=== PATIENT | female | born 1945 | race Caucasian/White ===

== ENCOUNTER 2022-02-05 08:04 | Outpatient (REF) | payer OTHER, SELFPAY | END 2022-02-05 08:05 | disposition home or self-care (01) | LOC: HO.HOSX 08:04 | PROVIDERS: Visit Provider Physician Assistant | DX: S42.201D Unspecified fracture of upper end of right humerus, subsequent encounter for fracture with routine healing (principal) | CPT/HCPCS: 99212 ==

== ENCOUNTER 2022-03-07 06:15 | Outpatient (REF) | payer OTHER, SELFPAY ==
--- NOTE | ~2022-03-07 | XR_ITS ---
EXAMINATION: XR SHOULDER, RIGHT CLINICAL INFORMATION: Pain. COMPARISON: Prior radiographs, most recently 01/29/2022. TECHNIQUE: AP neutral and scapular Y views of the right shoulder are submitted. FINDINGS: There is very mild bony demineralization. An old, healed fracture is redemonstrated of the right humeral neck, with residual deformity. A subacute, healing crescentic fracture is redemonstrated of the greater tuberosity and lateral head portion of the proximal right humerus. There is again mild displacement of the fracture fragment, with some callus formation. No dislocation is seen. The glenohumeral joint is intact. The acromioclavicular and coracoclavicular intervals are normal. XR/XR shoulder RT min 2V IMPRESSION: An old, healed right humeral neck fracture is seen, with residual deformity. There is a superimposed subacute, healing crescentic fracture fragment noted of the greater tuberosity and lateral head portion of the proximal right humerus. This shows stable mild displacement. There is good callus formation.
== END 2022-03-07 06:16 | disposition home or self-care (01) ==
LOC: HO.HOSX 06:15
PROVIDERS: Visit Provider Physician Assistant
DX: M25.511 Pain in right shoulder (principal)
CPT/HCPCS: 73030

== ENCOUNTER 2022-04-18 08:03 | Outpatient (REF) | payer OTHER, SELFPAY ==
--- NOTE | ~2022-04-18 | XR_ITS ---
EXAMINATION: XR SHOULDER, RIGHT CLINICAL INFORMATION: Fracture. COMPARISON: Previous x-ray most recent February 2022. TECHNIQUE: Three views of the right shoulder. FINDINGS: There is an old right humeral neck fracture. There is a healing right greater tuberosity fracture. Fracture fragment projects superior posterior to the humeral head. This does not appear appreciably changed. Glenohumeral alignment is normal. There is arthritis at the acromioclavicular joint. Soft tissues are unremarkable. XR/XR shoulder RT min 2V IMPRESSION: Healing displaced right greater tuberosity fracture. Old healed right humeral neck fracture.
== END 2022-04-18 08:04 | disposition home or self-care (01) ==
LOC: HO.HOSX 08:03
PROVIDERS: Visit Provider Physician Assistant
DX: M25.511 Pain in right shoulder (principal)
CPT/HCPCS: 73030

== ENCOUNTER 2022-05-22 15:00 | Outpatient (RCR) | payer OTHER, SELFPAY ==
[2022-04-01 14:06] VITALS: BP 78/45; PULSE 56
--- NOTE | 2022-04-01 14:59 | MHC.PT.EP ---
[facility] [place] [facility] [place] [facility] [place] [facility] [address] [phone] F: [phone] F: [phone] F: [phone] F: [phone] Physical Therapy Plan of Care Date of Evaluation: Date of Surgery: NA Diagnosis: Unspecified fracture of upper end of unspecified humerus, intial encounter for closed fracture of proximal end of humerus. (R humerus fracture) Assessment: Louisa is a 76 year old female who is referred to PT for Unspecified fracture of upper end of unspecified humerus, intial encounter for closed fracture of proximal end of humerus(R humerus fracture) . She is 2.5 month post fracture. On PT examination she presented with 8/10 pain in R shoulder which gets worse with movements, TTP over R shoulder joint line, decreased R shoulder ROM, decreased R shoulder strength, and altered posture. Due to these impairments she has difficulty performing ADLS which require her to reach and carry heavy weights. 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 She would benefit from skilled PT to address the aforementioned impairments and improve tolerance to functional activities. Frequency and Duration: The patient will be seen 2/week for 6 weeks. Short Term Goals: 1. Pt will have 50% decrease in pain which will enable to sleep without pain in 2 weeks. 2. Pt will be able move shoulder through all planes of motion without pain which will enable her to dress her upper body without limitations in 3 weeks. Penitentiary Goals: 1. Pt will demonstrate an increase in muscle strength by 1 grade which will enable to remove things from over head cabinets without help in 5 weeks. 2. Pt will be independent with HEP and return to PLOF in 6 weeks. Treatment Plan: Modalities to reduce pain, spasms and effusion. Manual therapy to restore motion and function. Therapeutic exercise to improve strength and flexibility. Neuromuscular re-education for posture and balance. Therapeutic activities to return to functional activities of daily living. Electronically signed by: Brea Moreno PT DPT Please sign and return to therapist. Thank you for your referral.
--- NOTE | 2022-05-23 13:59 | MHC.PT.DC ---
[facility] [place] [facility] [place] [facility] [address]i Nicole [address] [phone] F: [phone] F: [phone] F: [phone] F: [phone] Physical Therapy Discharge Report Diagnosis: Unspecified fracture of upper end of unspecified humerus, intial encounter for closed fracture of proximal end of humerus. (R humerus fracture) Date of Surgery: NA Date of Evaluation: 04/01/22 Date of Discharge: 05/22/22 Treatments to Date: 11 Cancellations to Date: 0 No Shows to Date: Discharge Status: Achieved Goals Improved Function Independent with HEP Discharge Summary: She has demonstrated significant improvement in ROM, strength and improved her functional ability with ADLs, making it easier to wash her hair, reach high cabinet and bathe. She can continue with HEP and is discharged from PT. Electronically signed by: Josefina Golden, PT, DPT Please sign and return to therapist. Thank you for your referral.
== END 2022-05-23 13:59 | disposition home or self-care (01) ==
LOC: HO.PT 15:00
PROVIDERS: PCP Family Medicine; Visit Provider Physician Assistant
DX: S42.201D Unspecified fracture of upper end of right humerus, subsequent encounter for fracture with routine healing (principal)
CPT/HCPCS: 97110; 97140; 97161

== ENCOUNTER 2022-05-30 12:30 | Outpatient (REF) | payer OTHER, SELFPAY ==
--- NOTE | ~2022-05-30 | XR_ITS ---
EXAMINATION: XR SHOULDER, RIGHT CLINICAL INFORMATION: Pain right shoulder. COMPARISON: None TECHNIQUE: 3 views of the right shoulder. FINDINGS: The bones and soft tissues are normal. No fracture. Glenohumeral and acromioclavicular alignment is anatomic with normal joint space. No abnormal soft tissue calcifications. XR/XR shoulder RT min 2V IMPRESSION: Unremarkable right shoulder.
== END 2022-05-30 12:31 | disposition home or self-care (01) ==
LOC: HO.HOSX 12:30
PROVIDERS: Visit Provider Physician Assistant
DX: S42.201A Unspecified fracture of upper end of right humerus, initial encounter for closed fracture (principal)
CPT/HCPCS: 73030; 99212

== ENCOUNTER 2022-10-21 13:29 | Inpatient (IN) | payer OTHER, SELFPAY ==
[2022-10-21] VITALS (8 sets, daily range): BP systolic 99–154; BP diastolic 57–119; PULSE 78–131; RESP 16–27; TEMP 36.3–37.1; O2SAT 92–98; BMI 24.9
--- NOTE | ~2022-10-21 | XR_ITS ---
EXAMINATION: XR CHEST CLINICAL INFORMATION: Shortness of breath. COMPARISON: 06/14/2019 chest radiograph. TECHNIQUE: Frontal view of the chest was obtained. FINDINGS: Left upper lobe infiltrates are seen. There is mild elevation of the left hemidiaphragm. Surgical clips overlie the left cardiac margin. Multilevel sternotomy wires are again noted without interval change. Mild cardiac enlargement. The mediastinal structures are unremarkable. XR/XR chest 1V IMPRESSION: Left upper lobe infiltrate/atelectasis.
--- NOTE | ~2022-10-21 | US_ITS ---
EXAMINATION: US VENOUS ULTRASOUND WITH DOPPLER LOWER EXTREMITY, BILATERAL CLINICAL INFORMATION: Swelling. Edema in the calf. COMPARISON: Venous Doppler ultrasound exam right lower extremity 08/09/2019 TECHNIQUE: Ultrasound of the deep veins is performed from the hip to the calf with compression sonography and color and pulse Doppler assessment. Spectral analysis with color-flow imaging is performed. FINDINGS: RIGHT: There is normal venous compression and respiratory variation and augmented flow. The visualized common femoral vein, superficial femoral vein, profunda femoral vein, popliteal vein, and the trifurcation region shows no evidence of deep venous thrombosis. There is no significant popliteal fossa cyst. LEFT: There is normal venous compression and respiratory variation and augmented flow. The visualized common femoral vein, superficial femoral vein, profunda femoral vein, popliteal vein, and the trifurcation region shows no evidence of deep venous thrombosis. There is no significant popliteal fossa cyst. If the patient's symptoms persist, followup ultrasound in 5 days 7 days might be of value to exclude proximal propagation from a non-visualized calf vein. US/US venous duplex LE IMPRESSION: No DVT demonstrated in the bilateral lower extremity.
--- NOTE | ~2022-10-21 | CT_ITS ---
EXAMINATION: CT CHEST WITHOUT CONTRAST CLINICAL INFORMATION: Abnormal x-ray. Shortness of breath. COMPARISON: Chest x-ray 10/21/2022 TECHNIQUE: Multidetector volumetric CT imaging of the chest was done. Axial MIP volume rendering provided. Sagittal and coronal reformatted images were obtained. This CT examination was performed using dose optimization techniques as appropriate, variously including the following: *Automated exposure control *Adjustment of mA and/or kV according to patient size (this includes techniques or standardized protocols for targeted exams where dose is matched to indication/reason for exam; i.e. extremities or head) *Use of iterative reconstruction technique DLP: 219 mGy-cm FINDINGS: LUNGS: Patchy alveolar and interstitial airspace opacity with air bronchograms in the left upper and left lower lobe. There are also a few scattered groundglass opacities in the right lung. MEDIASTINUM: Borderline lymphadenopathy at the AP window and pretracheal retrovascular space with lymph nodes measuring up to about 1.2 cm in short axis diameter. The heart size is normal. No pericardial effusion. Scattered vascular calcifications of the wall of aorta. No aneurysm of aorta. Moderate volume of coronary artery calcification. Status post median sternotomy. Thyroid is unremarkable. CORONARY ARTERY CALCIFICATION: Moderate volume of coronary calcification. PLEURA: Small to moderate volume bilateral pleural effusions AXILLA: No lymphadenopathy. UPPER ABDOMEN: Calcified gallstones in neck of the gallbladder measuring 1.5 cm. There are a few hepatic cysts. Largest hepatic cyst is in the left lobe of liver measuring 2.2 cm. Multiple healed left-sided rib fractures. No acute osseous abnormality. Chronic degenerative change and posttraumatic changes of the right humeral head and glenohumeral joint OSSEOUS STRUCTURES: Status post median sternotomy. CT/CT chest wo IV con IMPRESSION: 1. Patchy alveolar and interstitial airspace opacity in the left lung. There are also a few scattered groundglass opacities in the right lung. 2. Small to moderate volume bilateral pleural effusions. 3. Cholelithiasis. 4. Status post median sternotomy. Fleischner guidelines were followed.
--- NOTE | 2022-10-21 13:39 | ED_ITS ---
HPI - Extremity Problem General Chief complaint: General Medical <ESSENCE Becerra - Last Filed: 10/21/22 13:45> Stated complaint: edema both legs <ESSENCE Becerra - Last Filed: 10/21/22 13:45> Time Seen by Provider: 10/21/22 14:20 <ESSENCE Becerra - Last Filed: 10/21/22 13:45> Source: patient <Aurelia Mcdonough MD - Last Filed: 10/21/22 18:11> Mode of arrival: ambulatory <Aurelia Mcdonough MD - Last Filed: 10/21/22 18:11> Limitations: no limitations <Aurelia Mcdonough MD - Last Filed: 10/21/22 18:11> History of Present Illness HPI Narrative: A 77-year-old female brought in by her DIGITAL COURT REPORTER for evaluation of bilateral leg swelling. Patient with history of CAD, quadruple bypass open-heart surgery, CHF, HTN, CKD. Presented today for evaluation of bilateral lower leg extremities, patient declined exertional dyspnea or orthopnea or PND. Bilateral lower extremities started as mild now it is getting more extending to above the knee. No fever, no chills. <Aurelia Mcdonough MD - Last Filed: 10/21/22 18:11> Related Data Home medications: Home Medications Medication Instructions Recorded Confirmed albuterol sulfate 90 mcg/actuation 2 puff inhalation BID PRN Cough 10/21/22 10/21/22 aerosol inhaler calcium carbonate 200 mg calcium 400 mg PO BID 10/21/22 10/21/22 (500 mg) chewable tablet (Antacid (calcium carbonate)) carboxymethylcellulose sodium 0.5 1 drp ophthalmic (eye) QID PRN Dry 10/21/22 10/21/22 % eye drops in a dropperette Eye(S) clonidine 0.3 mg/24 hr weekly 1 patch transdermal QWEEK 10/21/22 10/21/22 transdermal patch ferrous sulfate 325 mg (65 mg 325 mg PO DAILY 10/21/22 10/21/22 iron) tablet furosemide 20 mg tablet 40 mg PO DAILY 10/21/22 10/21/22 losartan 25 mg tablet 25 mg PO DAILY 10/21/22 10/21/22 mirabegron 25 mg tablet,extended 25 mg PO DAILY 10/21/22 10/21/22 release 24 hr montelukast 10 mg tablet 10 mg PO BEDTIME 10/21/22 10/21/22 multivitamin 1 tab PO DAILY 10/21/22 10/21/22 potassium chloride 20 mEq oral 40 meq PO DAILY 10/21/22 10/21/22 packet psyllium 2 packet PO DAILY 10/21/22 10/21/22 rosuvastatin 40 mg tablet 40 mg PO DAILY 10/21/22 10/21/22 sennosides 8.6 mg-docusate sodium 1 tab-cap PO BID 10/21/22 10/21/22 50 mg tablet (Senna Plus) Previous Rx's Medication Instructions Recorded bupropion HCl 200 mg tablet,12 hr 200 mg PO DAILY #90 tabs 02/05/22 sustained-release carvedilol 25 mg tablet 25 mg PO BID #180 tabs 02/05/22 clopidogrel 75 mg tablet 75 mg PO DAILY #90 tabs 02/05/22 pantoprazole 40 mg tablet,delayed 40 mg PO DAILY #90 tabs 02/05/22 release venlafaxine 75 mg capsule,extended 75 mg PO DAILY #90 caps 02/05/22 release 24 hr <ESSENCE Becerra - Last Filed: 10/21/22 13:45> Allergies/Adverse reactions: Allergies Allergy/AdvReac Type Severity Reaction Status Date / Time iodine Allergy Unknown Unknown Verified 10/21/22 13:40 amlodipine [From [facility]] AdvReac Mild FATIGUE Verified 10/21/22 13:40 jovi inhibitors Allergy Unknown Unknown Uncoded 10/21/22 13:40 bees Allergy Unknown Unknown Uncoded 10/21/22 13:40 cardiac med not sure of the Allergy Unknown Unknown Uncoded 10/21/22 13:40 na telfa Allergy Unknown Unknown Uncoded 10/21/22 13:40 <ESSENCE Becerra - Last Filed: 10/21/22 13:45> Review of Systems Review of Systems: All other systems are reviewed and are negative Constitutional: Reports as per HPI and Reports no additional constitutional complaints Eyes: Reports as per HPI and Reports no additional eye complaints Reports system reviewed and no additional complaints, except as documented Cardiovascular: Reports as per HPI and Reports no additional cardiovascular complaints Respiratory: Reports as per HPI and Reports no additional respiratory complaints Gastrointestinal: Reports as per HPI and Reports no additional gastrointestinal complaints Genitourinary: Reports no additional female genitourinary complaints Musculoskeletal: Reports no additional musculoskeletal complaints Skin/Breast: Reports system reviewed and no additional complaints, except as docu Psychiatric: Reports no additional psychiatric complaints Endocrine: Reports no additional endocrine complaints Hematologic/Lymphatic: Reports no additional hematologic/lymphatic complaints Allergic/Immunologic: Reports no additional allergic/immunologic complaints Reports system reviewed and no additional complaints, except as documented and Reports Abnormal speech present <Aurelia Mcdonough MD - Last Filed: 10/21/22 18:11> [facility] Past Medical History Medical History: Medical History (Updated 10/21/22 @ 16:00 by Aurelia Mcdonough MD) Adjustment disorder Allergic rhinitis Anemia Asthma Atherosclerotic heart disease of [place] coronary artery with other forms of angina pectoris Chronic kidney disease Heart failure HTN (hypertension) Impaired fasting glucose Migraine Mixed hyperlipidemia Osteoporosis Traumatic brain injury Vitamin D deficiency <ESSENCE Becerra - Last Filed: 10/21/22 13:45> Surgical History: Surgical History (Updated 10/21/22 @ 16:50 by ESSENCE Guevara) H/O four vessel coronary artery bypass graft <ESSENCE Becerra - Last Filed: 10/21/22 13:45> Social History Social History: Social History Alcohol intake: current Alcohol intake frequency: a few times a month Patient Tobacco Use Status: Former Tobacco user Quit Date: 1970 Smoked in Last 30 Days: No Use of substances other than those prescribed or required for medical reasons: No Advance Directives: Yes Advance Directives on File: No Nutrition Risks: No Nutritional Risk Current occupational status: retired 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, 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 <ESSENCE Becerra - Last Filed: 10/21/22 13:45> Physical Exam Vital Signs: Vital Signs: Last Vital Signs Temp 97.8 F 10/21/22 16:49 Pulse 11 L 10/21/22 16:49 Resp 20 10/21/22 16:49 BP 154/119 H 10/21/22 16:49 Pulse Ox 92 10/21/22 16:49 O2 Del Method Room Air 10/21/22 16:49 BMI result Body Mass Index 24.9 <ESSENCE Becerra - Last Filed: 10/21/22 13:45> Vital Signs: Last Vital Signs Temp 97.8 F 10/21/22 16:49 Pulse 11 L 10/21/22 16:49 Resp 20 10/21/22 16:49 BP 154/119 H 10/21/22 16:49 Pulse Ox 92 10/21/22 16:49 O2 Del Method Room Air 10/21/22 16:49 BMI result Body Mass Index 24.9 Vital signs have been reviewed as appeared to be correct. Blood pressure elevated. Heart rate elevated. Respiration rate normal. Temperature normal. Oxygen saturation normal. <Aurelia Mcdonough MD - Last Filed: 10/21/22 18:11> Appearance: Alert. Oriented X3. No acute distress. Head: Normal external exam. Normocephalic. Atraumatic. No [place] signs noted. No raccoon eyes noted Eyes: PERRLA. EOMI. Conjunctiva and sclera normal. Eyelids normal. ENT: TM's Normal. Pharynx normal. Uvula midline. Moist mucous membranes. No trismus noted. No drooling noted. No muffled voice noted. Neck: Normal inspection. Neck supple. FROM. No adenopathy. Thyroid Normal. No meningeal signs. No neck mass noted. CVS: Normal heart rate and rhythm. Heart sound normal. No murmurs noted. Pulses normal throughout. Respiratory: No respiratory distress. Painless inspiration. Breath sounds normal. No wheezes/rales/rhonchi noted. Chest nontender. No accessory muscle usage noted or decreased air movement noted. Abdomen: Soft and nontender. Bowel sounds normal in all 4 quadrants. No distention noted. No organomegaly noted. No visible injury noted. Back: No CVA tenderness. Full range of motion noted. Skin: Skin warm and dry. Normal skin color. Normal skin turgor. No rashes/lesions/lacerations noted. Extremities:+3 lower extremity edema bilaterally. Extremities exhibit normal range of motion. Extremities nontender. Neuro: Oriented X 3. Cranial nerve exam: II-XII are grossly intact No motor deficit. No sensory deficit. Reflexes normal. <Aurelia Mcdonough MD - Last Filed: 10/21/22 18:11> Course Course Course Narrative: RME - 77 y/o female CAD s/p CABG 2006 @ [facility], CHF on lasix 40 mg daily, CKD, diverticulosis, who presents to the ER for evaluation of bilateral leg swelling and pain that started [address] REPORTER noticed it last week and it has been getting worse. She also reports shortness of breath. HR 133 in triage. BP 150s. Nontoxic, speaking in complete sentences. No chest pains or SOB at this time. She is not on anticoagulation. Plan: EKG, labs, CXR, LE dopplers <ESSENCE Becerra - Last Filed: 10/21/22 13:45> Reevaluation(s) Reevaluation #1: 77-year-old female came in for bilateral lower extremities swelling kenia luation found to be an new onset rapid atrial flutter, patient responded to 20 mg of Cardizem IV heart rate is ranging from 90s to 110s maintenance oral Cardizem was given, patient also was given 40 mg of Lasix for diuresis. Troponin elevation with no delta change. Bilateral lower extremities show no DVT. No severe sepsis or septic shock, slight lactic acidosis due to CHF, tachycardia/tachypnea is due to atrial fibrillation and not infection. <Aurelia Mcdonough MD - Last Filed: 10/21/22 18:11> Time: 15:51 <Aurelia Mcdonough MD - Last Filed: 10/21/22 18:11> Medications Administered Generic Name Dose Route Start Last Admin Trade Name Freq PRN Reason Stop Dose Admin Enoxaparin Sodium 60 mg 10/21/22 17:00 10/21/22 17:27 Enoxaparin Sodium 40 Mg/0.4 Ml Syringe SUBCUT 60 mg Q12H LAVERN Administration Discontinued Medications Generic Name Dose Route Start Last Admin Trade Name Freq PRN Reason Stop Dose Admin Diltiazem HCl 20 mg 10/21/22 14:30 10/21/22 14:42 Diltiazem Hcl 50 Mg/10 Ml Vial IVPUSH 10/21/22 14:31 20 mg STAT STA Administration Diltiazem HCl 30 mg 10/21/22 15:49 10/21/22 16:31 Diltiazem Hcl 30 Mg Tablet PO 10/21/22 15:50 30 mg ONCE ONE Administration Protocol Furosemide 40 mg 10/21/22 15:43 10/21/22 16:34 Furosemide 40 Mg/4 Ml Vial IVPUSH 10/21/22 15:44 40 mg ONCE ONE Administration Protocol Ceftriaxone Sodium 1 gm/ 50 mls @ 100 mls/hr 10/21/22 16:01 10/21/22 17:24 Sodium Chloride IV 10/21/22 16:30 Infused ONCE ONE Infusion <ESSENCE Becerra - Last Filed: 10/21/22 13:45> Medications Administered Generic Name Dose Route Start Last Admin Trade Name Freq PRN Reason Stop Dose Admin Enoxaparin Sodium 60 mg 10/21/22 17:00 10/21/22 17:27 Enoxaparin Sodium 40 Mg/0.4 Ml Syringe SUBCUT 60 mg Q12H LAVERN Administration Discontinued Medications Generic Name Dose Route Start Last Admin Trade Name Freq PRN Reason Stop Dose Admin Diltiazem HCl 20 mg 10/21/22 14:30 10/21/22 14:42 Diltiazem Hcl 50 Mg/10 Ml Vial IVPUSH 10/21/22 14:31 20 mg STAT STA Administration Diltiazem HCl 30 mg 10/21/22 15:49 10/21/22 16:31 Diltiazem Hcl 30 Mg Tablet PO 10/21/22 15:50 30 mg ONCE ONE Administration Protocol Furosemide 40 mg 10/21/22 15:43 10/21/22 16:34 Furosemide 40 Mg/4 Ml Vial IVPUSH 10/21/22 15:44 40 mg ONCE ONE Administration Protocol Ceftriaxone Sodium 1 gm/ 50 mls @ 100 mls/hr 10/21/22 16:01 10/21/22 17:24 Sodium Chloride IV 10/21/22 16:30 Infused ONCE ONE Infusion <Aurelia Mcdonough MD - Last Filed: 10/21/22 18:11> Medical Decision Making Differential Diagnosis Differential Diagnoses: The differential diagnosis associated with the presentation includes (CHF, ACS, DVT, atrial flutter/atrial fibrillation, acute on chronic renal insufficiency, electrolyte disturbance, anemia.) <Aurelia Mcdonough MD - Last Filed: 10/21/22 18:11> Admission/Observation Consideration of admission/observation: Escalation of care including admission/observation considered <Aurelia Mcdonough MD - Last Filed: 10/21/22 18:11> Consult Healthcare Provider Management of the patient was discussed with: Hospitalist <Aurelia Mcdonough MD - Last Filed: 10/21/22 18:11> Lab Data [facility] Lab Attestation statement: I reviewed the patient's lab results. <Aurelia Mcdonough MD - Last Filed: 10/21/22 18:11> Result Diagrams: 10/21/22 14:14 10/21/22 14:14 <ESSENCE Becerra - Last Filed: 10/21/22 13:45> Labs: Lab Results 10/21/22 10/21/22 10/21/22 Range/Units 14:14 14:14 14:14 WBC 4.9 (4.8-10.8) X10*3/uL RBC 3.92 L (4.20-5.50) X10*6/uL Hgb 13.3 (12.0-16.0) g/dl Hct 41.2 (37.0-47.0) % MCV 105.1 H (80.0-98.0) fL MCH 33.9 H (27.0-33.0) pg MCHC 32.3 (31.0-35.0) g/dl RDW 14.9 (11.0-16.0) % Plt Count 204 (160-400) X10*3/uL MPV 10.8 (9.4-12.3) fL Immature Gran % (Auto) 0.2 (0.0-0.4) % Neut % (Auto) 68.4 (45-73) % Lymph % (Auto) 19.2 L (20-40) % Davidson % (Auto) 9.4 (2-11) % Eos % (Auto) 1.2 (0-4) % Baso % (Auto) 1.6 (0-2) % Lymph # (Auto) 0.9 L (1.2-4.9) X10*3/uL Davidson # (Auto) 0.5 (0.1-1.2) X10*3/uL Eos # (Auto) 0.1 (0.0-0.4) X10*3/uL Baso # (Auto) 0.1 (0.0-0.2) X10*3/uL Abs Immat Gran (auto) 0.01 (0.00-0.03) X10*3/uL Absolute Neuts (auto) 3.4 (2.0-8.3) x10*3/uL Absolute Nucleated RBC 0.000 (0.0-0.012) X10*3/uL Nucleated RBC % (auto) 0.0 (0.0-0.2) /100WBC Sodium 139 (135-145) mmol/L Potassium 3.6 (3.3-5.1) mmol/L Chloride 103 (96-108) mmol/L Carbon Dioxide 23 (22-29) mmol/L Anion Gap 17 (12-20) BUN 19 H (9-16) mg/dL Creatinine 1.45 H (0.5-1.4) mg/dL Estim Creat Clear Calc 27.4 Estimated GFR 35 Random Glucose 133 H (60-115) mg/dL Calcium 9.2 (8.4-10.2) mg/dL Magnesium 2.2 (1.6-2.6) mg/dL Total Bilirubin 1.3 H (0.0-1.0) mg/dL Direct Bilirubin 0.4 (0.0-0.5) mg/dL AST 28 (5-31) U/L ALT 17 (0-31) U/L Alkaline Phosphatase 86 (39-117) U/L Troponin I High Sens (<3.5-17.0) ng/L B-Natriuretic Peptide 2735 H (<100) pg/mL Total Protein 6.2 L (6.5-8.0) g/dL Albumin 3.7 (3.5-5.0) g/dL Vitamin B12 328 (200-900) pg/mL Folate 10.3 (> or = 4.0) ng/mL TSH 1.06 (0.32-4.0) uIU/mL COVID-19 (THOMAS) (Negative) COVID-19 Clin Com 10/21/22 10/21/22 Range/Units 14:14 14:36 WBC (4.8-10.8) X10*3/uL RBC (4.20-5.50) X10*6/uL Hgb (12.0-16.0) g/dl Hct (37.0-47.0) % MCV (80.0-98.0) fL MCH (27.0-33.0) pg MCHC (31.0-35.0) g/dl RDW (11.0-16.0) % Plt Count (160-400) X10*3/uL MPV (9.4-12.3) fL Immature Gran % (Auto) (0.0-0.4) % Neut % (Auto) (45-73) % Lymph % (Auto) (20-40) % Davidson % (Auto) (2-11) % Eos % (Auto) (0-4) % Baso % (Auto) (0-2) % Lymph # (Auto) (1.2-4.9) X10*3/uL Davidson # (Auto) (0.1-1.2) X10*3/uL Eos # (Auto) (0.0-0.4) X10*3/uL Baso # (Auto) (0.0-0.2) X10*3/uL Abs Immat Gran (auto) (0.00-0.03) X10*3/uL Absolute Neuts (auto) (2.0-8.3) x10*3/uL Absolute Nucleated RBC (0.0-0.012) X10*3/uL Nucleated RBC % (auto) (0.0-0.2) /100WBC Sodium (135-145) mmol/L Potassium (3.3-5.1) mmol/L Chloride (96-108) mmol/L Carbon Dioxide (22-29) mmol/L Anion Gap (12-20) BUN (9-16) mg/dL Creatinine (0.5-1.4) mg/dL Estim Creat Clear Calc Estimated GFR Random Glucose (60-115) mg/dL Calcium (8.4-10.2) mg/dL Magnesium (1.6-2.6) mg/dL Total Bilirubin (0.0-1.0) mg/dL Direct Bilirubin (0.0-0.5) mg/dL AST (5-31) U/L ALT (0-31) U/L Alkaline Phosphatase (39-117) U/L Troponin I High Sens 52.3 H* (<3.5-17.0) ng/L B-Natriuretic Peptide (<100) pg/mL Total Protein (6.5-8.0) g/dL Albumin (3.5-5.0) g/dL Vitamin B12 (200-900) pg/mL Folate (> or = 4.0) ng/mL TSH (0.32-4.0) uIU/mL COVID-19 (THOMAS) Negative (Negative) COVID-19 Clin Com See Note <ESSENCE Becerra - Last Filed: 10/21/22 13:45> Lab Results 10/21/22 10/21/22 10/21/22 Range/Units 14:14 14:14 14:14 WBC 4.9 (4.8-10.8) X10*3/uL RBC 3.92 L (4.20-5.50) X10*6/uL Hgb 13.3 (12.0-16.0) g/dl Hct 41.2 (37.0-47.0) % MCV 105.1 H (80.0-98.0) fL MCH 33.9 H (27.0-33.0) pg MCHC 32.3 (31.0-35.0) g/dl RDW 14.9 (11.0-16.0) % Plt Count 204 (160-400) X10*3/uL MPV 10.8 (9.4-12.3) fL Immature Gran % (Auto) 0.2 (0.0-0.4) % Neut % (Auto) 68.4 (45-73) % Lymph % (Auto) 19.2 L (20-40) % Davidson % (Auto) 9.4 (2-11) % Eos % (Auto) 1.2 (0-4) % Baso % (Auto) 1.6 (0-2) % Lymph # (Auto) 0.9 L (1.2-4.9) X10*3/uL Davidson # (Auto) 0.5 (0.1-1.2) X10*3/uL Eos # (Auto) 0.1 (0.0-0.4) X10*3/uL Baso # (Auto) 0.1 (0.0-0.2) X10*3/uL Abs Immat Gran (auto) 0.01 (0.00-0.03) X10*3/uL Absolute Neuts (auto) 3.4 (2.0-8.3) x10*3/uL Absolute Nucleated RBC 0.000 (0.0-0.012) X10*3/uL Nucleated RBC % (auto) 0.0 (0.0-0.2) /100WBC Sodium 139 (135-145) mmol/L Potassium 3.6 (3.3-5.1) mmol/L Chloride 103 (96-108) mmol/L Carbon Dioxide 23 (22-29) mmol/L Anion Gap 17 (12-20) BUN 19 H (9-16) mg/dL Creatinine 1.45 H (0.5-1.4) mg/dL Estim Creat Clear Calc 27.4 Estimated GFR 35 Random Glucose 133 H (60-115) mg/dL Calcium 9.2 (8.4-10.2) mg/dL Magnesium 2.2 (1.6-2.6) mg/dL Total Bilirubin 1.3 H (0.0-1.0) mg/dL Direct Bilirubin 0.4 (0.0-0.5) mg/dL AST 28 (5-31) U/L ALT 17 (0-31) U/L Alkaline Phosphatase 86 (39-117) U/L Troponin I High Sens (<3.5-17.0) ng/L B-Natriuretic Peptide 2735 H (<100) pg/mL Total Protein 6.2 L (6.5-8.0) g/dL Albumin 3.7 (3.5-5.0) g/dL Vitamin B12 328 (200-900) pg/mL Folate 10.3 (> or = 4.0) ng/mL TSH 1.06 (0.32-4.0) uIU/mL COVID-19 (THOMAS) (Negative) COVID-19 Clin Com 10/21/22 10/21/22 Range/Units 14:14 14:36 WBC (4.8-10.8) X10*3/uL RBC (4.20-5.50) X10*6/uL Hgb (12.0-16.0) g/dl Hct (37.0-47.0) % MCV (80.0-98.0) fL MCH (27.0-33.0) pg MCHC (31.0-35.0) g/dl RDW (11.0-16.0) % Plt Count (160-400) X10*3/uL MPV (9.4-12.3) fL Immature Gran % (Auto) (0.0-0.4) % Neut % (Auto) (45-73) % Lymph % (Auto) (20-40) % [place] % (Auto) (2-11) % Eos % (Auto) (0-4) % Baso % (Auto) (0-2) % Lymph # (Auto) (1.2-4.9) X10*3/uL Davidson # (Auto) (0.1-1.2) X10*3/uL Eos # (Auto) (0.0-0.4) X10*3/uL Baso # (Auto) (0.0-0.2) X10*3/uL Abs Immat Gran (auto) (0.00-0.03) X10*3/uL Absolute Neuts (auto) (2.0-8.3) x10*3/uL Absolute Nucleated RBC (0.0-0.012) X10*3/uL Nucleated RBC % (auto) (0.0-0.2) /100WBC Sodium (135-145) mmol/L Potassium (3.3-5.1) mmol/L Chloride (96-108) mmol/L Carbon Dioxide (22-29) mmol/L Anion Gap (12-20) BUN (9-16) mg/dL Creatinine (0.5-1.4) mg/dL Estim Creat Clear Calc Estimated GFR Random Glucose (60-115) mg/dL Calcium (8.4-10.2) mg/dL Magnesium (1.6-2.6) mg/dL Total Bilirubin (0.0-1.0) mg/dL Direct Bilirubin (0.0-0.5) mg/dL AST (5-31) U/L ALT (0-31) U/L Alkaline Phosphatase (39-117) U/L Troponin I High Sens 52.3 H* (<3.5-17.0) ng/L B-Natriuretic Peptide (<100) pg/mL Total Protein (6.5-8.0) g/dL Albumin (3.5-5.0) g/dL Vitamin B12 (200-900) pg/mL Folate (> or = 4.0) ng/mL TSH (0.32-4.0) uIU/mL COVID-19 (THOMAS) Negative (Negative) COVID-19 Clin Com See Note <Aurelia Mcdonough MD - Last Filed: 10/21/22 18:11> Independent Interpretation I performed an independent interpretation of an: EKG (Atrial fibrillation at 138 beats per minutes, otherwise normal intervals, no ST-T changes, no old EKG to compare.), Plain X-Ray (Pulmonary congestion with no overt is edema) and CT Scan (Chest: No infiltrate.) <Aurelia Mcdonough MD - Last Filed: 10/21/22 18:11> Radiology Impression Discussion of test interpretation with radiology: I have reviewed the radiologist's reading. <Aurelia Mcdonough MD - Last Filed: 10/21/22 18:11> Discharge Plan Discharge Clinical Impression: CHF (congestive heart failure), Bilateral edema of lower extremity, New onset a-fib <ESSENCE Becerra - Last Filed: 10/21/22 13:45> Patient Disposition: Admitted As Inpatient <ESSENCE Becerra - Last Filed: 10/21/22 13:45>
--- NOTE | 2022-10-21 13:46 | ECG_ITS ---
Test Reason : sob Blood Pressure : / mmHG Vent. Rate : 138 BPM Atrial Rate : 000 BPM P-R Int : 000 ms QRS Dur : 076 ms QT Int : 320 ms P-R-T Axes : 000 -01 178 degrees QTc Int : 484 ms Atrial fibrillation with rapid ventricular response with premature ventricular or aberrantly conducted complexes Possible Anterior infarct , age undetermined Abnormal ECG When compared with ECG of 14-JUN-2019 18:53, Significant changes have occurred Referred By: Emelina Kemp Electronically Signed By:Adam Lowery
--- NOTE | 2022-10-21 14:16 | PC.NURSE ---
pt AOx3, machine fur cleaner intact - Afib on alize. labs drawn, IV inserted. will cont to alize
[2022-10-21 14:18] LABS: MANUAL DIFF FLAG NO
[2022-10-21 14:29] LABS: Basophils Absolute Auto 0.1 X10*3/uL (0.0-0.2); Basophils Percent Auto 1.6 % (0-2); Eosinophils Absolute Auto 0.1 X10*3/uL (0.0-0.4); Eosinophils Percent Auto 1.2 % (0-4); Hematocrit 41.2 % (37.0-47.0); Hemoglobin 13.3 g/dl (12.0-16.0); Imm Gran Abs Auto 0.01 X10*3/uL (0.00-0.03); Imm Gran Pct Auto 0.2 % (0.0-0.4); Lymphocytes Absolute Auto 0.9 X10*3/uL (1.2-4.9); Lymphocytes Percent Auto 19.2 % (20-40); Mean Corpuscular HGB Conc 32.3 g/dl (31.0-35.0); Mean Corpuscular Hemoglobin 33.9 pg (27.0-33.0); Mean Corpuscular Volume 105.1 fL (80.0-98.0); Mean Platelet Volume 10.8 fL (9.4-12.3); Monocytes Absolute Auto 0.5 X10*3/uL (0.1-1.2); Monocytes Percent Auto 9.4 % (2-11); Neutrophils Absolute Auto 3.4 x10*3/uL (2.0-8.3); Neutrophils Percent Auto 68.4 % (45-73); Platelet Count 204 X10*3/uL (160-400); Red Blood Count 3.92 X10*6/uL (4.20-5.50); Red Cell Distribution Width 14.9 % (11.0-16.0); White Blood Count 4.9 X10*3/uL (4.8-10.8)
[2022-10-21] MEDS: dilTIAZem HCL 50 MG/10 ML VIAL 20 MG IVPUSH (14:42)
[2022-10-21 14:44] LABS: Alanine Aminotransferase 17 U/L (0-31); Albumin Level 3.7 g/dL (3.5-5.0); Alkaline Phosphatase 86 U/L (39-117); Anion Gap 17 (12-20); Aspartate Amino Transferase 28 U/L (5-31); Bilirubin Direct 0.4 mg/dL (0.0-0.5); Bilirubin Total 1.3 mg/dL (0.0-1.0); Blood Urea Nitrogen 19 mg/dL (9-16); Calcium 9.2 mg/dL (8.4-10.2); Carbon Dioxide 23 mmol/L (22-29); Chloride 103 mmol/L (96-108); Creatinine Clr Calc Pharmacy 27.4; Estimated Glomerular Filt Rate 35; Glucose Random 133 mg/dL (60-115); Magnesium 2.2 mg/dL (1.6-2.6); Potassium 3.6 mmol/L (3.3-5.1); Sodium 139 mmol/L (135-145); Total Protein 6.2 g/dL (6.5-8.0)
[2022-10-21 14:46] LABS: B Type Natriuretic Peptide 2735 pg/mL (<100)
[2022-10-21 14:52] LABS: COVID-19 Test Negative (Negative); IDNOW Serial# 08D9AD1C
[2022-10-21 14:55] LABS: Troponin-I High Sensitivity 52.3 ng/L (<3.5-17.0)
[2022-10-21] MEDS: dilTIAZem HCL 30 MG TABLET PO (16:31)
[2022-10-21] MEDS: Furosemide 40 MG/4 ML VIAL IVPUSH (16:34)
--- NOTE | 2022-10-21 16:38 | PM.IMHP ---
History of Present Illness Date of Service: 10/21/22 Attending physician on admission: Robson Aguila Chief Complaint: BLE edema 77-year-old female with history of CKD stage III, hypertension, osteoporosis, CAD s/p CABG x4 2005, hyperlipidemia, depression, and mild intermittent asthma presented to the ED earlier today with her CHUCK BONER for evaluation of bilateral lower extremity pitting edema that has been worsening over the last 4-5 days. She is also reporting mild dyspnea on exertion but denies any orthopnea or PND. She does have a known history of congestive heart failure and follows with Cardiology at the [place] in [place]. Has been compliant with diuretics, though states dose was reduced to 20mg by her ndt inspector. On arrival, vital stable except for tachycardia to 130, no hypotension. EKG ordered showed atrial fibrillation with RVR and premature ventricular or aberrantly conducted complexes with rate of 138. No ST or depressions. Hematology studies unchanged from baseline. Renal function baseline, electrolyte levels normal including magnesium of 2.2. Initial troponin 52.3, repeat pending. BNP 2735. CXR shows left upper lobe infiltrate versus atelectasis. Patient does endorse chronic cough which is occasionally productive but has not changed from baseline. Venous duplex of the bilateral lower extremities negative for DVT. Denies fevers, chills, abd pain, n/v/d, melena, hematochezia, lightheadedness, shortness of breath at rest, palpitations, or chest pain. In the ED, given 20 mg IV push diltiazem followed by 30 mg p.o. diltiazem and 40 mg IV push furosemide. Pt to be admitted for new onset AFib with RVR and CHF exacerbation. Review of Systems Review of Systems: General: No fevers, malaise, unintentional weight loss HEENT: No blurred vision, diplopia. No sore throat, nasal congestion, rhinorrhea, sinus pain, ear pain Cardiovascular: +BLE edema. No chest pain, palpitations Respiratory: +vo. No orthopnea, PND, wheezing, cough GI: +constipation. No abdominal pain, nausea, vomiting, diarrhea, melena, hematochezia : No dysuria, hematuria, increased urinary frequency, decreased urinary output MSK: No myalgia, back pain Neuro: No headaches, weakness, paresthesias Skin: No rashes or lesions [facility] Medical History (Updated 10/21/22 @ 16:00 by Aurelia Mcdonough MD) Adjustment disorder Allergic rhinitis Anemia Asthma Atherosclerotic heart disease of [place] coronary artery with other forms of angina pectoris Chronic kidney disease Heart failure HTN (hypertension) Impaired fasting glucose Migraine Mixed hyperlipidemia Osteoporosis Traumatic brain injury Vitamin D deficiency Surgical History (Updated 10/21/22 @ 16:50 by ESSENCE Guevara) H/O four vessel coronary artery bypass graft Social History Alcohol intake: current Alcohol intake frequency: a few times a month Patient Tobacco Use Status: Former Tobacco user Quit Date: 1970 Smoked in Last 30 Days: No Use of substances other than those prescribed or required for medical reasons: No Advance Directives: Yes Advance Directives on File: No Nutrition Risks: No Nutritional Risk Current occupational status: retired 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, 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 Meds Allergies Allergy/AdvReac Type Severity Reaction Status Date / Time iodine Allergy Unknown Unknown Verified 10/21/22 13:40 amlodipine [From [facility]] AdvReac Mild FATIGUE Verified 10/21/22 13:40 jovi inhibitors Allergy Unknown Unknown Uncoded 10/21/22 13:40 bees Allergy Unknown Unknown Uncoded 10/21/22 13:40 cardiac med not sure of the Allergy Unknown Unknown Uncoded 10/21/22 13:40 na telfa Allergy Unknown Unknown Uncoded 10/21/22 13:40 Active Medications: Current Medications Acetaminophen (Acetaminophen 325 Mg Tablet) 650 mg PO Q6H PRN PRN Reason: Pain, Mild (Pain Scale 1-3) Docusate Sodium (Docusate Sodium 100 Mg Capsule) 100 mg PO BID LAVERN Enoxaparin Sodium (Enoxaparin Sodium 40 Mg/0.4 Ml Syringe) 60 mg SUBCUT Q12H LAVERN Ondansetron HCl (Ondansetron Hcl 4 Mg/2 Ml Vial) 4 mg IVPUSH Q8H PRN PRN Reason: Nausea and Vomiting Pharmacy Consult (Consult Rx Perform Med Rec) 1 each MISCELLANE ONCE PRN PRN Reason: Consult order Sodium Chloride (0.9 % Sodium Chloride Flush 3 Ml Syringe) 3 ml IVFLUSH QSHIFT [facility] Home Medications Medication Instructions Recorded Confirmed Last Taken Type albuterol sulfate 90 mcg/actuation 2 puff inhalation BID PRN Cough 10/21/22 10/21/22 Unknown History aerosol inhaler calcium carbonate 200 mg calcium 400 mg PO BID 10/21/22 10/21/22 Unknown History (500 mg) chewable tablet (Antacid (calcium carbonate)) carboxymethylcellulose sodium 0.5 1 drp ophthalmic (eye) QID PRN Dry 10/21/22 10/21/22 Unknown History % eye drops in a dropperette Eye(S) clonidine 0.3 mg/24 hr weekly 1 patch transdermal QWEEK 10/21/22 10/21/22 Unknown History transdermal patch ferrous sulfate 325 mg (65 mg 325 mg PO DAILY 10/21/22 10/21/22 Unknown History iron) tablet furosemide 20 mg tablet 40 mg PO DAILY 10/21/22 10/21/22 Unknown History losartan 25 mg tablet 25 mg PO DAILY 10/21/22 10/21/22 Unknown History mirabegron 25 mg tablet,extended 25 mg PO DAILY 10/21/22 10/21/22 Unknown History release 24 hr montelukast 10 mg tablet 10 mg PO BEDTIME 10/21/22 10/21/22 Unknown History multivitamin 1 tab PO DAILY 10/21/22 10/21/22 Unknown History potassium chloride 20 mEq oral 40 meq PO DAILY 10/21/22 10/21/22 Unknown History packet psyllium 2 packet PO DAILY 10/21/22 10/21/22 Unknown History rosuvastatin 40 mg tablet 40 mg PO DAILY 10/21/22 10/21/22 Unknown History sennosides 8.6 mg-docusate sodium 1 tab-cap PO BID 10/21/22 10/21/22 Unknown History 50 mg tablet (Senna Plus) Physical Exam Vital Signs and Narrative: Vital Signs: Last Vital Signs Temp 98 F 10/21/22 13:40 Pulse 105 H 10/21/22 15:54 Resp 27 H 10/21/22 15:54 BP 146/119 H 10/21/22 15:54 Pulse Ox 98 10/21/22 15:54 O2 Del Method Room Air 10/21/22 15:54 BMI result Body Mass Index 24.9 Constitutional - Awake and Alert, No apparent distress Eyes - PERRLA, EOMI Cardiovascular - S1S2, irregularly irregular, tachycardia, 3+ pitting edema BLE Respiratory - Normal lung expansion, Normal respiratory effort, No respiratory distress, expiratory wheezing RLL Gastrointestinal - NT / ND; +BS; No rebound or guarding Extremities - no calf tenderness bilaterally, no swelling Skin - Warm/Dry Neurological - Alert & oriented x3 Psychological - Appropriate affect Results Labs 10/21/22 14:14 10/21/22 14:14 Labs: Laboratory Results - last 24 hr 10/21/22 10/21/22 10/21/22 14:14 14:14 14:14 MCV 105.1 H MCH 33.9 H MCHC 32.3 RDW 14.9 Plt Count 204 MPV 10.8 Immature Gran % (Auto) 0.2 Neut % (Auto) 68.4 Lymph % (Auto) 19.2 L [place] % (Auto) 9.4 Eos % (Auto) 1.2 Baso % (Auto) 1.6 Lymph # (Auto) 0.9 L [place] # (Auto) 0.5 Eos # (Auto) 0.1 Baso # (Auto) 0.1 Abs Immat Gran (auto) 0.01 Absolute Neuts (auto) 3.4 Absolute Nucleated RBC 0.000 Nucleated RBC % (auto) 0.0 Anion Gap 17 Estim Creat Clear Calc 27.4 Estimated GFR 35 Random Glucose 133 H Calcium 9.2 Magnesium 2.2 Total Bilirubin 1.3 H Direct Bilirubin 0.4 AST 28 ALT 17 Alkaline Phosphatase 86 Troponin I High Sens B-Natriuretic Peptide 2735 H Total Protein 6.2 L Albumin 3.7 COVID-19 (THOMAS) COVID-19 Clin Com 10/21/22 10/21/22 14:14 14:36 MCV MCH MCHC RDW Plt Count MPV Immature Gran % (Auto) Neut % (Auto) Lymph % (Auto) [place] % (Auto) Eos % (Auto) Baso % (Auto) Lymph # (Auto) [place] # (Auto) Eos # (Auto) Baso # (Auto) Abs Immat Gran (auto) Absolute Neuts (auto) Absolute Nucleated RBC Nucleated RBC % (auto) Anion Gap Estim Creat Clear Calc Estimated GFR Random Glucose Calcium Magnesium Total Bilirubin Direct Bilirubin AST ALT Alkaline Phosphatase Troponin I High Sens 52.3 H* B-Natriuretic Peptide Total Protein Albumin COVID-19 (THOMAS) Negative COVID-19 Clin Com See Note Imaging Radiologist's Impressions: Impressions Chest X-Ray 10/21/22 14:55 IMPRESSION: Left upper lobe infiltrate/atelectasis. Venous Duplex 10/21/22 15:48 IMPRESSION: No DVT demonstrated in the bilateral lower extremity. Assessment and Plan (1) New onset a-fib: Status: Acute (2) CHF (congestive heart failure): Status: Acute Plan 77-year-old female with history of CKD stage III, hypertension, osteoporosis, CAD s/p CABG x4 2005, hyperlipidemia, depression, and mild intermittent asthma admitted for new onset AFib w/ RVR and acute CHF exacerbation. #New onset Atrial Fibrillation with RVR -EKG w/ AFib, rate 138 -Given 20mg IV push dilt, 30mg PO diltiazem -Continue cardedilol 25mg BID -Echo ordered -[id number] score 6. No contraindication to anticoagulation. Initiate therapeutic Lovenox 60 mg b.i.d. -Mag normal, TSH pending -appreciate cardiology input -admit to telemetry # acute CHF exacerbation -BNP >2700. Small-moderate B/l pleural effusions on chest cCT -Given 40mg IV lasix in ED, continue lasix 40mg IV daily -Echo pending -Strict I&O -Cardiac diet -Appreciate cardiology input #Elevated trop- likely related to CHF -No CP, EKG non-ishemic -Initial trop 52, repeat 50.8 #Airspace opacities on chest CT -chest CT showing patchy alveolar and interstitial airspace opacities in the left lung as well as a few scattered ground-glass opacities in the right lung -Pt reports longstanding cough, former smoker -Will cover for bacterial etiology with ceftriaxone and doxycycline x 5 days (initiated 10/21) #CAD- no anginal CP -Continue plavix, BB. Not on statin #HTN- reasonably controlled -continue home meds #Depression -continue home meds #Mild intermittent asthma- no acute exacebration -albuterol prn DVT prophylaxis- therapeutic Lovenox Full code Med rec pending Patient requires inpatient stay at least 2 midnights for management of new onset atrial fibrillation and acute CHF exacerbation requiring close cardiac monitoring, IV diuresis, IV rate control medications, and expert consultation Time Spent With Patient Time: Total time managing care of this patient today ____ minutes. Quality Stroke Does the patient have a stroke diagnosis?: No VTE Prior VTE?: No VTE Risk Level:: Medical - moderate - high VTE Device Contraindication: Treatment Not Indicated VTE Drug Contraindication: N/A - Med Ordered
--- NOTE | 2022-10-21 16:40 | PC.NURSE ---
cardizem and lasix given per order. tech drawing BC. ABX not given yet
[2022-10-21] MEDS: cefTRIAXone sodium 1 GM in 0.9 % Sodium Chloride 50 ML IV (16:47)
--- NOTE | 2022-10-21 16:48 | PC.NURSE ---
blood cultures drawn, antibiotic hung. will cont to alize
--- NOTE | 2022-10-21 17:04 | PHA.MEDREC ---
[facility] ? Medication Reconciliation Pharmacy has completed the medication reconciliation.
[2022-10-21 17:22] LABS: Lactic Acid 2.1 mmol/L (0.5-2.0)
[2022-10-21] MEDS: Enoxaparin Sodium 40 MG/0.4 ML SYRINGE 60 MG SUBCUT (17:27)
[2022-10-21 17:38] LABS: Troponin-I High Sensitivity 50.8 ng/L (<3.5-17.0)
[2022-10-21 17:57] LABS: Folate 10.3 ng/mL (> or = 4.0); TSH reflex Free T4 1.06 uIU/mL (0.32-4.0); Vitamin B12 328 pg/mL (200-900)
--- NOTE | 2022-10-21 18:18 | PC.NURSE ---
this nurse spoke with ja who stated she tiger texted the RN on IMC at [phone] without response. this nurse has called the floor to give report
[2022-10-21 18:47] LABS: INTERNATIONAL NORM RATIO 1.1 (0.9-1.1); Prothrombin Time 12.9 SEC (10.0-13.1)
[2022-10-21 18:49] LABS: Partial Thromboplastin Time 33.9 SEC (26.0-36.4)
[2022-10-21 18:50] LABS: Reflex Lactate? Lactic Acid Added
[2022-10-21 19:52] LABS: ~Lactic Acid-LAB USE ONLY 2.2 mmol/L (0.5-2.0)
[2022-10-21] MEDS: carvediloL 25 MG TABLET PO (20:14)
[2022-10-21] MEDS: Doxycycline Hyclate 100 MG in 0.9 % Sodium Chloride 250 ML 166.67 MG IV (20:14)
[2022-10-21] MEDS: Montelukast Sodium 10 MG TABLET PO (20:14)
[2022-10-21 21:15] LABS: Reflex Lactate? 2 Y
[2022-10-21 22:07] LABS: ~Lactic Acid-LAB USE ONLY 1.8 mmol/L (0.5-2.0)
[2022-10-21] MEDS: cloNIDine 0.3 MG PATCH.TDWK TRANSDERMA (22:42)
[2022-10-22] MEDS: 0.9 % Sodium Chloride Flush 3 ML SYRINGE IVFLUSH ×4 (00:01→21:26)
[2022-10-22 03:42] VITALS: BP 111/68; PULSE 82; RESP 18; TEMP 36.5; O2SAT 96
[2022-10-22] MEDS: Enoxaparin Sodium 40 MG/0.4 ML SYRINGE 60 MG SUBCUT (04:38)
[2022-10-22 06:48] LABS: MANUAL DIFF FLAG NO
[2022-10-22 06:55] LABS: Basophils Absolute Auto 0.1 X10*3/uL (0.0-0.2); Basophils Percent Auto 1.2 % (0-2); Eosinophils Absolute Auto 0.1 X10*3/uL (0.0-0.4); Eosinophils Percent Auto 3.2 % (0-4); Hematocrit 35.8 % (37.0-47.0); Hemoglobin 11.7 g/dl (12.0-16.0); Imm Gran Abs Auto 0.01 X10*3/uL (0.00-0.03); Imm Gran Pct Auto 0.2 % (0.0-0.4); Lymphocytes Absolute Auto 0.8 X10*3/uL (1.2-4.9); Lymphocytes Percent Auto 19.5 % (20-40); Mean Corpuscular HGB Conc 32.7 g/dl (31.0-35.0); Mean Corpuscular Hemoglobin 33.7 pg (27.0-33.0); Mean Corpuscular Volume 103.2 fL (80.0-98.0); Mean Platelet Volume 10.7 fL (9.4-12.3); Monocytes Absolute Auto 0.5 X10*3/uL (0.1-1.2); Monocytes Percent Auto 11.8 % (2-11); Neutrophils Absolute Auto 2.8 x10*3/uL (2.0-8.3); Neutrophils Percent Auto 64.1 % (45-73); Platelet Count 163 X10*3/uL (160-400); Red Blood Count 3.47 X10*6/uL (4.20-5.50); Red Cell Distribution Width 14.9 % (11.0-16.0); White Blood Count 4.3 X10*3/uL (4.8-10.8)
--- NOTE | 2022-10-22 07:00 | CA_ITS ---
Transthoracic Echocardiogram Patient (Last, First, Middle): Louisa Gonzales, Gender: Female Date of : 1945 Age: 77 Procedure Date: 10/22/2022 Procedure Type: Transthoracic Echocardiogram Location[place] [facility] [place] Height: 154.94 cm Weight: 59.88 kg BSA: 1.58 m2 Heart Rate: 71 bpm BP: 111 / 68 mmHg Metallographic Technician: SB Referring MD: Traci LOWRY Symptoms: new onset afib rvr, chf exacerbation Study Quality: Adequate ECG Rhythm: Sinus Conclusions: - Normal left ventricular cavity size. There is normal left ventricular wall thickness. The left ventricular systolic function is moderate to severely decreased. The visually estimated ejection fraction is between 25-30%. - Mildly increased right ventricular cavity size. There is moderate to severely decreased right ventricular systolic function. - LA is moderately to severely dilated. The right atrium is moderately dilated. - There is mild to moderate tricuspid valve regurgitation. Significantly elevated right atrial pressure. There is no evidence of pulmonary hypertension. PA pressures are underestimated due to RV dysfunction. Findings Left Ventricle Normal left ventricular cavity size. There is normal left ventricular wall thickness. The left ventricular systolic function is moderate to severely decreased. The visually estimated ejection fraction is between 25-30%. Regional wall motion abnormalities can not be excluded due to suboptimal endocardial definition. There is paradoxical septal motion consistent with post-operative status. Diastolic function is indeterminate on the basis of available data. Right Ventricle Mildly increased right ventricular cavity size. There is moderate to severely decreased right ventricular systolic function. Atria LA is moderately to severely dilated. The right atrium is moderately dilated. Aortic Valve There is a normal trileaflet aortic valve. There is no aortic valve stenosis. There is no aortic valve regurgitation. Mitral Valve The mitral valve appears normal. There is trace mitral valve regurgitation. There is no mitral valve stenosis. Pulmonic Valve The pulmonic valve is normal. There is trace pulmonic valve regurgitation. Tricuspid Valve Normal tricuspid valve structure. There is mild to moderate tricuspid valve regurgitation. Significantly elevated right atrial pressure. There is no evidence of pulmonary hypertension. Great Vessels There is mild dilatation of the ascending aorta measuring 3.50 cm. The visualized portions of the pulmonary artery and branches are normal. Venous The inferior vena cava is dilated and collapses less than 50% with inspiration. Pericardium/Pleural There is no evidence of pericardial effusion. Prior Study Comparison No prior study available for comparison. Measurements 2D Linear Measurements IVSd: 0.73 0.6-0.9/0.6-1.0 cm LVIDd: 4.77 3.9-5.3/4.2-5.9 cm LVIDd Index: 3.02 2.4-3.2/2.2-3.1 cm/m2 LVIDs: 3.99 2.0-3.6 cm LVPWd: 0.90 0.7-1.1 cm LA Diam: 4.50 2.7-3.8/3.0-4.0 cm LAIDs Index: 2.85 1.5-2.3 cm/m2 LV Mass: 158.74 67-162/88-224 g LV Mass Index: 100.47 43-95/49-115 g/m2 LVOT Diam: 2.00 3.0+(-)1.3 cm 2D Systolic Function EF 4C: 24.10 >55% EF 2C: 43.00 >55% EF BiP: 34.20 >55% Mitral Valve MV Pk E: 0.89 Aortic Valve AoV Pk Mika: 1.11 AoV Pk Grad: 5.00 MADHAVI: 2.14 LVOT LVOT Pk Mika: 0.76 LVOT Mn Mika: 0.46 LVOT VTI: 0.12 LVOT Pk Grad: 2.00 LVOT Mn Grad: 1.00 LVOT Diam: 2.00 LVOT Area: 3.14 Diastolic Function MV Pk E: 0.89 Right Ventricle TAPSE (mm): 4.70 TVS' Mika: 3.50 Tricuspid Valve TR Pk Mika: 2.10 TR Pk Grad: 18.00 RA Press: 15.00 RVSP: 33.00 Great Vessels Aorta Sinus of Valsalva: 3.10 2.0-3.5 cm Ao Asc: 3.50 2.1-3.4 cm Pulmonary Valve PV Pk Mika: 0.80 Peak PV Grad: 3.00 Updated in Other Vendor System with Status of Final Adam Lowery MD electronically signed on 10/22/2022 3:49:50 PM with status of Final
[2022-10-22 07:19] LABS: Anion Gap 15 (12-20); Blood Urea Nitrogen 18 mg/dL (9-16); Calcium 8.7 mg/dL (8.4-10.2); Carbon Dioxide 24 mmol/L (22-29); Chloride 102 mmol/L (96-108); Creatinine Clr Calc Pharmacy 29.4; Estimated Glomerular Filt Rate 38; Glucose Random 101 mg/dL (60-115); Potassium 2.9 mmol/L (3.3-5.1); Sodium 138 mmol/L (135-145)
[2022-10-22 07:55] VITALS: BP 120/63; PULSE 76; RESP 16; TEMP 36.2; O2SAT 96
[2022-10-22] MEDS: Omeprazole 20 MG CAPSULE.DR PO (08:02)
[2022-10-22] MEDS: Sennosides/Docusate Sodium TABLET 1 TAB PO ×2 (08:02→21:26)
[2022-10-22] MEDS: Clopidogrel Bisulfate 75 MG TABLET PO (08:02)
[2022-10-22] MEDS: Atorvastatin Calcium 80 MG TABLET PO (08:02)
[2022-10-22] MEDS: Furosemide 40 MG TABLET PO (08:02)
[2022-10-22] MEDS: Losartan Potassium 25 MG TABLET PO (08:02)
[2022-10-22] MEDS: Multivitamin TABLET 1 TAB PO (08:02)
[2022-10-22] MEDS: Venlafaxine HCl ER 75 MG CAP.ER.24H PO (08:02)
[2022-10-22] MEDS: Furosemide 40 MG/4 ML VIAL IVPUSH ×2 (08:03→17:17)
[2022-10-22] MEDS: Potassium Chloride Packet 20 MEQ PACKET 40 MEQ PO (08:03)
[2022-10-22] MEDS: carvediloL 25 MG TABLET PO (08:03)
[2022-10-22] MEDS: Ferrous Sulfate 324 MG TABLET.DR PO (08:03)
[2022-10-22] MEDS: Doxycycline Hyclate 100 MG in 0.9 % Sodium Chloride 250 ML 166.67 MG IV (08:04)
--- NOTE | 2022-10-22 09:18 | MHC.CM.PN ---
CM met with Patient at bedside. Patient lives alone in a 4 story house with a stair glide to the second floor. [facility] receives [facility] [employer] every M/W/F for 2 hours each visit and she has a [facility] CM. Home/resume said services is the goal and CM has initiated and will follow for dc planning.Patient has received Moderna/Covid vax x4 and her PCP is Dr. Cherelle Dhillon.Patient's HCP is her Friend/Mercedes and her Brother/Marcelina.
--- NOTE | 2022-10-22 09:39 | P.PNIM_ITS ---
Subjective Subjective Date of Service: 10/22/22 Interval History: feeling better Physical Exam Vital Signs: Vital Signs: Last Vital Signs Temp 97.2 F 10/22/22 07:55 Pulse 76 10/22/22 07:55 Resp 16 10/22/22 07:55 BP 120/63 10/22/22 07:55 Pulse Ox 96 10/22/22 07:55 O2 Del Method Room Air 10/22/22 07:55 BMI result Body Mass Index 24.9 hard of hearing, alert, energetic, 2-3+ bilateral lower extremity edema, lungs clear Objective Data Active Medications Acetaminophen (Acetaminophen 325 Mg Tablet) 650 mg PO Q6H PRN PRN Reason: Pain, Mild (Pain Scale 1-3) Albuterol Sulfate (Albuterol Sulfate 90 Mcg 8 Gm Inhaler) 2 puff INHALE RQ4H PRN PRN Reason: Shortness of Breath/Wheezing Artificial Tears (Artificial Tears 15 Ml Drops) 1 drop EYE-BOTH QID PRN PRN Reason: Dry Eye(S) Atorvastatin Calcium (Atorvastatin Calcium 80 Mg Tablet) 80 mg PO DAILY [facility] Last Admin: 10/22/22 08:02 Dose: 80 mg Documented By: JUAN MANUEL Carvedilol (Carvedilol 25 Mg Tablet) 25 mg PO BID [facility]; Protocol Last Admin: 10/22/22 08:03 Dose: 25 mg Documented By: JUAN MANUEL Clonidine (Clonidine 0.3 Mg Patch.Tdwk) 0.3 mg TRANSDERMA Q7D [facility]; Protocol Last Admin: 10/21/22 22:42 Dose: 0.3 mg Documented By: DL Clopidogrel Bisulfate (Clopidogrel Bisulfate 75 Mg Tablet) 75 mg PO DAILY [facility] Last Admin: 10/22/22 08:02 Dose: 75 mg Documented By: JUAN MANUEL Enoxaparin Sodium (Enoxaparin Sodium 40 Mg/0.4 Ml Syringe) 60 mg SUBCUT Q12H [facility] Last Admin: 10/22/22 04:38 Dose: 60 mg Documented By: DL Ferrous Sulfate (Ferrous Sulfate 324 Mg Tablet.) 324 mg PO DAILY [facility] Last Admin: 10/22/22 08:03 Dose: 324 mg Documented By: JUAN MANUEL Furosemide (Furosemide 40 Mg/4 Ml Vial) 40 mg IVPUSH DAILY [facility]; Protocol Last Admin: 10/22/22 08:03 Dose: 40 mg Documented By: JUAN MANUEL Furosemide (Furosemide 40 Mg Tablet) 40 mg PO DAILY [facility]; Protocol Last Admin: 10/22/22 08:02 Dose: 40 mg Documented By: JUAN MANUEL Doxycycline Hyclate 100 mg/ (Sodium Chloride) 250 mls @ 166.67 mls/hr IV Q12H [facility] Last Admin: 10/22/22 08:04 Dose: 166.67 mls/hr Documented By: JUAN MANUEL Ceftriaxone Sodium 1 gm/ (Sodium Chloride) 50 mls @ 100 mls/hr IV Q24H [facility] Losartan Potassium (Losartan Potassium 25 Mg Tablet) 25 mg PO DAILY [facility]; Protocol Last Admin: 10/22/22 08:02 Dose: 25 mg Documented By: JUAN MANUEL Mirabegron (Mirabegron 25 Mg Tab.Er.24h) 25 mg PO DAILY [facility] Montelukast Sodium (Montelukast Sodium 10 Mg Tablet) 10 mg PO BEDTIME [facility] Last Admin: 10/21/22 20:14 Dose: 10 mg Documented By: DL Multivitamins/Vitamin C (Multivitamin Tablet) 1 tab PO DAILY [facility] Last Admin: 10/22/22 08:02 Dose: 1 tab Documented By: JUAN MANUEL Non-Formulary Medication (Bupropion Hcl) 200 mg PO DAILY [facility] Omeprazole (Omeprazole 20 Mg Capsule.Dr) 20 mg PO DAILY [facility] Last Admin: 10/22/22 08:02 Dose: 20 mg Documented By: JUAN MANUEL Ondansetron HCl (Ondansetron Hcl 4 Mg/2 Ml Vial) 4 mg IVPUSH Q8H PRN PRN Reason: Nausea and Vomiting Pharmacy Consult (Consult Rx Perform Med Rec) 1 each MISCELLANE ONCE PRN PRN Reason: Consult order Potassium Chloride (Potassium Chloride Packet 20 Meq Packet) 40 meq PO DAILY [facility] Last Admin: 10/22/22 08:03 Dose: 40 meq Documented By: JUAN MANUEL Psyllium Hydrophilic Mucilloid (Psyllium Seed 3.4 Gm Powd.Pack) 3.4 gm PO DAILY [facility] Last Admin: 10/22/22 08:03 Dose: 3.4 gm Documented By: JUAN MANUEL Senna/Docusate Sodium (Sennosides/Docusate Sodium Tablet) 1 tab PO BID [facility] Last Admin: 10/22/22 08:02 Dose: 1 tab Documented By: JUAN MANUEL Sodium Chloride (0.9 % Sodium Chloride Flush 3 Ml Syringe) 3 ml IVFLUSH QSHIFT [facility] Last Admin: 10/22/22 08:04 Dose: 3 ml Documented By: JUAN MANUEL Venlafaxine HCl (Venlafaxine Hcl Er 75 Mg Cap.Er.24h) 75 mg PO DAILY [facility] Last Admin: 10/22/22 08:02 Dose: 75 mg Documented By: JUAN MANUEL Labs 10/22/22 06:31 10/22/22 06:31 Labs: Laboratory Results - last 24 hr 10/21/22 10/21/22 10/21/22 14:14 14:14 14:14 MCV 105.1 H MCH 33.9 H MCHC 32.3 RDW 14.9 Plt Count 204 MPV 10.8 Immature Gran % (Auto) 0.2 Neut % (Auto) 68.4 Lymph % (Auto) 19.2 L Carson % (Auto) 9.4 Eos % (Auto) 1.2 Baso % (Auto) 1.6 Lymph # (Auto) 0.9 L [place] # (Auto) 0.5 Eos # (Auto) 0.1 Baso # (Auto) 0.1 Abs Immat Gran (auto) 0.01 Absolute Neuts (auto) 3.4 Absolute Nucleated RBC 0.000 Nucleated RBC % (auto) 0.0 PT INR APTT Anion Gap 17 Estim Creat Clear Calc 27.4 Estimated GFR 35 Random Glucose 133 H Lactic Acid Lactic Acid F/U @ 2Hr Lactic Acid F/U @ 4Hr Calcium 9.2 Magnesium 2.2 Total Bilirubin 1.3 H Direct Bilirubin 0.4 AST 28 ALT 17 Alkaline Phosphatase 86 Troponin I High Sens B-Natriuretic Peptide 2735 H Total Protein 6.2 L Albumin 3.7 Vitamin B12 328 Folate 10.3 TSH 1.06 COVID-19 ([facility]) COVID-19 Clin Com 10/21/22 10/21/22 10/21/22 14:14 14:36 16:44 MCV MCH MCHC RDW Plt Count MPV Immature Gran % (Auto) Neut % (Auto) Lymph % (Auto) Carson % (Auto) Eos % (Auto) Baso % (Auto) Lymph # (Auto) Carson # (Auto) Eos # (Auto) Baso # (Auto) Abs Immat Gran (auto) Absolute Neuts (auto) Absolute Nucleated RBC Nucleated RBC % (auto) PT INR APTT Anion Gap Estim Creat Clear Calc Estimated GFR Random Glucose Lactic Acid Lactic Acid F/U @ 2Hr Lactic Acid F/U @ 4Hr Calcium Magnesium Total Bilirubin Direct Bilirubin AST ALT Alkaline Phosphatase Troponin I High Sens 52.3 H* 50.8 H* B-Natriuretic Peptide Total Protein Albumin Vitamin B12 Folate TSH COVID-19 (THOMAS) Negative COVID-19 [employer] Com See Note 10/21/22 10/21/22 10/21/22 16:45 18:34 19:12 MCV MCH MCHC RDW Plt Count MPV Immature Gran % (Auto) Neut % (Auto) Lymph % (Auto) [place] % (Auto) Eos % (Auto) Baso % (Auto) Lymph # (Auto) Carson # (Auto) Eos # (Auto) Baso # (Auto) Abs Immat Gran (auto) Absolute Neuts (auto) Absolute Nucleated RBC Nucleated RBC % (auto) PT 12.9 INR 1.1 APTT 33.9 Anion Gap Estim Creat Clear Calc Estimated GFR Random Glucose Lactic Acid 2.1 H* Lactic Acid F/U @ 2Hr 2.2 H* Lactic Acid F/U @ 4Hr Calcium Magnesium Total Bilirubin Direct Bilirubin AST ALT Alkaline Phosphatase Troponin I High Sens B-Natriuretic Peptide Total Protein Albumin Vitamin B12 Folate TSH COVID-19 ([facility]OMAS) COVID-Appear 10/21/22 10/22/22 10/22/22 21:49 06:31 06:31 MCV 103.2 H MCH 33.7 H MCHC 32.7 RDW 14.9 Plt Count 163 MPV 10.7 Immature Gran % (Auto) 0.2 Neut % (Auto) 64.1 Lymph % (Auto) 19.5 L [place] % (Auto) 11.8 H Eos % (Auto) 3.2 Baso % (Auto) 1.2 Lymph # (Auto) 0.8 L [place] # (Auto) 0.5 Eos # (Auto) 0.1 Baso # (Auto) 0.1 Abs Immat Gran (auto) 0.01 Absolute Neuts (auto) 2.8 Absolute Nucleated RBC 0.000 Nucleated RBC % (auto) 0.0 PT INR APTT Anion Gap 15 Estim Creat Clear Calc 29.4 Estimated GFR 38 Random Glucose 101 Lactic Acid Lactic Acid F/U @ 2Hr Lactic Acid F/U @ 4Hr 1.8 Calcium 8.7 Magnesium Total Bilirubin Direct Bilirubin AST ALT Alkaline Phosphatase Troponin I High Sens B-Natriuretic Peptide Total Protein Albumin Vitamin B12 Folate TSH COVID-19 ([facility]OMAS) COVID-19 Clin Com Assessment and Plan (1) New onset a-fib: Status: Acute Plan 77F PMH CKD stage III, hypertension, osteoporosis, CAD s/p CABG x4 2006, hyperlipidemia, depression, and mild intermittent asthma presented with sob and le edema, admitted for new onset AFib w/ RVR and acute CHF exacerbation. New onset Atrial Fibrillation with RVR now controlled HR Continue cardedilol 25mg BID Echo therapeutic Lovenox 60 mg b.i.d. cardiology acute unspecified CHF exacerbation lasix 40mg IV daily Echo pending Airspace opacities on chest CT doubt bactereial pna, will dc abx, monitor CAD- no anginal CP Continue plavix, BB. Not on statin HTN coreg, clonidine, losartan Depression effexor Mild intermittent asthma- no acute exacebration albuterol prn DVT prophylaxis- therapeutic Lovenox Full code reason for continued hospitalization:diuresing Time Spent With Patient Time: Total time managing care of this patient today ____ minutes. Quality Stroke Does the patient have a stroke diagnosis?: No VTE Prior VTE?: No VTE Risk Level:: Medical - moderate - high VTE Device Contraindication: Treatment Not Indicated VTE Drug Contraindication: N/A - Med Ordered
[2022-10-22] MEDS: Mirabegron 25 MG TAB.ER.24H PO (09:43)
[2022-10-22 11:16] VITALS: BMI 24.9
[2022-10-22 11:36] VITALS: BP 100/55; PULSE 75; RESP 16; TEMP 36.4; O2SAT 94
--- NOTE | 2022-10-22 14:46 | P.CONCA_ITS ---
History of Present Illness History of Present Illness Date of Service: 10/22/22 Requesting physician: Robson Aguila Chief complaint: new onset afib rvr, chr exacerbation Narrative: 77-year-old female who has background history of coronary artery bypass surgery in 2005 at [facility]. She said she had quadruple bypass at that time. She is now presenting with 2-3 weeks of lower extremity edema and shortness of breath. No orthopnea PND. She has noticed exertional shortness of breath. No chest discomfort per se. She was noticed to be in AFib with RVR. She has peripheral edema. She has CT chest which shows interstitial changes and I think these are likely due to congestive heart failure. No bleeding concerns. She has been started on diuretics and is feeling better. She was started on Lovenox for anticoagulation for atrial fibrillation. [facility] Past Medical History Medical History (Updated 10/21/22 @ 16:00 by Aurelia Mcdonough MD) Adjustment disorder Allergic rhinitis Anemia Asthma Atherosclerotic heart disease of [place] coronary artery with other forms of angina pectoris Chronic kidney disease Heart failure HTN (hypertension) Impaired fasting glucose Migraine Mixed hyperlipidemia Osteoporosis Traumatic brain injury Vitamin D deficiency Surgical History Surgical History (Updated 10/21/22 @ 16:50 by ESSENCE Guevara) H/O four vessel coronary artery bypass graft Social History Social History Household Members: None Housing: House Do you presently have visiting nurse or other home services: Yes ([employer] M-W-F 2 hrs. 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 Allergies Allergy/AdvReac Type Severity Reaction Status Date / Time iodine Allergy Unknown Unknown Verified 10/21/22 13:40 amlodipine [From NORVASC] AdvReac Mild FATIGUE Verified 10/21/22 13:40 jovi inhibitors Allergy Unknown Unknown Uncoded 10/21/22 13:40 bees Allergy Unknown Unknown Uncoded 10/21/22 13:40 cardiac med not sure of the Allergy Unknown Unknown Uncoded 10/21/22 13:40 na telfa Allergy Unknown Unknown Uncoded 10/21/22 13:40 Active Medications: Current Medications Acetaminophen (Acetaminophen 325 Mg Tablet) 650 mg PO Q6H PRN PRN Reason: Pain, Mild (Pain Scale 1-3) Albuterol Sulfate (Albuterol Sulfate 90 Mcg 8 Gm Inhaler) 2 puff INHALE RQ4H PRN PRN Reason: Shortness of Breath/Wheezing Artificial Tears (Artificial Tears 15 Ml Drops) 1 drop EYE-BOTH QID PRN PRN Reason: Dry Eye(S) Atorvastatin Calcium (Atorvastatin Calcium 80 Mg Tablet) 80 mg PO DAILY [facility] Last Admin: 10/22/22 08:02 Dose: 80 mg Carvedilol (Carvedilol 25 Mg Tablet) 25 mg PO BID [facility]; Protocol Last Admin: 10/22/22 08:03 Dose: 25 mg Clonidine (Clonidine 0.3 Mg Patch.Tdwk) 0.3 mg TRANSDERMA Q7D [facility]; Protocol Last Admin: 10/21/22 22:42 Dose: 0.3 mg Clopidogrel Bisulfate (Clopidogrel Bisulfate 75 Mg Tablet) 75 mg PO DAILY [facility] Last Admin: 10/22/22 08:02 Dose: 75 mg Enoxaparin Sodium (Enoxaparin Sodium 40 Mg/0.4 Ml Syringe) 60 mg SUBCUT Q12H [facility] Last Admin: 10/22/22 04:38 Dose: 60 mg Ferrous Sulfate (Ferrous Sulfate 324 Mg Tablet.Dr) 324 mg PO DAILY [facility] Last Admin: 10/22/22 08:03 Dose: 324 mg Furosemide (Furosemide 40 Mg/4 Ml Vial) 40 mg IVPUSH DAILY [facility]; Protocol Last Admin: 10/22/22 08:03 Dose: 40 mg Furosemide (Furosemide 40 Mg Tablet) 40 mg PO DAILY [facility]; Protocol Last Admin: 10/22/22 08:02 Dose: 40 mg Losartan Potassium (Losartan Potassium 25 Mg Tablet) 25 mg PO DAILY [facility]; Protocol Last Admin: 10/22/22 08:02 Dose: 25 mg Mirabegron (Mirabegron 25 Mg Tab.Er.24h) 25 mg PO DAILY [facility] Last Admin: 10/22/22 09:43 Dose: 25 mg Montelukast Sodium (Montelukast Sodium 10 Mg Tablet) 10 mg PO BEDTIME [facility] Last Admin: 10/21/22 20:14 Dose: 10 mg Multivitamins/Vitamin C (Multivitamin Tablet) 1 tab PO DAILY [facility] Last Admin: 10/22/22 08:02 Dose: 1 tab Non-Formulary Medication (Bupropion Hcl) 200 mg PO DAILY [facility] Omeprazole (Omeprazole 20 Mg Capsule.Dr) 20 mg PO DAILY [facility] Last Admin: 10/22/22 08:02 Dose: 20 mg Ondansetron HCl (Ondansetron Hcl 4 Mg/2 Ml Vial) 4 mg IVPUSH Q8H PRN PRN Reason: Nausea and Vomiting Pharmacy Consult (Consult Rx Perform Med Rec) 1 each MISCELLANE ONCE PRN PRN Reason: Consult order Potassium Chloride (Potassium Chloride Packet 20 Meq Packet) 40 meq PO DAILY [facility] Last Admin: 10/22/22 08:03 Dose: 40 meq Psyllium Hydrophilic Mucilloid (Psyllium Seed 3.4 Gm Powd.Pack) 3.4 gm PO DAILY [facility] Last Admin: 10/22/22 08:03 Dose: 3.4 gm Senna/Docusate Sodium (Sennosides/Docusate Sodium Tablet) 1 tab PO BID [facility] Last Admin: 10/22/22 08:02 Dose: 1 tab Sodium Chloride (0.9 % Sodium Chloride Flush 3 Ml Syringe) 3 ml IVFLUSH QSHIFT [facility] Last Admin: 10/22/22 08:04 Dose: 3 ml Venlafaxine HCl (Venlafaxine Hcl Er 75 Mg Cap.Er.24h) 75 mg PO DAILY [facility] Last Admin: 10/22/22 08:02 Dose: 75 mg Home Medications Medication Instructions Recorded Confirmed Last Taken Type albuterol sulfate 90 mcg/actuation 2 puff inhalation BID PRN Cough 10/21/22 10/21/22 Unknown History aerosol inhaler calcium carbonate 200 mg calcium 400 mg PO BID 10/21/22 10/21/22 Unknown History (500 mg) chewable tablet (Antacid (calcium carbonate)) carboxymethylcellulose sodium 0.5 1 drp ophthalmic (eye) QID PRN Dry 10/21/22 10/21/22 Unknown History % eye drops in a dropperette Eye(S) clonidine 0.3 mg/24 hr weekly 1 patch transdermal QWEEK 10/21/22 10/21/22 Unknown History transdermal patch ferrous sulfate 325 mg (65 mg 325 mg PO DAILY 10/21/22 10/21/22 Unknown History iron) tablet furosemide 20 mg tablet 40 mg PO DAILY 10/21/22 10/21/22 Unknown History losartan 25 mg tablet 25 mg PO DAILY 10/21/22 10/21/22 Unknown History mirabegron 25 mg tablet,extended 25 mg PO DAILY 10/21/22 10/21/22 Unknown History release 24 hr montelukast 10 mg tablet 10 mg PO BEDTIME 10/21/22 10/21/22 Unknown History multivitamin 1 tab PO DAILY 10/21/22 10/21/22 Unknown History potassium chloride 20 mEq oral 40 meq PO DAILY 10/21/22 10/21/22 Unknown History packet psyllium 2 packet PO DAILY 10/21/22 10/21/22 Unknown History rosuvastatin 40 mg tablet 40 mg PO DAILY 10/21/22 10/21/22 Unknown History sennosides 8.6 mg-docusate sodium 1 tab-cap PO BID 10/21/22 10/21/22 Unknown History 50 mg tablet (Senna Plus) Physical Exam Vital Signs: Vital Signs: Last Vital Signs Temp 97.6 F 10/22/22 11:36 Pulse 75 10/22/22 11:36 Resp 16 10/22/22 11:36 BP 100/55 L 10/22/22 11:36 Pulse Ox 94 10/22/22 11:36 O2 Del Method Room Air 10/22/22 11:36 BMI result Body Mass Index 24.9 GENERAL APPEARANCE: in no acute distress, pleasant. NECK: no carotid bruit, positive jugular venous distention. SKIN: no suspicious lesions, warm and dry. HEART: no murmurs, irregular rate and rhythm. LUNGS: clear to auscultation bilaterally. ABDOMEN: soft, nontender. EXTREMITIES: 1 to 2+ edema up to knees. PERIPHERAL PULSES: equal. NEUROLOGIC: No gross deficits, AAO X 3 Objective Labs and Meds 10/22/22 06:31 10/22/22 06:31 Lab results: Laboratory Results - last 24 hr 10/21/22 10/21/22 10/21/22 14:14 14:14 14:14 WBC RBC Hgb Hct MCV MCH MCHC RDW Plt Count MPV Immature Gran % (Auto) Neut % (Auto) Lymph % (Auto) [place] % (Auto) Eos % (Auto) Baso % (Auto) Lymph # (Auto) [place] # (Auto) Eos # (Auto) Baso # (Auto) Abs Immat Gran (auto) Absolute Neuts (auto) Absolute Nucleated RBC Nucleated RBC % (auto) PT INR APTT Sodium Potassium Chloride Carbon Dioxide Anion Gap BUN Creatinine Estim Creat Clear Calc Estimated GFR Random Glucose Lactic Acid Lactic Acid F/U @ 2Hr Lactic Acid F/U @ 4Hr Calcium Troponin I High Sens 52.3 H* B-Natriuretic Peptide 2735 H Vitamin B12 328 Folate 10.3 TSH 1.06 COVID-19 ([facility]OM[facility]) COVID-19 [employer] 10/21/22 10/21/22 10/21/22 14:36 16:44 16:45 WBC RBC Hgb Hct MCV MCH MCHC RDW Plt Count MPV Immature Gran % (Auto) Neut % (Auto) Lymph % (Auto) [place] % (Auto) Eos % (Auto) Baso % (Auto) Lymph # (Auto) [place] # (Auto) Eos # (Auto) Baso # (Auto) Abs Immat Gran (auto) Absolute Neuts (auto) Absolute Nucleated RBC Nucleated RBC % (auto) PT INR APTT Sodium Potassium Chloride Carbon Dioxide Anion Gap BUN Creatinine Estim Creat Clear Calc Estimated GFR Random Glucose Lactic Acid 2.1 H* Lactic Acid F/U @ 2Hr Lactic Acid F/U @ 4Hr Calcium Troponin I High Sens 50.8 H* B-Natriuretic Peptide Vitamin B12 Folate TSH COVID-19 (THOMAS) Negative COVID-[facility] See Note 10/21/22 10/21/22 10/21/22 18:34 19:12 21:49 WBC RBC Hgb Hct MCV MCH MCHC RDW Plt Count MPV Immature Gran % (Auto) Neut % (Auto) Lymph % (Auto) [place] % (Auto) Eos % (Auto) Baso % (Auto) Lymph # (Auto) [place] # (Auto) Eos # (Auto) Baso # (Auto) Abs Immat Gran (auto) Absolute Neuts (auto) Absolute Nucleated RBC Nucleated RBC % (auto) PT 12.9 INR 1.1 APTT 33.9 Sodium Potassium Chloride Carbon Dioxide Anion Gap BUN Creatinine Estim Creat Clear Calc Estimated GFR Random Glucose Lactic Acid Lactic Acid F/U @ 2Hr 2.2 H* Lactic Acid F/U @ 4Hr 1.8 Calcium Troponin I High Sens B-Natriuretic Peptide Vitamin B12 Folate TSH COVID-19 (THOMAS) COVID-19 Clin Com 10/22/22 10/22/22 06:31 06:31 WBC 4.3 L RBC 3.47 L Hgb 11.7 L Hct 35.8 L MCV 103.2 H MCH 33.7 H MCHC 32.7 RDW 14.9 Plt Count 163 MPV 10.7 Immature Gran % (Auto) 0.2 Neut % (Auto) 64.1 Lymph % (Auto) 19.5 L [place] % (Auto) 11.8 H Eos % (Auto) 3.2 Baso % (Auto) 1.2 Lymph # (Auto) 0.8 L [place] # (Auto) 0.5 Eos # (Auto) 0.1 Baso # (Auto) 0.1 Abs Immat Gran (auto) 0.01 Absolute Neuts (auto) 2.8 Absolute Nucleated RBC 0.000 Nucleated RBC % (auto) 0.0 PT INR APTT Sodium 138 Potassium 2.9 L Chloride 102 Carbon Dioxide 24 Anion Gap 15 BUN 18 H Creatinine 1.35 Estim Creat Clear Calc 29.4 Estimated GFR 38 Random Glucose 101 Lactic Acid Lactic Acid F/U @ 2Hr Lactic Acid F/U @ 4Hr Calcium 8.7 Troponin I High Sens B-Natriuretic Peptide Vitamin B12 Folate TSH COVID-19 (THOMAS) COVID-19 Clin Com Imaging Radiologist's impression: Impressions Chest X-Ray 10/21/22 14:55 IMPRESSION: Left upper lobe infiltrate/atelectasis. Venous Duplex 10/21/22 15:48 IMPRESSION: No DVT demonstrated in the bilateral lower extremity. Chest CT 10/21/22 17:12 IMPRESSION: 1. Patchy alveolar and interstitial airspace opacity in the left lung. There are also a few scattered groundglass opacities in the right lung. 2. Small to moderate volume bilateral pleural effusions. 3. Cholelithiasis. 4. Status post median sternotomy. Fleischner guidelines were followed. Assessment and Plan (1) New onset a-fib: Status: Acute (2) CHF (congestive heart failure): Status: Acute Plan [age] year female background history of bypass surgery presenting with shortness of breath and lower extremity edema. Clinically she is in heart failure. She also has new diagnosis of atrial fibrillation. She has high chads Vasc score and will require anticoagulation long-term. I think atrial fib rillation can be the cause for heart failure episode at this point. I think she needs echocardiography to rule out any cardiomyopathy. Please avoid giving diltiazem to her. She is on carvedilol 25 mg twice a day and clonidine 0.3 mg skin patch. Clonidine has high potential for withdrawal and the pad should be changed every 7 days. Her blood pressure is currently soft. I think diuretics can be continued for now. Avoid the diltiazem. If she is in RVR that digoxin can be loaded. Monitor potassium closely while she is on digoxin and diuretics. Once she gets echocardiogram then will discuss whether we need to go ahead with JORDAN cardioversion currently or cardioversion as outpatient. Thank you for allowing me to participate in the care of your patient. Please feel free to contact me if you have any questions. Time Spent With Patient Time: Total time managing care of this patient today _30___ minutes. Procedures Date of Service Date of Service: 10/22/22
[2022-10-22 15:13] VITALS: BP 96/54; PULSE 78; RESP 17; TEMP 36.3; O2SAT 96
[2022-10-22 19:22] VITALS: BP 103/50; PULSE 74; RESP 17; TEMP 36.7; O2SAT 92
[2022-10-22] MEDS: Apixaban 5 MG TABLET PO (21:26)
[2022-10-22] MEDS: carvediloL 12.5 MG TABLET PO (21:26)
[2022-10-22] MEDS: Montelukast Sodium 10 MG TABLET PO (21:26)
[2022-10-22] MEDS: Artificial Tears 15 ML DROPS 1 DROP EYE-BOTH (21:31)
[2022-10-22 23:23] VITALS: BP 115/64; PULSE 68; RESP 18; TEMP 36.5; O2SAT 94
[2022-10-23] VITALS (7 sets, daily range): BP systolic 83–110; BP diastolic 53–82; PULSE 69–82; RESP 16–17; TEMP 35.7–36.7; O2SAT 93–98
[2022-10-23 07:25] LABS: Hematocrit 37.3 % (37.0-47.0); Hemoglobin 12.2 g/dl (12.0-16.0); Mean Corpuscular HGB Conc 32.7 g/dl (31.0-35.0); Mean Corpuscular Hemoglobin 34.3 pg (27.0-33.0); Mean Corpuscular Volume 104.8 fL (80.0-98.0); Mean Platelet Volume 10.7 fL (9.4-12.3); Platelet Count 180 X10*3/uL (160-400); Red Blood Count 3.56 X10*6/uL (4.20-5.50); Red Cell Distribution Width 15.1 % (11.0-16.0)
[2022-10-23 07:34] LABS: Anion Gap 15 (12-20); Blood Urea Nitrogen 15 mg/dL (9-16); Calcium 8.4 mg/dL (8.4-10.2); Carbon Dioxide 26 mmol/L (22-29); Chloride 102 mmol/L (96-108); Creatinine Clr Calc Pharmacy 29.7; Estimated Glomerular Filt Rate 38; Glucose Fasting 98 mg/dL (60-99); Sodium 140 mmol/L (135-145)
--- NOTE | 2022-10-23 10:20 | MHC.CM.PN ---
Per ROUNDS discussion, Patient may need a Cardioversion; Home/resume services is the goal and CM will continue to follow.
[2022-10-23] MEDS: Multivitamin TABLET 1 TAB PO (10:22)
[2022-10-23] MEDS: 0.9 % Sodium Chloride Flush 3 ML SYRINGE IVFLUSH ×3 (10:22→22:23)
[2022-10-23] MEDS: Mirabegron 25 MG TAB.ER.24H PO (10:22)
[2022-10-23] MEDS: Spironolactone 25 MG TABLET PO (10:22)
[2022-10-23] MEDS: carvediloL 12.5 MG TABLET PO (10:23)
[2022-10-23] MEDS: Atorvastatin Calcium 80 MG TABLET PO (10:23)
[2022-10-23] MEDS: Sennosides/Docusate Sodium TABLET 1 TAB PO ×2 (10:23→22:22)
[2022-10-23] MEDS: Apixaban 5 MG TABLET PO ×2 (10:23→22:21)
[2022-10-23] MEDS: Ferrous Sulfate 324 MG TABLET.DR PO (10:23)
[2022-10-23] MEDS: Clopidogrel Bisulfate 75 MG TABLET PO (10:23)
[2022-10-23] MEDS: Potassium Chloride Packet 20 MEQ PACKET 40 MEQ PO ×3 (10:23→14:23)
[2022-10-23] MEDS: Omeprazole 20 MG CAPSULE.DR PO (10:23)
[2022-10-23] MEDS: Venlafaxine HCl ER 75 MG CAP.ER.24H PO (10:23)
[2022-10-23] MEDS: Losartan Potassium 25 MG TABLET PO (10:23)
[2022-10-23] MEDS: Furosemide 40 MG/4 ML VIAL IVPUSH (10:25)
--- NOTE | 2022-10-23 11:23 | P.PNCA_ITS ---
Subjective Subjective Date of Service: 10/23/22 Interval history: Seen examined at bedside. Feeling better. On diuretics. Still volume overloaded. Heart rates well controlled. In atrial fibrillation. Physical Exam Vital Signs: Last Vital Signs Temp 97.6 F 10/23/22 08:00 Pulse 69 10/23/22 08:00 Resp 17 10/23/22 08:00 BP 110/82 10/23/22 08:00 Pulse Ox 97 10/23/22 08:00 O2 Del Method Room Air 10/23/22 08:00 BMI result Body Mass Index 24.9 GENERAL APPEARANCE: in no acute distress, pleasant. NECK: no carotid bruit, positive jugular venous distention. SKIN: no suspicious lesions, warm and dry. HEART: no murmurs, irregular rate and rhythm. LUNGS: clear to auscultation bilaterally. ABDOMEN: soft, nontender. EXTREMITIES: 1 to 2+ edema up to knees. PERIPHERAL PULSES: equal. NEUROLOGIC: No gross deficits, AAO X 3 Objective Labs and Meds 10/23/22 06:53 10/23/22 06:53 Lab results: Laboratory Results - last 24 hr 10/23/22 10/23/22 06:53 06:53 WBC 4.0 L RBC 3.56 L Hgb 12.2 Hct 37.3 MCV 104.8 H MCH 34.3 H MCHC 32.7 RDW 15.1 Plt Count 180 MPV 10.7 Absolute Nucleated RBC 0.000 Nucleated RBC % (auto) 0.0 Sodium 140 Potassium 3.0 L Chloride 102 Carbon Dioxide 26 Anion Gap 15 BUN 15 Creatinine 1.34 Estim Creat Clear Calc 29.7 Estimated GFR 38 Fasting Glucose 98 Calcium 8.4 Progress Note: A&P Assessment and plan (1) CHF (congestive heart failure): Status: Acute (2) New onset a-fib: Status: Acute (3) Cardiomyopathy: Status: Acute Plan 77-year-old female presenting for shortness of breath and peripheral edema and congestive heart failure. She has biventricular dysfunction on echocardiography. She also has new diagnosis of atrial fibrillation and was tachycardic on admission. Given cardiomyopathy with decrease the carvedilol dose interestingly despite decreasing the beta-paradise every some diuresis her heart rates have improved significantly. It is possible that she was in a low- flow state and beta-blockers were worsening it. In any case she is doing better. She still is significantly volume overloaded. She has hypokalemia which is limiting us from being very aggressive with diuretics at this point. I think we should not give her metolazone and probably go up her Lasix to 40 mg 3 times a day. Monitor potassium and replete accordingly. Please check magnesium level also. I am adding spironolactone 25 mg once a day. As her potassium improves we will stop the supplements and continue the spironolactone daily. We discussed about cardioversion inpatient versus outpatient. Currently she is volume overloaded and in no shape to be cardioverted. As she improves we will rediscuss this. I think she does not need angiography right now. I think we do cardioversion 1st and then recessed the ejection fraction. If she does not improve then angiography should be performed as she has background of bypass surgery. She has no anginal symptoms. Decrease the clonidine to 0.2 mg so we have some blood pressure room for titration of guideline directed medical therapy. We will follow along with you. Thank you for allowing me to participate in the care of your patient. Please feel free to contact me if you have any questions. Time Spent With Patient Time: Total time managing care of this patient today ____ minutes. Progress Note: Quality Stroke Does the patient have a stroke diagnosis?: No Procedures Date of Service Date of Service: 10/23/22
--- NOTE | 2022-10-23 11:53 | P.PNIM_ITS ---
Subjective Subjective Date of Service: 10/23/22 Interval History: Seen and evaluated feels better overall swelling still in LE bilaterally No other overnight events Physical Exam Vital Signs: Vital Signs: Last Vital Signs Temp 96.9 F 10/23/22 11:27 Pulse 71 10/23/22 11:27 Resp 16 10/23/22 11:27 BP 97/55 L 10/23/22 11:27 Pulse Ox 95 10/23/22 11:27 O2 Del Method Room Air 10/23/22 11:27 BMI result Body Mass Index 24.9 Const: Other: Constitutional : Awake, interactive, not in distress Neck : Normal inspection, Supple Cardiovascular : RRR, elevated JVP, +2 bilateral lower extremity edema Respiratory : good bilateral air entry, no crackles, wheezes or rhonchi Gastrointestinal: soft, lax, Normal bowel sounds, Non tender Skin : Warm, Dry Neurological : Alert & oriented x3, No focal deficit Objective Data Active Medications Acetaminophen (Acetaminophen 325 Mg Tablet) 650 mg PO Q6H PRN PRN Reason: Pain, Mild (Pain Scale 1-3) Albuterol Sulfate (Albuterol Sulfate 90 Mcg 8 Gm Inhaler) 2 puff INHALE RQ4H PRN PRN Reason: Shortness of Breath/Wheezing Apixaban (Apixaban 5 Mg Tablet) 5 mg PO BID [facility] Last Admin: 10/23/22 10:23 Dose: 5 mg Documented By: CURT Artificial Tears (Artificial Tears 15 Ml Drops) 1 drop EYE-BOTH QID PRN PRN Reason: Dry Eye(S) Last Admin: 10/22/22 21:31 Dose: 1 drop Documented By: DONNA Atorvastatin Calcium (Atorvastatin Calcium 80 Mg Tablet) 80 mg PO DAILY [facility] Last Admin: 10/23/22 10:23 Dose: 80 mg Documented By: CURT Carvedilol (Carvedilol 12.5 Mg Tablet) 12.5 mg PO BID [facility]; Protocol Last Admin: 10/23/22 10:23 Dose: 12.5 mg Documented By: CURT Clonidine (Clonidine 0.3 Mg Patch.Tdwk) 0.3 mg TRANSDERMA Q7D [facility]; Protocol Last Admin: 10/21/22 22:42 Dose: 0.3 mg Documented By: DL Clopidogrel Bisulfate (Clopidogrel Bisulfate 75 Mg Tablet) 75 mg PO DAILY [facility] Last Admin: 10/23/22 10:23 Dose: 75 mg Documented By: CURT Ferrous Sulfate (Ferrous Sulfate 324 Mg Tablet.) 324 mg PO DAILY [facility] Last Admin: 10/23/22 10:23 Dose: 324 mg Documented By: CURT Furosemide (Furosemide 40 Mg/4 Ml Vial) 60 mg IVPUSH BID@0900,1800 [facility]; Protocol Losartan Potassium (Losartan Potassium 25 Mg Tablet) 25 mg PO DAILY [facility]; Protocol Last Admin: 10/23/22 10:23 Dose: 25 mg Documented By: CURT Mirabegron (Mirabegron 25 Mg Tab.Er.24h) 25 mg PO DAILY [facility] Last Admin: 10/23/22 10:22 Dose: 25 mg Documented By: CURT Montelukast Sodium (Montelukast Sodium 10 Mg Tablet) 10 mg PO BEDTIME [facility] Last Admin: 10/22/22 21:26 Dose: 10 mg Documented By: DONNA Multivitamins/Vitamin C (Multivitamin Tablet) 1 tab PO DAILY [facility] Last Admin: 10/23/22 10:22 Dose: 1 tab Documented By: CURT Non-Formulary Medication (Bupropion Hcl) 200 mg PO DAILY [facility] Omeprazole (Omeprazole 20 Mg Capsule.) 20 mg PO DAILY [facility] Last Admin: 10/23/22 10:23 Dose: 20 mg Documented By: CURT Ondansetron HCl (Ondansetron Hcl 4 Mg/2 Ml Vial) 4 mg IVPUSH Q8H PRN PRN Reason: Nausea and Vomiting Pharmacy Consult (Consult Rx Perform Med Rec) 1 each MISCELLANE ONCE PRN PRN Reason: Consult order Potassium Chloride (Potassium Chloride Packet 20 Meq Packet) 40 meq PO DAILY [facility] Last Admin: 10/23/22 10:23 Dose: 40 meq Documented By: CURT Potassium Chloride (Potassium Chloride Packet 20 Meq Packet) 40 meq PO Q2H [facility] Stop: 10/23/22 13:01 Psyllium Hydrophilic Mucilloid (Psyllium Seed 3.4 Gm Powd.Pack) 3.4 gm PO DAILY [facility] Last Admin: 10/23/22 10:24 Dose: 3.4 gm Documented By: CURT Senna/Docusate Sodium (Sennosides/Docusate Sodium Tablet) 1 tab PO BID [facility] Last Admin: 10/23/22 10:23 Dose: 1 tab Documented By: CURT Sodium Chloride (0.9 % Sodium Chloride Flush 3 Ml Syringe) 3 ml IVFLUSH QSHIFT [facility] Last Admin: 10/23/22 10:22 Dose: 3 ml Documented By: CURT Spironolactone (Spironolactone 25 Mg Tablet) 25 mg PO DAILY [facility]; Protocol Last Admin: 10/23/22 10:22 Dose: 25 mg Documented By: CURT Venlafaxine HCl (Venlafaxine Hcl Er 75 Mg Cap.Er.24h) 75 mg PO DAILY [facility] Last Admin: 10/23/22 10:23 Dose: 75 mg Documented By: CURT Labs 10/23/22 06:53 10/23/22 06:53 Labs: Laboratory Results - last 24 hr 10/23/22 10/23/22 06:53 06:53 MCV 104.8 H MCH 34.3 H MCHC 32.7 RDW 15.1 Plt Count 180 MPV 10.7 Absolute Nucleated RBC 0.000 Nucleated RBC % (auto) 0.0 Anion Gap 15 Estim Creat Clear Calc 29.7 Estimated GFR 38 Fasting Glucose 98 Calcium 8.4 Microbiology Microbiology Results: Microbiology 10/21/22 16:45 Blood Culture - Preliminary Blood - Venous No growth after 24 hours. 10/21/22 16:45 Blood Culture - Preliminary Blood - Venous No growth after 24 hours. Assessment and Plan (1) New onset a-fib: Status: Acute (2) CHF (congestive heart failure): Status: Acute (3) Bilateral edema of lower extremity: Status: Acute Plan 77F PMH CKD stage III, hypertension, osteoporosis, CAD s/p CABG x4 2006, hyperlipidemia, depression, and mild intermittent asthma presented with sob and le edema, admitted for new onset AFib w/ RVR and acute CHF exacerbation. New onset Atrial Fibrillation with RVR now controlled HR decrease cardedilol 12.5mg BID Echo started Eliquis cardiology following, consider cardioversion acute unspecified CHF exacerbation lasix 60mg IV bid Echo showing low EF I\O Airspace opacities on chest CT doubt bactereial pna, will dc abx, monitor CAD no anginal CP Continue plavix, BB. Not on statin HTN coreg, Decrease clonidine to 0.2 hold losartan while on lasix Depression effexor Mild intermittent asthma- no acute exacebration albuterol prn DVT prophylaxis- therapeutic Lovenox Full code reason for continued hospitalization:diuresing Time Spent With Patient Time: Total time managing care of this patient today ____ minutes. Quality Stroke Does the patient have a stroke diagnosis?: No VTE Prior VTE?: No VTE Risk Level:: Medical - moderate - high VTE Device Contraindication: Treatment Not Indicated VTE Drug Contraindication: N/A - Med Ordered
[2022-10-23] MEDS: Montelukast Sodium 10 MG TABLET PO (22:22)
[2022-10-23] MEDS: traZODone HCL 50 MG TABLET PO (22:35)
[2022-10-24] VITALS (8 sets, daily range): BP systolic 82–104; BP diastolic 46–76; PULSE 65–78; RESP 16–20; TEMP 36.3–37; O2SAT 94–99
--- NOTE | 2022-10-24 01:55 | PC.NURSE ---
Pt unable to sleep and requested some to help. Dr. Hernandez ordered trazodone to good effect. Will continue to monitor.
[2022-10-24 08:15] LABS: Anion Gap 13 (12-20); Blood Urea Nitrogen 17 mg/dL (9-16); Calcium 8.5 mg/dL (8.4-10.2); Carbon Dioxide 25 mmol/L (22-29); Chloride 105 mmol/L (96-108); Creatinine Clr Calc Pharmacy 29.2; Estimated Glomerular Filt Rate 38; Glucose Random 95 mg/dL (60-115); Sodium 139 mmol/L (135-145)
[2022-10-24 08:47] LABS: B Type Natriuretic Peptide 1319 pg/mL (<100)
[2022-10-24] MEDS: Omeprazole 20 MG CAPSULE.DR PO (10:14)
[2022-10-24] MEDS: Mirabegron 25 MG TAB.ER.24H PO (10:14)
[2022-10-24] MEDS: Sennosides/Docusate Sodium TABLET 1 TAB PO ×2 (10:14→19:39)
[2022-10-24] MEDS: Atorvastatin Calcium 80 MG TABLET PO (10:15)
[2022-10-24] MEDS: Venlafaxine HCl ER 75 MG CAP.ER.24H PO (10:15)
[2022-10-24] MEDS: Multivitamin TABLET 1 TAB PO (10:15)
[2022-10-24] MEDS: Apixaban 5 MG TABLET PO ×2 (10:15→19:39)
[2022-10-24] MEDS: 0.9 % Sodium Chloride Flush 3 ML SYRINGE IVFLUSH (10:16)
[2022-10-24] MEDS: Furosemide 40 MG/4 ML VIAL 60 MG IVPUSH (10:16)
[2022-10-24] MEDS: Clopidogrel Bisulfate 75 MG TABLET PO (10:16)
[2022-10-24] MEDS: Ferrous Sulfate 324 MG TABLET.DR PO (10:16)
[2022-10-24] MEDS: Potassium Chloride Packet 20 MEQ PACKET 40 MEQ PO (10:17)
--- NOTE | 2022-10-24 12:34 | P.PNIM_ITS ---
Subjective Subjective Date of Service: 10/24/22 Interval History: Seen and evaluated feels better overall with decrease edema in LE BP running soft rate controlled No other overnight events Physical Exam Vital Signs: Vital Signs: Last Vital Signs Temp 97.8 F 10/24/22 08:00 Pulse 75 10/24/22 10:12 Resp 20 10/24/22 08:00 BP 84/56 L 10/24/22 12:06 Pulse Ox 99 10/24/22 08:00 O2 Del Method Room Air 10/24/22 08:00 BMI result Body Mass Index 24.9 Const: Other: Constitutional : Awake, interactive, not in distress Neck : Normal inspection, Supple Cardiovascular : irregular irregular, elevated JVP, +1 bilateral lower extremity edema Respiratory : good bilateral air entry, no crackles, wheezes or rhonchi Gastrointestinal: soft, lax, Normal bowel sounds, Non tender Skin : Warm, Dry Neurological : Alert & oriented x3, No focal deficit Objective Data Active Medications Acetaminophen (Acetaminophen 325 Mg Tablet) 650 mg PO Q6H PRN PRN Reason: Pain, Mild (Pain Scale 1-3) Albuterol Sulfate (Albuterol Sulfate 90 Mcg 8 Gm Inhaler) 2 puff INHALE RQ4H PRN PRN Reason: Shortness of Breath/Wheezing Apixaban (Apixaban 5 Mg Tablet) 5 mg PO BID [facility] Last Admin: 10/24/22 10:15 Dose: 5 mg Documented By: PRIMO Artificial Tears (Artificial Tears 15 Ml Drops) 1 drop EYE-BOTH QID PRN PRN Reason: Dry Eye(S) Last Admin: 10/22/22 21:31 Dose: 1 drop Documented By: DONNA Atorvastatin Calcium (Atorvastatin Calcium 80 Mg Tablet) 80 mg PO DAILY [facility] Last Admin: 10/24/22 10:15 Dose: 80 mg Documented By: PRIMO Carvedilol (Carvedilol 12.5 Mg Tablet) 12.5 mg PO BID [facility]; Protocol Last Admin: 10/24/22 11:54 Dose: Not Given Documented By: MUSA Non-Admin Reason: md beth aware Clonidine (Clonidine 0.2 Mg Patch.Tdwk) 0.2 mg TRANSDERMA Q7D [facility]; Protocol Last Admin: 10/23/22 14:23 Dose: Not Given Documented By: CURT Non-Admin Reason: HOLD PER HOSPITALIST Clopidogrel Bisulfate (Clopidogrel Bisulfate 75 Mg Tablet) 75 mg PO DAILY [facility] Last Admin: 10/24/22 10:16 Dose: 75 mg Documented By: PRIMO Ferrous Sulfate (Ferrous Sulfate 324 Mg Tablet.) 324 mg PO DAILY [facility] Last Admin: 10/24/22 10:16 Dose: 324 mg Documented By: PRIMO Furosemide (Furosemide 40 Mg/4 Ml Vial) 60 mg IVPUSH BID@0900,1800 [facility]; Protocol Last Admin: 10/24/22 10:16 Dose: 60 mg Documented By: PRIMO Losartan Potassium (Losartan Potassium 25 Mg Tablet) 25 mg PO DAILY [facility]; Protocol Last Admin: 10/23/22 10:23 Dose: 25 mg Documented By: CURT Mirabegron (Mirabegron 25 Mg Tab.Er.24h) 25 mg PO DAILY [facility] Last Admin: 10/24/22 10:14 Dose: 25 mg Documented By: PRIMO Montelukast Sodium (Montelukast Sodium 10 Mg Tablet) 10 mg PO BEDTIME [facility] Last Admin: 10/23/22 22:22 Dose: 10 mg Documented By: DONNA Multivitamins/Vitamin C (Multivitamin Tablet) 1 tab PO DAILY [facility] Last Admin: 10/24/22 10:15 Dose: 1 tab Documented By: PRIMO Non-Formulary Medication (Bupropion Hcl) 200 mg PO DAILY [facility] Omeprazole (Omeprazole 20 Mg Capsule.) 20 mg PO DAILY [facility] Last Admin: 10/24/22 10:14 Dose: 20 mg Documented By: PRIMO Ondansetron HCl (Ondansetron Hcl 4 Mg/2 Ml Vial) 4 mg IVPUSH Q8H PRN PRN Reason: Nausea and Vomiting Pharmacy Consult (Consult Rx Perform Med Rec) 1 each MISCELLANE ONCE PRN PRN Reason: Consult order Potassium Chloride (Potassium Chloride Packet 20 Meq Packet) 40 meq PO DAILY [facility] Last Admin: 10/24/22 10:17 Dose: 40 meq Documented By: PRIMO Psyllium Hydrophilic Mucilloid (Psyllium Seed 3.4 Gm Powd.Pack) 3.4 gm PO DAILY [facility] Last Admin: 10/24/22 10:17 Dose: Not Given Documented By: PRIMO Non-Admin Reason: Patient Refused Senna/Docusate Sodium (Sennosides/Docusate Sodium Tablet) 1 tab PO BID [facility] Last Admin: 10/24/22 10:14 Dose: 1 tab Documented By: PRIMO Sodium Chloride (0.9 % Sodium Chloride Flush 3 Ml Syringe) 3 ml IVFLUSH QSHIFT [facility] Last Admin: 10/24/22 10:16 Dose: 3 ml Documented By: PRIMO Spironolactone (Spironolactone 25 Mg Tablet) 25 mg PO DAILY [facility]; Protocol Last Admin: 10/24/22 11:54 Dose: Not Given Documented By: MUSA Non-Admin Reason: HELD PER Venlafaxine HCl (Venlafaxine Hcl Er 75 Mg Cap.Er.24h) 75 mg PO DAILY [facility] Last Admin: 10/24/22 10:15 Dose: 75 mg Documented By: PRIMO Labs 10/23/22 06:53 10/24/22 06:14 Labs: Laboratory Results - last 24 hr 10/24/22 10/24/22 06:14 06:14 Anion Gap 13 Estim Creat Clear Calc 29.2 Estimated GFR 38 Random Glucose 95 Calcium 8.5 B-Natriuretic Peptide 1319 H Microbiology Microbiology Results: Microbiology 10/21/22 16:45 Blood Culture - Preliminary Blood - Venous No growth after 48 hours. 10/21/22 16:45 Blood Culture - Preliminary Blood - Venous No growth after 48 hours. Assessment and Plan (1) Cardiomyopathy: Status: Acute (2) New onset a-fib: Status: Acute (3) CHF (congestive heart failure): Status: Acute Plan 77F PMH CKD stage III, hypertension, osteoporosis, CAD s/p CABG x4 2006, hyperlipidemia, depression, and mild intermittent asthma presented with sob and le edema, admitted for new onset AFib w/ RVR and acute CHF exacerbation. New onset Atrial Fibrillation with RVR now controlled HR decrease cardedilol 12.5mg BID, held for low BP Continue Eliquis cardiology following, consider cardioversion acute systolic CHF exacerbation decrease lasix 60mg IV daily Hold spironolactone Echo showing low EF I\O Airspace opacities on chest CT doubt bactereial pna, will dc abx, monitor CAD no anginal CP Continue plavix, BB. Not on statin HTN Hypotensive Hold coreg, and Decreased clonidine 0.2 hold losartan Depression effexor Mild intermittent asthma- no acute exacebration albuterol prn DVT prophylaxis- therapeutic Lovenox Full code reason for continued hospitalization:diuresing, hypotension Time Spent With Patient Time: Total time managing care of this patient today ____ minutes. Quality Stroke Does the patient have a stroke diagnosis?: No VTE Prior VTE?: No VTE Risk Level:: Medical - moderate - high VTE Device Contraindication: Treatment Not Indicated VTE Drug Contraindication: N/A - Med Ordered
--- NOTE | 2022-10-24 16:18 | PM.PNCARD ---
Subjective Subjective Date of Service: 10/24/22 Interval history: Seen examined at bedside. She had low blood pressures today and was complaining of shortness of breath Physical Exam Vital Signs: Last Vital Signs Temp 98.6 F 10/24/22 15:11 Pulse 78 10/24/22 15:11 Resp 18 10/24/22 15:11 BP 104/76 10/24/22 15:11 Pulse Ox 97 10/24/22 15:11 O2 Del Method Room Air 10/24/22 15:11 BMI result Body Mass Index 24.9 GENERAL APPEARANCE: in no acute distress, pleasant. NECK: no carotid bruit, positive jugular venous distention. SKIN: no suspicious lesions, warm and dry. HEART: no murmurs, irregular rate and rhythm. LUNGS: clear to auscultation bilaterally. ABDOMEN: soft, nontender. EXTREMITIES: 1 + edema up to knees. PERIPHERAL PULSES: equal. NEUROLOGIC: No gross deficits, AAO X 3 Objective Labs and Meds 10/23/22 06:53 10/24/22 06:14 Lab results: Laboratory Results - last 24 hr 10/24/22 10/24/22 06:14 06:14 Sodium 139 Potassium 4.0 D Chloride 105 Carbon Dioxide 25 Anion Gap 13 BUN 17 H Creatinine 1.36 Estim Creat Clear Calc 29.2 Estimated GFR 38 Random Glucose 95 Calcium 8.5 B-Natriuretic Peptide 1319 H Progress Note: A&P Assessment and plan (1) Cardiomyopathy: Status: Acute (2) New onset a-fib: Status: Acute Plan Pleasant 77-year-old female presenting with biventricular heart failure and atrial fibrillation. She was on diuretics and guideline directed medical therapy but her blood pressure was low. She also has been on clonidine patch at home. Her blood pressure medications including clonidine is currently on hold. We will monitor blood pressure closely and resume these medications. I think she is mildly overloaded and potentially can get 1 dose of diuretics today and potentially can be changed to oral diuretics from tomorrow 40 mg p.o. b.i.d.. I think spironolactone can be continued and supplemental potassium can be stopped. She is on Plavix and Eliquis at this point. I think will plan an outpatient cardioversion for her. Thank you for allowing me to participate in the care of your patient. Please feel free to contact me if you have any questions. Time Spent With Patient Time: Total time managing care of this patient today ____ minutes. Progress Note: Quality Stroke Does the patient have a stroke diagnosis?: No Procedures Date of Service Date of Service: 10/24/22
[2022-10-24] MEDS: Montelukast Sodium 10 MG TABLET PO (19:39)
[2022-10-24] MEDS: Acetaminophen 325 MG TABLET 650 MG PO (19:45)
[2022-10-24 22:10] LABS: Lactic Acid 1.4 mmol/L (0.5-2.0)
[2022-10-25 04:00] VITALS: BP 119/65; PULSE 76; RESP 18; TEMP 36.2; O2SAT 93
[2022-10-25 07:49] LABS: Anion Gap 13 (12-20); Blood Urea Nitrogen 18 mg/dL (9-16); Calcium 8.9 mg/dL (8.4-10.2); Carbon Dioxide 26 mmol/L (22-29); Chloride 103 mmol/L (96-108); Creatinine Clr Calc Pharmacy 31.3; Estimated Glomerular Filt Rate 41; Glucose Random 95 mg/dL (60-115); Potassium 3.8 mmol/L (3.3-5.1); Sodium 138 mmol/L (135-145)
[2022-10-25 08:00] VITALS: BP 114/60; PULSE 80; RESP 18; TEMP 36.5; O2SAT 97
[2022-10-25] MEDS: Potassium Chloride Packet 20 MEQ PACKET 40 MEQ PO (09:53)
[2022-10-25] MEDS: Clopidogrel Bisulfate 75 MG TABLET PO (09:54)
[2022-10-25] MEDS: Multivitamin TABLET 1 TAB PO (09:54)
[2022-10-25] MEDS: Atorvastatin Calcium 80 MG TABLET PO (09:55)
[2022-10-25] MEDS: Omeprazole 20 MG CAPSULE.DR PO (09:55)
[2022-10-25] MEDS: Spironolactone 25 MG TABLET PO (09:55)
[2022-10-25] MEDS: Sennosides/Docusate Sodium TABLET 1 TAB PO (09:55)
[2022-10-25] MEDS: Apixaban 5 MG TABLET PO ×2 (09:55→21:00)
[2022-10-25] MEDS: Mirabegron 25 MG TAB.ER.24H PO (09:55)
[2022-10-25] MEDS: Ferrous Sulfate 324 MG TABLET.DR PO (09:55)
[2022-10-25] MEDS: Venlafaxine HCl ER 75 MG CAP.ER.24H PO (09:55)
[2022-10-25] MEDS: Furosemide 40 MG/4 ML VIAL 60 MG IVPUSH (10:02)
--- NOTE | 2022-10-25 11:34 | HO.PM.IMPN ---
Subjective Subjective Date of Service: 10/25/22 Interval History: Seen and evaluated BP improved feels better overall with decrease edema in LE rate controlled No other overnight events Review of Systems Review of Systems: Yes all other systems are reviewed and are negative Physical Exam Vital Signs: Vital Signs: Last Vital Signs Temp 97.7 F 10/25/22 08:00 Pulse 80 10/25/22 08:00 Resp 18 10/25/22 08:00 BP 114/60 10/25/22 08:00 Pulse Ox 97 10/25/22 08:00 O2 Del Method Room Air 10/25/22 08:00 BMI result Body Mass Index 24.9 Const: Other: Constitutional : Awake, interactive, not in distress Neck : Normal inspection, Supple Cardiovascular : irregular irregular, elevated JVP, trace bilateral lower extremity edema Respiratory : good bilateral air entry, no crackles, wheezes or rhonchi Gastrointestinal: soft, lax, Normal bowel sounds, Non tender Skin : Warm, Dry Neurological : Alert & oriented x3, No focal deficit Objective Data Active Medications Acetaminophen (Acetaminophen 325 Mg Tablet) 650 mg PO Q6H PRN PRN Reason: Pain, Mild (Pain Scale 1-3) Last Admin: 10/24/22 19:45 Dose: 650 mg Documented By: GRACIE Albuterol Sulfate (Albuterol Sulfate 90 Mcg 8 Gm Inhaler) 2 puff INHALE RQ4H PRN PRN Reason: Shortness of Breath/Wheezing Apixaban (Apixaban 5 Mg Tablet) 5 mg PO BID [facility] Last Admin: 10/25/22 09:55 Dose: 5 mg Documented By: JOSIE Artificial Tears (Artificial Tears 15 Ml Drops) 1 drop EYE-BOTH QID PRN PRN Reason: Dry Eye(S) Last Admin: 10/22/22 21:31 Dose: 1 drop Documented By: DONNA Atorvastatin Calcium (Atorvastatin Calcium 80 Mg Tablet) 80 mg PO DAILY [facility] Last Admin: 10/25/22 09:55 Dose: 80 mg Documented By: JOSIE Carvedilol (Carvedilol 3.125 Mg Tablet) 6.25 mg PO BID [facility]; Protocol Clopidogrel Bisulfate (Clopidogrel Bisulfate 75 Mg Tablet) 75 mg PO DAILY [facility] Last Admin: 10/25/22 09:54 Dose: 75 mg Documented By: JOSIE Ferrous Sulfate (Ferrous Sulfate 324 Mg Tablet.) 324 mg PO DAILY [facility] Last Admin: 10/25/22 09:55 Dose: 324 mg Documented By: JOSIE Furosemide (Furosemide 40 Mg/4 Ml Vial) 60 mg IVPUSH DAILY [facility]; Protocol Last Admin: 10/25/22 10:02 Dose: 60 mg Documented By: JOSIE Losartan Potassium (Losartan Potassium 25 Mg Tablet) 25 mg PO DAILY [facility]; Protocol Last Admin: 10/23/22 10:23 Dose: 25 mg Documented By: RIOVICKIE Mirabegron (Mirabegron 25 Mg Tab.Er.24h) 25 mg PO DAILY [facility] Last Admin: 10/25/22 09:55 Dose: 25 mg Documented By: JOSIE Montelukast Sodium (Montelukast Sodium 10 Mg Tablet) 10 mg PO BEDTIME [facility] Last Admin: 10/24/22 19:39 Dose: 10 mg Documented By: VICTORINO-RIVLA Multivitamins/Vitamin C (Multivitamin Tablet) 1 tab PO DAILY [facility] Last Admin: 10/25/22 09:54 Dose: 1 tab Documented By: JOSIE Non-Formulary Medication (Bupropion Hcl) 200 mg PO DAILY [facility] Omeprazole (Omeprazole 20 Mg Capsule.) 20 mg PO DAILY [facility] Last Admin: 10/25/22 09:55 Dose: 20 mg Documented By: JOSIE Ondansetron HCl (Ondansetron Hcl 4 Mg/2 Ml Vial) 4 mg IVPUSH Q8H PRN PRN Reason: Nausea and Vomiting Pharmacy Consult (Consult Rx Perform Med Rec) 1 each MISCELLANE ONCE PRN PRN Reason: Consult order Potassium Chloride (Potassium Chloride Packet 20 Meq Packet) 40 meq PO DAILY [facility] Last Admin: 10/25/22 09:53 Dose: 40 meq Documented By: JOSIE Psyllium Hydrophilic Mucilloid (Psyllium Seed 3.4 Gm Powd.Pack) 3.4 gm PO DAILY [facility] Last Admin: 10/25/22 10:03 Dose: Not Given Documented By: JOSIE Non-Admin Reason: Patient Refused Senna/Docusate Sodium (Sennosides/Docusate Sodium Tablet) 1 tab PO BID [facility] Last Admin: 10/25/22 09:55 Dose: 1 tab Documented By: JOSIE Sodium Chloride (0.9 % Sodium Chloride Flush 3 Ml Syringe) 3 ml IVFLUSH QSHIFT [facility] Last Admin: 10/25/22 10:06 Dose: Not Given Documented By: JOSIE Non-Admin Reason: Previously Administered Spironolactone (Spironolactone 25 Mg Tablet) 25 mg PO DAILY [facility]; Protocol Last Admin: 10/25/22 09:55 Dose: 25 mg Documented By: JOSIE Venlafaxine HCl (Venlafaxine Hcl Er 75 Mg Cap.Er.24h) 75 mg PO DAILY [facility] Last Admin: 10/25/22 09:55 Dose: 75 mg Documented By: JOSIE Labs 10/23/22 06:53 10/25/22 06:50 Labs: Laboratory Results - last 24 hr 10/24/22 10/25/22 21:53 06:50 Anion Gap 13 Estim Creat Clear Calc 31.3 Estimated GFR 41 Random Glucose 95 Lactic Acid 1.4 Calcium 8.9 Assessment and Plan (1) Cardiomyopathy: Status: Acute (2) New onset a-fib: Status: Acute (3) Bilateral edema of lower extremity: Status: Acute (4) Hypotension: Status: Acute Plan 77F PMH CKD stage III, hypertension, osteoporosis, CAD s/p CABG x4 2006, hyperlipidemia, depression, and mild intermittent asthma presented with sob and le edema, admitted for new onset AFib w/ RVR and acute CHF exacerbation. New onset Atrial Fibrillation with RVR now controlled HR decrease carvedilol 6.25mg BID Continue Eliquis cardiology following acute systolic CHF exacerbation lasix 60mg IV daily, change to PO for tomorrow spironolactone Echo showing low EF I\O HTN Hypotensive low dose coreg, Decreased clonidine to 0.1 patch upon restarting it hold losartan Airspace opacities on chest CT doubt bactereial pna, dc abx CAD no anginal CP Continue plavix, BB. Not on statin Depression effexor Mild intermittent asthma- no acute exacebration albuterol prn DVT prophylaxis- therapeutic Lovenox Full code reason for continued hospitalization:diuresing, hypotension Time Spent With Patient Time: Total time managing care of this patient today ____ minutes. Quality Stroke Does the patient have a stroke diagnosis?: No VTE Prior VTE?: No VTE Risk Level:: Medical - moderate - high VTE Device Contraindication: Treatment Not Indicated VTE Drug Contraindication: N/A - Med Ordered
[2022-10-25 11:52] VITALS: BP 106/75; PULSE 76; RESP 18; TEMP 36.4; O2SAT 95
--- NOTE | 2022-10-25 15:20 | PM.PNCARD ---
Subjective Subjective Date of Service: 10/25/22 Principal diagnosis: New atrial fibrillation, systolic and diastolic heart failure Interval history: Seen at 12:15. Patient observed resting quietly in bed. She denies having chest discomfort at rest, no heart palpitations, no shortness of breath. Leg edema much improved. She is very upset over not being assisted out of bed and she in fact had to wet the bed. monitor worker showing atrial fibrillation, rate 70 -80s. Review of Systems Review of Systems As above Yes all other systems are reviewed and are negative Physical Exam Vital Signs: Last Vital Signs Temp 97.6 F 10/25/22 11:52 Pulse 76 10/25/22 11:52 Resp 18 10/25/22 11:52 BP 106/75 10/25/22 11:52 Pulse Ox 95 10/25/22 11:52 O2 Del Method Room Air 10/25/22 11:52 BMI result Body Mass Index 24.9 Const General: cooperative and no acute distress Orientation/consciousness: patient oriented x3 Resp Effort & Inspection: normal respiratory effort Auscultation: rales (Fine rales noted in lower lobes bilaterally), no rhonchi and no wheezes Cardio Jugular venous distension: JVD Rate: regular rate Rhythm: abnormal rhythm Heart sounds: S1 normal heart sound present, S2 normal heart sound present, no murmurs and no rubs Peripheral pulses: Peripheral pulses 2+ throughout GI Inspection: Yes normal to inspection Neuro General: patient oriented x3 Extrem Other: Decreasing leg edema, mildly pitting around ankles Psych Appearance: grossly normal Mental Status: mental status grossly normal Speech and movement: Normal speech and movement present Objective Labs and Meds 10/23/22 06:53 10/25/22 06:50 Lab results: Laboratory Results - last 24 hr 10/24/22 10/25/22 21:53 06:50 Sodium 138 Potassium 3.8 Chloride 103 Carbon Dioxide 26 Anion Gap 13 BUN 18 H Creatinine 1.27 Estim Creat Clear Calc 31.3 Estimated GFR 41 Random Glucose 95 Lactic Acid 1.4 Calcium 8.9 Progress Note: A&P Assessment and plan (1) New onset a-fib: Status: Acute Assessment and Plan: Initially presented with increasing lower extremity edema and shortness of breath. She was found to have new onset atrial fibrillation and findings consistent with congestive heart failure. Her AFib is being managed with heart rate control. An echocardiogram showed EF 25-30%, mild increase in the RV size and moderate to severe decrease in the RV systolic function, left atrium severely dilated, right atrium moderately dilated with [id number] TR. She is currently on carvedilol at 6.25 mg b.i.d.. monitor worker showing atrial fibrillation with rate 70s to 80s. She denies any heart palpitations or chest discomfort. She has been started on Eliquis for anticoagulation. Creatinine 1.27 today. Continue current management. Ongoing telemetry monitoring. (2) Cardiomyopathy: Status: Acute Assessment and Plan: New finding of cardiomyopathy with EF 25-30%. May be related to AFib with elevated heart rates however ischemia has not been ruled out. She does have cardiac risk factors of hypertension, hyperlipidemia, impaired fasting glucose, chronic kidney disease. Also known history of coronary artery bypass grafting, 4 vessel in 2005. She has no reports of chest discomfort. At present will continue on carvedilol and losartan for neurohormonal modulation. She is being treated with heart rate control for her AFib. Continue Plavix and atorvastatin. She is not on aspirin as she is now on Eliquis. She will need an eventual ischemic eval. We will follow (3) CHF (congestive heart failure): Status: Acute Assessment and Plan: As above, being treated for acute systolic and diastolic heart failure. Being diuresed with Lasix 60 mg IV daily. Her documented fluid balance remains positive. Her BNP has come down from 2735 initially down to 1319 yesterday. Her oxygen saturation is 97% on room air. She does have fine rales in her bases on examination. Continue IV Lasix. Strict I&O monitoring. Close monitoring of electrolytes and kidney function. Time Spent With Patient Time: Total time managing care of this patient today _24___ minutes. Chart review, documentation, interview and assessment Progress Note: Quality Stroke Does the patient have a stroke diagnosis?: No Procedures Date of Service Date of Service: 10/25/22
--- NOTE | 2022-10-25 15:28 | MHC.CM.PN ---
PER ROUNDS PT MAY BE DCD SAT
[2022-10-25 15:39] VITALS: BP 116/69; PULSE 75; RESP 14; TEMP 36.3; O2SAT 98
--- NOTE | 2022-10-25 15:51 | MHC.CM.PN ---
met with pt we discussed the servceis she has in place no dc date at this time
[2022-10-25] MEDS: 0.9 % Sodium Chloride Flush 3 ML SYRINGE IVFLUSH ×2 (16:40→21:00)
[2022-10-25 19:13] VITALS: BP 107/55; PULSE 85; RESP 13; TEMP 36.6; O2SAT 94
[2022-10-25] MEDS: Montelukast Sodium 10 MG TABLET PO (20:59)
[2022-10-25 23:27] VITALS: BP 119/62; PULSE 84; RESP 18; TEMP 37.1; O2SAT 98
[2022-10-26 04:00] VITALS: BP 131/68; PULSE 93; RESP 20; TEMP 37.1; O2SAT 97
[2022-10-26 07:55] VITALS: BP 122/80; PULSE 85; RESP 16; TEMP 36; O2SAT 95
--- NOTE | 2022-10-26 09:55 | MHC.CM.PN ---
PT MEDICALLY CLEARED FOR D/C HOME W/[facility]UMP OF [facility] [employer] [employer] [facility] AND [facility], PT WILL ARRANGE TRANSPORT.
--- NOTE | 2022-10-26 10:02 | P.DS_ITS ---
DS: Providers Provider Date of Service: 10/27/22 Date of admission: 10/21/22 16:34 Primary care physician: Cherelle Dhillon MD Consults: 10/21/22 16:36 Consult to Cardiology Routine Consulting Provider: [facility] Reason for consultation: new onset afib rvr, chf exacerbation DS: Diagnosis Discharge Diagnosis (1) New onset a-fib: Status: Acute (2) Cardiomyopathy: Status: Acute (3) CHF (congestive heart failure): Status: Acute (4) Hypotension: Status: Acute DS: Summary Hospital Course Hospital Course: Admission note HPI 77-year-old female with history of CKD stage III, hypertension, osteoporosis, CAD s/p CABG x4 2005, hyperlipidemia, depression, and mild intermittent asthma presented to the ED earlier today with her EXPRESSIVE ART THERAPIST for evaluation of bilateral lower extremity pitting edema that has been worsening over the last 4-5 days.? She is also reporting mild dyspnea on exertion but denies any orthopnea or PND.? She does have a known history of congestive heart failure and follows with Cardiology at the [facility] in [place]. Has been compliant with diuretics, though states dose was reduced to 20mg by her livestock buyer.? On arrival, vital stable except for tachycardia to 130, no hypotension.? EKG ordered showed atrial fibrillation with RVR and premature ventricular or aberrantly conducted complexes with rate of 138.? No ST or depressions.? Hematology studies unchanged from baseline.? Renal function baseline, electrolyte levels normal including m agnesium of 2.2.? Initial troponin 52.3, repeat pending.? BNP 2735.? CXR shows left upper lobe infiltrate versus atelectasis.? Patient does endorse chronic cough which is occasionally productive but has not changed from baseline.? Venous duplex of the bilateral lower extremities negative for DVT. Denies fevers, chills, abd pain, n/v/d, melena, hematochezia, lightheadedness, shortness of breath at rest, palpitations, or chest pain. In the ED, given 20 mg IV push diltiazem followed by 30 mg p.o. diltiazem and 40 mg IV push furosemide. Pt to be admitted for new onset AFib with RVR and CHF exacerbation. Hospital course The patient was admitted for evaluation of worsening dyspnea and increase lower extremities swelling. found to be in acute heart failure exacerbation and new onset atrial fibrillation. Atrial Fibrillation with RVR controlled with betablockers on admission. remained in Afib rhythm though. had to decrease her home dose Carvedilol to 3.125 mg bid for low BP readings based on cardiology recommendations. started on eliquis as possible side effects were discussed with her as an echo were done showing an evidence of low EF of 25-30%. Treated with IV lasix for acute systolic CHF exacerbation with good response as LE swelling resolved and she was able to ambulate on room air with no reported SOB or dyspnea. Evaluated by PT team who felt she is at her baseline. Spironolactone was added per cardiology. Noted to be Hypotensive which is likely related to the new CMP. Losartan discontinued, Coreg decreased to 3.125 bid, Clonidine patch discontinued but started on 0.1 clinidine bid to prevent possible rebound hypertension. will be monitored at home and followed by [facility] with a plan to see cardiology as outpatient. Continue lasix 40 mg daily Start Spironolactone 25 mg daily, discontinue the potassium supplement for now Start Eliquis 5 mg twice a day Decrease Carvedilol to 3.125 mg twice a day Discontinue Clonidine patches, start Clonidine tab twice a day repeat blood work next week To follow with cardiology as outpatient; Dr Lowery. Time Spent with Patient Time attestation: Total time managing care of this patient today ____ minutes. Discharge coordination time: Greater than 30 minutes Quality: Safe Use of Opioids Does Pt have an Active Cancer Diagnosis on the Problem List?: No Quality: Stroke Does the patient have a stroke diagnosis?: No Physical Exam Vital Signs: Vital Signs: Last Vital Signs Temp 96.8 F 10/26/22 07:55 Pulse 85 10/26/22 07:55 Resp 16 10/26/22 07:55 BP 122/80 10/26/22 07:55 Pulse Ox 95 10/26/22 07:55 O2 Del Method Room Air 10/26/22 07:55 BMI result Body Mass Index 24.9 Const: Other: Constitutional : Awake, interactive, not in distress Neck : Normal inspection, Supple Cardiovascular : irregular irregular, no JVP, no lower extremity edema Respiratory : good bilateral air entry, no crackles, wheezes or rhonchi Gastrointestinal: soft, lax, Normal bowel sounds, Non tender Skin : Warm, Dry Neurological : Alert & oriented x3, No focal deficit DS: Data Data Completed and Pending Labs on day of discharge: Preliminary micro results at discharge 10/21/22 16:45 Blood Culture - Preliminary Blood - Venous No growth after 48 hours. 10/21/22 16:45 Blood Culture - Preliminary Blood - Venous No growth after 48 hours. Imaging Chest x-ray: Radiologist's impression: ITS Impressions Chest X-Ray 10/21/22 14:55 IMPRESSION: Left upper lobe infiltrate/atelectasis. Venous Duplex 10/21/22 15:48 IMPRESSION: No DVT demonstrated in the bilateral lower extremity. Chest CT 10/21/22 17:12 IMPRESSION: 1. Patchy alveolar and interstitial airspace opacity in the left lung. There are also a few scattered groundglass opacities in the right lung. 2. Small to moderate volume bilateral pleural effusions. 3. Cholelithiasis. 4. Status post median sternotomy. Fleischner guidelines were followed. Discharge Plan Discharge Anticipated Discharge Date/Time: 10/26/22 09:43 Patient Disposition: Home Health Service Discharge Diagnosis: Atrial fibrillation of new onset Heart failure exacerbation Referrals: Jordon PATRICK [Outside] - 3-5 Days (SHELTER) Cherelle Dhillon MD [Primary Care Provider] - 1 Week Discharge Medications: New clonidine HCl 0.1 mg Tablet 0.1 mg PO BID Qty: 60 0RF Protocol: Hold for SBP< HOLD for SBP < : 90 spironolactone 25 mg Tablet 25 mg PO DAILY Qty: 30 0RF Protocol: Hold for SBP< HOLD for SBP < : 90 carvedilol 3.125 mg Tablet 3.125 mg PO BID Qty: 60 0RF Protocol: Hold for SBP/HR < HOLD for SBP < : 90 HOLD for HR < : 60 Eliquis 5 mg Tablet 5 mg PO BID Qty: 60 0RF Continued multivitamin Tablet 1 tab PO DAILY sennosides-docusate sodium [Senna Plus] 8.6-50 mg Tablet 1 tab-cap PO BID psyllium Packet 2 packet PO DAILY Rx Instructions: mix into at least 8 oz of water or juice before administering ferrous sulfate 325 mg (65 mg iron) Tablet 325 mg PO DAILY montelukast 10 mg Tablet 10 mg PO BEDTIME albuterol sulfate 90 mcg/actuation Hfa Aerosol Inhaler 2 puff INHALATION BID PRN (Reason: Cough) rosuvastatin 40 mg Tablet 40 mg PO DAILY mirabegron 25 mg Tablet Extended Release 24 Hr 25 mg PO DAILY calcium carbonate [Antacid (calcium carbonate)] 200 mg calcium (500 mg) tablet,chewable 400 mg PO BID carboxymethylcellulose sodium 0.5 % dropperette 1 drp ophthalmic (eye) QID PRN (Reason: Dry Eye(S)) clopidogrel 75 mg tablet 75 mg PO DAILY Qty: 90 0RF venlafaxine 75 mg capsule,extended release 24hr 75 mg PO DAILY Qty: 90 0RF pantoprazole 40 mg tablet,delayed release (DR/EC) 40 mg PO DAILY Qty: 90 0RF bupropion HCl 200 mg tablet sustained-release 12 hr 200 mg PO DAILY Qty: 90 0RF Changed furosemide 20 mg tablet 40 mg PO DAILY Qty: 60 0RF Held losartan 25 mg Tablet 25 mg PO DAILY Hold Instructions: Follow with Cardiology to decide if needed and when to start Discontinued clonidine 0.3 mg/24 hr Patch Weekly 1 patch TRANSDERMAL QWEEK potassium chloride 20 mEq packet 40 meq PO DAILY carvedilol 25 mg tablet 25 mg PO BID Qty: 180 0RF Rx Instructions: must administer with a meal/food Discharge Orders: Discharge Order (Routine); Ordered 10/26/22 Ordered By: Antonio Sanderson Diet: Low salt diet Activity on Discharge: As tolerated Stand Alone Forms: Patient Portal Discharge page Other Ambulatory Orders: Basic Metabolic Panel (Routine) Timeframe: 4 Days Facility: [facility] - Location: Laboratory Ordered By: Antonio Sanderson Care Plan Goals: Read below Health Concerns: Read below Plan of Treatment: Read below Assessment: You were admitted to the hospital with lower extremity swelling and weakness. fo und to be in new onset atrial fibrillation and heart failure exacerbation treated with IV lasix and heart failure medications. noted to drop your blood pressure which improved after adjusting your blood pressure medications as you were followed by cardiology team. Continue lasix 40 mg daily Start Spironolactone 25 mg daily, discontinue the potassium supplement for now Start Eliquis 5 mg twice a day Decrease Carvedilol to 3.125 mg twice a day Discontinue Clonidine patches, start Clonidine tab twice a day repeat blood work next week To follow with cardiology as outpatient; Dr Lowery. Discharge Date/Time: 10/26/22 16:16
--- NOTE | 2022-10-26 10:21 | W.MHC.F2F ---
Service Date Service Date: 10/26/22 Encounter Date of encounter: 10/26/22 Reasons for Services Signs and symptoms assessed: Heart failure new Afib Low BP Reason for residential: medication management, teach disease management and other (Monitor BP, fluid status, heart rate ) Homebound: Leaving the home is medically contraindicated at this time without the asist of a device and/or another person due th the listed conditions above and below. Reason homebound: other Certification: Based on the above findings, I certify that this patient is confined to the home and needs intermittent residential care, physical therapy and/or speech therapy, or continues to need occupational therapy. The patient is under my care, and I have initiated the establishment of the plan of care. The patient will be followed by a physician who will periodically review the plan of care. Time Spent With Patient Time: Total time managing care of this patient today ____ minutes.
[2022-10-26] MEDS: Potassium Chloride Packet 20 MEQ PACKET 40 MEQ PO (11:07)
[2022-10-26] MEDS: Sennosides/Docusate Sodium TABLET 1 TAB PO (11:08)
[2022-10-26] MEDS: Spironolactone 25 MG TABLET PO (11:08)
[2022-10-26] MEDS: Furosemide 40 MG TABLET PO (11:08)
[2022-10-26] MEDS: Mirabegron 25 MG TAB.ER.24H PO (11:08)
[2022-10-26] MEDS: Ferrous Sulfate 324 MG TABLET.DR PO (11:08)
[2022-10-26] MEDS: Clopidogrel Bisulfate 75 MG TABLET PO (11:08)
[2022-10-26] MEDS: cloNIDine HCL 0.1 MG TABLET PO (11:08)
[2022-10-26] MEDS: Atorvastatin Calcium 80 MG TABLET PO (11:08)
[2022-10-26] MEDS: Multivitamin TABLET 1 TAB PO (11:08)
[2022-10-26] MEDS: Omeprazole 20 MG CAPSULE.DR PO (11:08)
[2022-10-26] MEDS: Venlafaxine HCl ER 75 MG CAP.ER.24H PO (11:09)
[2022-10-26] MEDS: 0.9 % Sodium Chloride Flush 3 ML SYRINGE IVFLUSH (11:09)
[2022-10-26] MEDS: carvediloL 3.125 MG TABLET PO (11:09)
[2022-10-26] MEDS: Apixaban 5 MG TABLET PO (11:09)
[2022-10-26 11:53] VITALS: BP 110/75; PULSE 72; RESP 16; TEMP 36.9; O2SAT 98
--- NOTE | 2022-10-26 12:19 | PM.PNCARD ---
Subjective Subjective Date of Service: 10/26/22 Principal diagnosis: New atrial fibrillation, systolic and diastolic heart failure Interval history: Seen examined at bedside. Feeling better. Blood pressure continues to be low. Her clonidine was decreased to 0.1 mg patch. Physical Exam Vital Signs: Last Vital Signs Temp 98.4 F 10/26/22 11:53 Pulse 72 10/26/22 11:53 Resp 16 10/26/22 11:53 BP 110/75 10/26/22 11:53 Pulse Ox 98 10/26/22 11:53 O2 Del Method Room Air 10/26/22 11:53 BMI result Body Mass Index 24.9 GENERAL APPEARANCE: in no acute distress, pleasant. NECK: no carotid bruit, no significant jugular venous distention. SKIN: no suspicious lesions, warm and dry. HEART: no murmurs, irregular rate and rhythm. LUNGS: clear to auscultation bilaterally. ABDOMEN: soft, nontender. EXTREMITIES: Mild edema. PERIPHERAL PULSES: equal. NEUROLOGIC: No gross deficits, AAO X 3 Objective Labs and Meds 10/23/22 06:53 10/25/22 06:50 Progress Note: A&P Assessment and plan (1) Cardiomyopathy: Status: Acute (2) New onset a-fib: Status: Acute Plan Pleasant 77-year-old female who has new diagnosis of biventricular heart failure. She has background history of bypass surgery. She has new onset atrial fibrillation which is likely cause for the cardiomyopathy. She is rate controlled currently. Blood pressure has been low and she previously was on clonidine patch 0.3 mg. Clonidine and been decreased to 0.1 mg at this stage. Her losartan is on hold currently. She is on spironolactone 25 mg as well as carvedilol at 3.125 mg twice a day. If she tolerates these medications and I think potentially can return home with these medications along with apixaban for anticoagulation. Will plan cardioversion as outpatient. If the blood pressure improved as outpatient then will introduce losartan. Thank you for allowing me to participate in the care of your patient. Please feel free to contact me if you have any questions. Time Spent With Patient Time: Total time managing care of this patient today ____ minutes. Progress Note: Quality Stroke Does the patient have a stroke diagnosis?: No Procedures Date of Service Date of Service: 10/26/22
== END 2022-10-26 16:16 | disposition home health service (06) | DRG 291 ==
LOC: HO.ED 16:00 → HO.EDOVER 16:42 → HO.IMC 17:00
PROVIDERS: Internal Medicine; Physician Assistant; Admitting Provider Physician Assistant; Emergency Provider Emergency Medicine; PCP Family Medicine; Visit Provider Student in an Organized Health Care Education/Training Program
DX: I13.0 Hypertensive heart and chronic kidney disease with heart failure and stage 1 through stage 4 chronic kidney disease, or unspecified chronic kidney disease (principal); I50.21 Acute systolic (congestive) heart failure; N18.30 Chronic kidney disease, stage 3 unspecified; J45.20 Mild intermittent asthma, uncomplicated; I48.91 Unspecified atrial fibrillation; I25.10 Atherosclerotic heart disease of native coronary artery without angina pectoris; F32.A Depression, unspecified; I95.9 Hypotension, unspecified; Z95.1 Presence of aortocoronary bypass graft; I42.9 Cardiomyopathy, unspecified; E87.6 Hypokalemia; E78.2 Mixed hyperlipidemia; Z20.822 Contact with and (suspected) exposure to COVID-19; Z87.820 Personal history of traumatic brain injury; Z79.01 Long term (current) use of anticoagulants; Z79.899 Other long term (current) drug therapy
CPT/HCPCS: 36415; 71045; 71250; 80048; 80076; 82607; 82746; 83605; 83735; 83880; 84443; 84484; 85025; 85027; 85610; 85730; 87040; 87635; 93005; 93306; 93970; 97161; 99285; J0696; J1650; J1940

== ENCOUNTER 2022-10-30 16:32 | Outpatient (REF) | payer OTHER, SELFPAY ==
[2022-10-30 17:38] LABS: Anion Gap 15 (12-20); Blood Urea Nitrogen 23 mg/dL (9-16); Calcium 9.4 mg/dL (8.4-10.2); Carbon Dioxide 26 mmol/L (22-29); Chloride 100 mmol/L (96-108); Estimated Glomerular Filt Rate 39; Glucose Random 78 mg/dL (60-115); Potassium 4.4 mmol/L (3.3-5.1); Sodium 137 mmol/L (135-145)
== END 2022-10-30 16:33 | disposition home or self-care (01) ==
LOC: HO.HVNA 16:32
PROVIDERS: Visit Provider Student in an Organized Health Care Education/Training Program
DX: I50.9 Heart failure, unspecified (principal)
CPT/HCPCS: 36415; 80048

== ENCOUNTER → 2022-12-05 14:18 | Outpatient (BNVA) | payer OTHER, SELFPAY | PROVIDERS: PCP Family Medicine; Referring Provider Family Medicine; Visit Provider Internal Medicine Cardiovascular Disease | DX: I48.19 Other persistent atrial fibrillation (principal); I42.9 Cardiomyopathy, unspecified; Z79.01 Long term (current) use of anticoagulants | CPT/HCPCS: 93005; 99212 ==

== ENCOUNTER 2022-12-24 11:39 | Day surgery (SDC) | payer OTHER, SELFPAY ==
--- NOTE | 2022-12-23 12:12 | HO.ANESPROP2 ---
Documented by User: Ruthie Mcgregor NP 12/23/22 12:14 HPI - Anesthesia Eval Consult details Narrative: 77yo F for Cardioversion PMFSH Active Problems Active Problems: All Active Problems (Updated 12/05/22 @ 20:03 by Adam Lowery MD) Cardiomyopathy (Acute) Persistent atrial fibrillation (Acute) Fracture of proximal end of humerus (Acute) Past Medical History Medical History (Updated 12/05/22 @ 20:03 by Adam Lowery MD) Adjustment disorder Allergic rhinitis Anemia Asthma Atherosclerotic heart disease of [place] coronary artery with other forms of angina pectoris Cardiomyopathy CHF (congestive heart failure) Chronic kidney disease Heart failure HTN (hypertension) Impaired fasting glucose Migraine Mixed hyperlipidemia New onset a-fib Osteoporosis Traumatic brain injury Vitamin D deficiency Surgical History Surgical History H/O four vessel coronary artery bypass graft Social History Social History Household Members: None Housing: House Do you presently have visiting nurse or other home services: Yes ([employer] M-W-F 2 hrs. 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 Meds Allergies Allergy/AdvReac Type Severity Reaction Status Date / Time iodine Allergy Unknown Unknown Verified 12/05/22 14:36 amlodipine [From [facility]] AdvReac Mild FATIGUE Verified 12/05/22 14:36 jovi inhibitors Allergy Unknown Unknown Uncoded 12/05/22 14:36 bees Allergy Unknown Unknown Uncoded 12/05/22 14:36 cardiac med not sure of the Allergy Unknown Unknown Uncoded 12/05/22 14:36 na telfa Allergy Unknown Unknown Uncoded 12/05/22 14:36 Home Medications Medication Instructions Recorded Confirmed Last Taken Type albuterol sulfate 90 mcg/actuation 2 puff inhalation BID PRN Cough 10/21/22 12/24/22 Unknown History aerosol inhaler calcium carbonate 200 mg calcium 400 mg PO BID 10/21/22 12/24/22 Unknown History (500 mg) chewable tablet (Antacid (calcium carbonate)) carboxymethylcellulose sodium 0.5 1 drp ophthalmic (eye) QID PRN Dry 10/21/22 12/24/22 Unknown History % eye drops in a dropperette Eye(S) ferrous sulfate 325 mg (65 mg 325 mg PO DAILY 10/21/22 12/24/22 Unknown History iron) tablet mirabegron 25 mg tablet,extended 25 mg PO DAILY 10/21/22 12/24/22 12/24/22 History release 24 hr montelukast 10 mg tablet 10 mg PO BEDTIME 10/21/22 12/24/22 Unknown History multivitamin 1 tab PO DAILY 10/21/22 12/24/22 12/24/22 History psyllium 2 packet PO DAILY 10/21/22 12/24/22 Unknown History rosuvastatin 40 mg tablet 40 mg PO DAILY 10/21/22 12/24/22 Unknown History sennosides 8.6 mg-docusate sodium 1 tab-cap PO BID 10/21/22 12/24/22 Unknown History 50 mg tablet (Senna Plus) apixaban 2.5 mg tablet (Eliquis) 2.5 mg PO BID 12/05/22 12/24/22 12/24/22 History Exam Exam Date and Time: December 23, 2022 1212 Narrative Narrative: EKG 11/2022 Atrial fibrillation with rapid ventricular response 109 beats per minute, normal axis, nonspecific T-wave changes, septal infarct, QTC 492 milliseconds ECHO 10/2022 Conclusions: - Normal left ventricular cavity size.? There is normal left ? ? ventricular wall thickness.? The left ventricular systolic ? ? ? function is moderate to severely decreased.? The visually? estimated ejection fraction is between 25-30%. ? - Mildly increased right ventricular cavity size.? There is? ? ? moderate to severely decreased right ventricular systolic? function.? - LA is moderately to severely dilated.? The right atrium is ? ? moderately dilated.? - There is mild to moderate tricuspid valve regurgitation. ? ? ? Significantly elevated right atrial pressure.? There is no ? ? ? evidence of pulmonary hypertension. PA pressures are ? underestimated due to RV dysfunction.? Assessment and Plan Assessment Anesthesia Assessment: Chart Reviewed Documented by User: Sweetie Singh MD 12/24/22 13:16 PMFSH Past Medical History Medical History (Updated 12/05/22 @ 20:03 by Adam Lowery MD) Adjustment disorder Allergic rhinitis Anemia Asthma Atherosclerotic heart disease of [place] coronary artery with other forms of angina pectoris Cardiomyopathy CHF (congestive heart failure) Chronic kidney disease Heart failure HTN (hypertension) Impaired fasting glucose Migraine Mixed hyperlipidemia New onset a-fib Osteoporosis Traumatic brain injury Vitamin D deficiency Family History Family history of problems with anesthesia: No Surgical History Surgical History H/O four vessel coronary artery bypass graft Social History Social History Household Members: None Housing: House Do you presently have visiting nurse or other home services: Yes ([employer]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 Meds Allergies Allergy/AdvReac Type Severity Reaction Status Date / Time iodine Allergy Unknown Unknown Verified 12/05/22 14:36 amlodipine [From [facility]] AdvReac Mild FATIGUE Verified 12/05/22 14:36 jovi inhibitors Allergy Unknown Unknown Uncoded 12/05/22 14:36 bees Allergy Unknown Unknown Uncoded 12/05/22 14:36 cardiac med not sure of the Allergy Unknown Unknown Uncoded 12/05/22 14:36 na telfa Allergy Unknown Unknown Uncoded 12/05/22 14:36 Home Medications Medication Instructions Recorded Confirmed Last Taken Type albuterol sulfate 90 mcg/actuation 2 puff inhalation BID PRN Cough 10/21/22 12/24/22 Unknown History aerosol inhaler calcium carbonate 200 mg calcium 400 mg PO BID 10/21/22 12/24/22 Unknown History (500 mg) chewable tablet (Antacid (calcium carbonate)) carboxymethylcellulose sodium 0.5 1 drp ophthalmic (eye) QID PRN Dry 10/21/22 12/24/22 Unknown History % eye drops in a dropperette Eye(S) ferrous sulfate 325 mg (65 mg 325 mg PO DAILY 10/21/22 12/24/22 Unknown History iron) tablet mirabegron 25 mg tablet,extended 25 mg PO DAILY 10/21/22 12/24/22 12/24/22 History release 24 hr montelukast 10 mg tablet 10 mg PO BEDTIME 10/21/22 12/24/22 Unknown History multivitamin 1 tab PO DAILY 10/21/22 12/24/22 12/24/22 History psyllium 2 packet PO DAILY 10/21/22 12/24/22 Unknown History rosuvastatin 40 mg tablet 40 mg PO DAILY 10/21/22 12/24/22 Unknown History sennosides 8.6 mg-docusate sodium 1 tab-cap PO BID 10/21/22 12/24/22 Unknown History 50 mg tablet (Senna Plus) apixaban 2.5 mg tablet (Eliquis) 2.5 mg PO BID 12/05/22 12/24/22 12/24/22 History Exam Airway Mallampati Class: II TM Dist: >3cm Neck ROM: Full Heart: afib Lungs: cta Assessment and Plan Assessment Anesthesia Assessment: Anesthesia Plan Discussed Final Anesthetic Review Family History of Problems with Anesthesia: No NPO: Yes ASA Class: IV Final Preanesthetic Review: No Changes in Pt Med Stat, Meds/Allgs Chart Reviewed, Consent Obtained/Reviewed and Anes Risks/Benef Reviewed Patient Risk: Intermediate Procedure Risk: Low Anesthetic Plan Anesthetic Plan: MAC: Disposition: Standard PACU
[2022-12-24] VITALS (9 sets, daily range): BP systolic 99–125; BP diastolic 53–75; PULSE 46–89; RESP 16–19; TEMP 36.4–36.8; O2SAT 96–98; BMI 22.5
--- NOTE | 2022-12-24 | ECG_ITS ---
Test Reason : post op Blood Pressure : / mmHG Vent. Rate : 051 BPM Atrial Rate : 051 BPM P-R Int : 160 ms QRS Dur : 084 ms QT Int : 566 ms P-R-T Axes : 066 -16 263 degrees QTc Int : 521 ms Sinus bradycardia Left ventricular hypertrophy with repolarization abnormality ( R in aVL ) Prolonged QT Abnormal ECG When compared with ECG of 21-OCT-2022 13:50, Sinus rhythm has replaced Atrial fibrillation Vent. rate has decreased BY 87 BPM T wave inversion now evident in Inferior leads T wave inversion now evident in Anterior leads Referred By: Adam Lowery Electronically Signed By:Adam Lowery
[2022-12-24] MEDS: Lactated Ringers 1,000 ML 50 ML IVCONT (12:06)
--- NOTE | 2022-12-24 13:21 | MHC.SHP ---
Pre-Procedural Eval Section A Date of Service: 12/24/22 The patient is an INPATIENT: No The History & Physical has been completed within 30 days and I have reviewed it.: Yes Section B Chief Complaint: afib Allergies: Allergies Allergy/AdvReac Type Severity Reaction Status Date / Time iodine Allergy Unknown Unknown Verified 12/05/22 14:36 amlodipine [From NORVAS] AdvReac Mild FATIGUE Verified 12/05/22 14:36 jovi inhibitors Allergy Unknown Unknown Uncoded 12/05/22 14:36 bees Allergy Unknown Unknown Uncoded 12/05/22 14:36 cardiac med not sure of the Allergy Unknown Unknown Uncoded 12/05/22 14:36 na telfa Allergy Unknown Unknown Uncoded 12/05/22 14:36 Plan Diagnosis/Plan: Unchanged I have reviewed the history and physical and performed a pertinent physical examination on my patient. No changes have occurred unless specified. Time Spent With Patient Time: Total time managing care of this patient today ____ minutes.
--- NOTE | 2022-12-24 13:35 | HO.CARDIVERS ---
Cardioversion Procedure Note Cardioversion Date of Procedure: 12/24/22 Ordering Provider: Adam Lowery MD Performing Provider: Adam Lowery MD Indication for Procedure: Afib, cardiomyopathy Performed with Transesophageal Echo: No Consent: Verbal and Written consent was obtained from the patient before starting. The patient was made aware of the risk of stroke, failure and arrhythmia. Procedure: After consent obtained, defib pads were attached and the patient was sedated by the anesthesia team. Once adequate sedation achieved, single synchronized shock of 200 J was given to the patient. She converted to sinus rhythm. Complications: None Recommendations: c/w Eliquis. c/w Amiodarone 200 mg daily. f/u in office in few weeks.
== END 2022-12-24 15:50 | disposition home or self-care (01) ==
PROVIDERS: PCP Family Medicine; Visit Provider Internal Medicine Cardiovascular Disease
PROC: 5A2204Z Restoration of Cardiac Rhythm, Single (ICD-10-PCS; principal; 2022-12-24 13:00)
DX: I48.19 Other persistent atrial fibrillation (principal); I42.9 Cardiomyopathy, unspecified; I11.0 Hypertensive heart disease with heart failure; I50.9 Heart failure, unspecified; Z79.01 Long term (current) use of anticoagulants; Z79.899 Other long term (current) drug therapy; Z91.040 Latex allergy status; Z88.8 Allergy status to other drugs, medicaments and biological substances; Z87.891 Personal history of nicotine dependence
CPT/HCPCS: 92960; 93005; J2370

== ENCOUNTER 2023-02-05 13:57 | Outpatient (AMB) | payer OTHER, SELFPAY ==
--- NOTE | 2023-02-05 14:01 | A.OFFVIS_ITS ---
Intake Vital Signs 02/05/23 14:02 Height 5 ft 1 in Weight 122 lb BMI 23.0 BP 138/84 Blood Pressure Location Lt brachial Position Sitting Pulse 56 Pulse Source Monitor Intake Visit Reasons: [facility] FUP S/P CARDIOVERSION Intake Note: [facility] follow up with EKG after cardioversion. Cellar Pumper Required: No Accompanied by: Self / Same As Patient Allergies iodine Allergy (Unknown, Verified 02/05/23 14:07) Unknown amlodipine [From [facility]] Adverse Reaction (Mild, Verified 02/05/23 14:07) FATIGUE jovi inhibitors Allergy (Unknown, Uncoded 02/05/23 14:07) Unknown bees Allergy (Unknown, Uncoded 02/05/23 14:07) Unknown cardiac med not sure of the na Allergy (Unknown, Uncoded 02/05/23 14:07) Unknown telfa Allergy (Unknown, Uncoded 02/05/23 14:07) Unknown Medication List - Last Reconciled 02/05/23 by Adam Lowery MD albuterol sulfate 90 mcg/actuation 2 puffs inhalation BID PRN amiodarone 200 mg PO DAILY apixaban (Eliquis) 2.5 mg PO BID bupropion HCl 200 mg PO DAILY calcium carbonate (Antacid (calcium carbonate)) 400 mg PO BID carboxymethylcellulose sodium 0.5% 1 drp ophthalmic (eye) QID PRN carvedilol 3.125 mg See Protocol PO BID clonidine HCl 0.1 mg See Protocol PO BID ferrous sulfate 325 mg PO DAILY furosemide 40 mg (2 x 20 mg) PO DAILY mirabegron ER 25 mg PO DAILY montelukast 10 mg PO BEDTIME multivitamin 1 tab PO DAILY pantoprazole 40 mg PO DAILY psyllium 2 packets PO DAILY sennosides-docusate sodium 8.6-50 mg (Senna Plus) 1 tab-cap PO BID spironolactone 25 mg See Protocol PO DAILY venlafaxine ER 75 mg PO DAILY HPI HPI Comments History of Present Illness Details 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 She was seen in the hospital when she presented with congestive heart failure in AFib with RVR. She was rate controlled diuresed and started on guideline directed medical therapy for cardiomyopathy which was a new diagnosis. She has background history of bypass surgery. She had no anginal symptoms. She is returning and feeling better. She has no chest discomfort whatsoever. She has no shortness of breath currently no orthopnea or PND. Continues to be in AFib with RVR. Taking medications regularly. No other concerns currently. 02/03/23: She is here for follow-up. She underwent cardioversion in December 2022. She has on amiodarone for rhythm control strategy. EKG in the office is showing sinus bradycardia. She has been asymptomatic and denying any significant shortness of breath. No chest discomfort. She has background of bypass surgery. [facility] Medical History (Updated 02/05/23 @ 14:39 by Adam Lowery MD) Adjustment disorder Allergic rhinitis Anemia Asthma Atherosclerotic heart disease of [place] coronary artery with other forms of angina pectoris Cardiomyopathy CHF (congestive heart failure) Chronic kidney disease Heart failure History of cardioversion HTN (hypertension) Impaired fasting glucose Migraine Mixed hyperlipidemia New onset a-fib Osteoporosis Traumatic brain injury Vitamin D deficiency Surgical History H/O four vessel coronary artery bypass graft Social History Household Members: None Housing: House Do you presently have visiting 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 Review of Systems Const Denies weakness ENT Denies dizziness Card Denies chest pain, Denies chest pain with activity, Denies syncope, Denies rapid heart rate, Denies pedal edema, Denies edema, Denies leg edema, Denies lightheadedness, Denies palpitations, Denies dyspnea, Denies dyspnea on exertion and Denies orthopnea Resp Denies cough, Denies dyspnea and Denies dyspnea on exertion GI Denies hematochezia and Denies change in stool character Musc Denies abnormal gait, Denies muscle cramps, Denies muscle weakness, Denies numbness, Denies radiating pain into limb and Denies tingling Neuro Denies abnormal gait, Denies dizziness, Denies syncope, Denies numbness, Denies tingling and Denies weakness Endo Denies palpitations Physical Exam Vital Signs: Last Vital Signs Pulse 56 02/05/23 14:02 BP 138/84 02/05/23 14:02 BMI result Body Mass Index 23.0 GENERAL APPEARANCE: in no acute distress, pleasant. NECK: no carotid bruit, no jugular venous distention. SKIN: no suspicious lesions, warm and dry. HEART: no murmurs, regular rate and rhythm. Bradycardic. LUNGS: clear to auscultation bilaterally. ABDOMEN: soft, nontender. EXTREMITIES: Trace edema. PERIPHERAL PULSES: equal. NEUROLOGIC: No gross deficits, AAO X 3 Office Procedures EKG Details: Sinus bradycardia 56 beats per min, normal axis, nonspecific ST changes, QTC 488 milliseconds. [id number], Complete Assessment & Plan Assessment & Plan (1) Cardiomyopathy: Code(s): I42.9 - Cardiomyopathy, unspecified (2) PAF (paroxysmal atrial fibrillation): Code(s): I48.0 - Paroxysmal atrial fibrillation Plan [age] year female here for follow-up. She has background history of bypass surgery. In October 2022 she was admitted to [facility] for heart failure and new diagnosis of atrial fibrillation. She was noticed to have severe cardiomyopathy. She was diuresed and was started on guideline directed medical therapy. She was anticoagulated and eventually underwent cardioversion in December 2022. She has been sinus rhythm since then and is currently taking amiodarone 200 mg once a day. Overall clinically stable. We will do limited echocardiogram to reassess the LV function. Same medications for now. Follow-up in 3 months. Thank you for allowing me to participate in the care of your patient. Please feel free to contact me if you have any questions. Medications: Changed From amiodarone Take 2 tablets twice a day x 10 days, then 1 tablet daily; 120 tabs 3RF I48.19 - Other persistent atrial fibrillation To amiodarone 200 mg PO DAILY I48.19 - Other persistent atrial fibrillation Discontinued carboxymethylcellulose sodium 0.5% 1 drp ophthalmic (eye) BID 30 ea 0RF potassium chloride 20 mEq PO BID 100 ea 0RF calcium carbonate 200 mg PO BID 100 tabs 0RF furosemide 20 mg PO DAILY 90 tabs 0RF Coding Level of Care Code Est Pt Level 4 (43385) Diagnoses Cardiomyopathy I42.9 PAF (paroxysmal atrial fibrillation) I48.0 CPT Codes EKG - CPT: 42793-[id number], Complete ([id number])
[2023-02-05 14:02] VITALS: BP 138/84; PULSE 56; BMI 23.0
== END 2023-02-05 14:31 | disposition home or self-care (01) ==
PROVIDERS: PCP Family Medicine; Visit Provider Internal Medicine Cardiovascular Disease
DX: I42.9 Cardiomyopathy, unspecified (principal); I48.0 Paroxysmal atrial fibrillation
CPT/HCPCS: 93010; 99214

== ENCOUNTER → 2023-02-05 13:57 | Outpatient (BNVA) | payer OTHER, SELFPAY | PROVIDERS: PCP Family Medicine; Visit Provider Internal Medicine Cardiovascular Disease | DX: I42.9 Cardiomyopathy, unspecified (principal); M25.511 Pain in right shoulder; I11.0 Hypertensive heart disease with heart failure; I50.9 Heart failure, unspecified; I48.0 Paroxysmal atrial fibrillation; Z98.890 Other specified postprocedural states; Z95.1 Presence of aortocoronary bypass graft | CPT/HCPCS: 93005; 99212 ==

== ENCOUNTER 2023-03-07 00:19 | Inpatient (IN) | payer OTHER, SELFPAY ==
--- NOTE | ~2023-03-07 | XR_ITS ---
EXAMINATION: XR TIBIA AND FIBULA, RIGHT CLINICAL INFORMATION: Low suspicion for osteomyelitis anterior tibia COMPARISON: None available. TECHNIQUE: AP and lateral views of the right tibia and fibula were obtained. FINDINGS: No fracture or cortical disruption. No osseous erosions. Alignment maintained at the knee and ankle. The bones are osteopenic. Soft tissue swelling diffusely with surgical clips medially. XR/XR tibia fibula RT 2V IMPRESSION: Osteopenia. No acute osseous abnormality. No osseous erosions. Soft tissue swelling.
--- NOTE | 2023-03-07 00:38 | ED_ITS ---
HPI - General Adult General Stated complaint: infected wound ETOH Time Seen by Provider: 03/07/23 00:28 Source: patient Mode of arrival: EMS Limitations: no limitations History of Present Illness HPI narrative: Patient comes to the emergency room via ambulance complaining of alcohol intoxication and cellulitis to the right lower extremity. According to EMS, the patient pressed her Life Alert button because patient was intoxicated and could not get out of the chair. When EMS arrived to the patient's residence to assist her, they noticed that the patient has cellulitis in the right lower extremity. Patient states that approximately a week ago, she injured her anterior right lower extremity with the file keeper door. Patient states that she did not think that the wound would become infected. Patient complaining of localized pain. Related Data Home Medications Medication Instructions Recorded Confirmed albuterol sulfate 90 mcg/actuation 2 puff inhalation BID PRN Cough 10/21/22 12/24/22 aerosol inhaler calcium carbonate 200 mg calcium 400 mg PO BID 10/21/22 12/24/22 (500 mg) chewable tablet (Antacid (calcium carbonate)) carboxymethylcellulose sodium 0.5 1 drp ophthalmic (eye) QID PRN Dry 10/21/22 12/24/22 % eye drops in a dropperette Eye(S) ferrous sulfate 325 mg (65 mg 325 mg PO DAILY 10/21/22 12/24/22 iron) tablet mirabegron 25 mg tablet,extended 25 mg PO DAILY 10/21/22 12/24/22 release 24 hr montelukast 10 mg tablet 10 mg PO BEDTIME 10/21/22 12/24/22 multivitamin 1 tab PO DAILY 10/21/22 12/24/22 psyllium 2 packet PO DAILY 10/21/22 12/24/22 sennosides 8.6 mg-docusate sodium 1 tab-cap PO BID 10/21/22 12/24/22 50 mg tablet (Senna Plus) apixaban 2.5 mg tablet (Eliquis) 2.5 mg PO BID 12/05/22 12/24/22 amiodarone 200 mg tablet 200 mg PO DAILY 02/05/23 02/05/23 Previous Rx's Medication Instructions Recorded bupropion HCl 200 mg tablet,12 hr 200 mg PO DAILY #90 tabs 02/05/22 sustained-release pantoprazole 40 mg tablet,delayed 40 mg PO DAILY #90 tabs 02/05/22 release venlafaxine 75 mg capsule,extended 75 mg PO DAILY #90 caps 02/05/22 release 24 hr carvedilol 3.125 mg tablet 3.125 mg PO BID #60 tabs 10/26/22 clonidine HCl 0.1 mg tablet 0.1 mg PO BID #60 tabs 10/26/22 furosemide 20 mg tablet 40 mg PO DAILY #60 tabs 10/26/22 spironolactone 25 mg tablet 25 mg PO DAILY #30 tabs 10/26/22 Allergies Allergy/AdvReac Type Severity Reaction Status Date / Time iodine Allergy Unknown Unknown Verified 02/05/23 14:07 amlodipine [From [facility]] AdvReac Mild FATIGUE Verified 02/05/23 14:07 jovi inhibitors Allergy Unknown Unknown Uncoded 02/05/23 14:07 bees Allergy Unknown Unknown Uncoded 02/05/23 14:07 cardiac med not sure of the Allergy Unknown Unknown Uncoded 02/05/23 14:07 na telfa Allergy Unknown Unknown Uncoded 02/05/23 14:07 Review of Systems Review of Systems: Constitutional : No Weight loss, No Fever, No Chills, No Night Sweats, No Fatigue, No Malaise ENT/Mouth : No Hearing loss, No Ear Pain, No Nasal Congestion, No Sinus Pain, No Hoarseness, No sore throat, No Rhinorrhea, No Swallowing Difficulty Eyes: No Eye Pain, No Swelling, No Redness, No Foreign Body, No Discharge, No Vision Changes Cardiovascular : No Chest Pain, No SOB, No Dyspnea on Exertion, No Orthopnea, No Edema, No Palpitations Respiratory : No Cough, No Sputum, No Wheezing, No Smoke Exposure, No Dyspnea Gastrointestinal : No Nausea, No Vomiting, No Diarrhea, No Constipation, No abdominal Pain, No Hematochezia, No Melena Genitourinary : no irregular bleeding, No Dysuria, No Urinary Frequency, No H ematuria, No Urinary Incontinence, No Urgency, No Flank Pain, No Urinary Flow Changes, No Hesitancy Musculoskeletal : No joint pain, No Myalgias, No Joint Swelling Skin : Complaining of an infected skin lesion in the tibial aspect of the right leg Neuro : No Weakness, No Numbness, No Paresthesias, No Loss of Consciousness, No Dizziness, No Headache Psych : No Anxiety/Panic, No Depression, No SI/HI/AH/VH, admits to drinking alcohol Heme/Lymph: No Bruising, No Bleeding,No Lymphadenopathy Endocrine : No Polyuria, No Polydipsia, No Temperature Intolerance [facility] Past Medical History Medical History Adjustment disorder Allergic rhinitis Anemia Asthma Atherosclerotic heart disease of [place] coronary artery with other forms of angina pectoris Cardiomyopathy CHF (congestive heart failure) Chronic kidney disease Heart failure History of cardioversion HTN (hypertension) Impaired fasting glucose Migraine Mixed hyperlipidemia New onset a-fib Osteoporosis Traumatic brain injury Vitamin D deficiency Surgical History H/O four vessel coronary artery bypass graft Social History Social History Household Members: None Housing: House Do you presently have visiting nurse or other home services: Yes (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 Oriented X3. No acute distress. Eyes: Pupils equal, round and reactive to light. ENT: Pharynx normal. Neck: Normal inspection. Neck supple. No lymph nodes noted. No crepitus CVS: Normal heart rate and rhythm. Pulses normal. Normal S1 and S2 Respiratory: No respiratory distress. Breath sounds normal. No Wheezing. No rales Abdomen: Soft and nontender. No rigidity. No distention. Skin: Skin warm and dry. Cellulitis to the anterior aspect of the right lower extremity, there is an open abrasion, seems that this small amount of necrotic tissue. Extremities: +1 pitting edema bilaterally, No Lacerations. No Rash Neuro: Oriented X 3. No motor deficit. No sensory deficit. Moving all extremities. No slurred speech. CN 2 through 12 grossly intact Psych: calm, cooperative, normal affect Course Course Course Narrative: -all of patient's labs and imaging pending Medical Decision Making Medical Decision Making MDM Narrative: -patient is not septic, normal white blood cell count, x-ray does not show any signs of osteomyelitis. -patient is by herself, takes poor care of herself, unsafe discharge. -my interpretation of labs, patient has acute kidney injury, patient receiving IV fluids. -patient was started on IV antibiotics and IV fluids -I discussed the patient with Dr. Wilde, patient being admitted Differential Diagnosis Differential Diagnoses: The differential diagnosis associated with the presentation includes (Cellulitis, dehydration, abrasion) Admission/Observation Consideration of admission/observation: Escalation of care including admission/observation considered Consult Healthcare Provider Management of the patient was discussed with: Hospitalist Lab Data MDM Lab Attestation statement: I reviewed the patient's lab results. 03/07/23 00:56 03/07/23 00:56 Labs: Lab Results 03/07/23 03/07/23 03/07/23 Range/Units 00:56 00:56 00:56 WBC 5.4 (4.8-10.8) X10*3/uL RBC 4.18 L (4.20-5.50) X10*6/uL Hgb 15.1 D (12.0-16.0) g/dl Hct 44.1 (37.0-47.0) % MCV 105.5 H (80.0-98.0) fL MCH 36.1 H (27.0-33.0) pg MCHC 34.2 (31.0-35.0) g/dl RDW 14.5 (11.0-16.0) % Plt Count 251 D (160-400) X10*3/uL MPV 9.2 L (9.4-12.3) fL Immature Gran % (Auto) 0.9 H (0.0-0.4) % Neut % (Auto) 64.1 (45-73) % Lymph % (Auto) 18.8 L (20-40) % [place] % (Auto) 13.8 H (2-11) % Eos % (Auto) 0.9 (0-4) % Baso % (Auto) 1.5 (0-2) % Lymph # (Auto) 1.0 L (1.2-4.9) X10*3/uL [place] # (Auto) 0.7 (0.1-1.2) X10*3/uL Eos # (Auto) 0.1 (0.0-0.4) X10*3/uL Baso # (Auto) 0.1 (0.0-0.2) X10*3/uL Abs Immat Gran (auto) 0.05 H (0.00-0.03) X10*3/uL Absolute Neuts (auto) 3.4 (2.0-8.3) x10*3/uL Absolute Nucleated RBC 0.000 (0.0-0.012) X10*3/uL Nucleated RBC % (auto) 0.0 (0.0-0.2) /100WBC Sodium 141 (135-145) mmol/L Potassium 3.6 (3.3-5.1) mmol/L Chloride 100 (96-108) mmol/L Carbon Dioxide 26 (22-29) mmol/L Anion Gap 19 (12-20) BUN 28 H (9-16) mg/dL Creatinine 1.68 H (0.5-1.4) mg/dL Estim Creat Clear Calc TNP Estimated GFR 30 Random Glucose 93 (60-115) mg/dL Lactic Acid 1.3 (0.5-2.0) mmol/L Calcium 10.4 H D (8.4-10.2) mg/dL Total Bilirubin 0.4 (0.0-1.0) mg/dL AST 23 (5-31) U/L ALT 16 (0-31) U/L Alkaline Phosphatase 99 (39-117) U/L C-Reactive Protein (< or = 0.50) mg/dL Total Protein 8.5 H (6.5-8.0) g/dL Albumin 4.6 (3.5-5.0) g/dL Ethyl Alcohol 299 mg/dL 03/07/23 Range/Units 00:56 WBC (4.8-10.8) X10*3/uL RBC (4.20-5.50) X10*6/uL Hgb (12.0-16.0) g/dl Hct (37.0-47.0) % MCV (80.0-98.0) fL MCH (27.0-33.0) pg MCHC (31.0-35.0) g/dl RDW (11.0-16.0) % Plt Count (160-400) X10*3/uL MPV (9.4-12.3) fL Immature Gran % (Auto) (0.0-0.4) % Neut % (Auto) (45-73) % Lymph % (Auto) (20-40) % [place] % (Auto) (2-11) % Eos % (Auto) (0-4) % Baso % (Auto) (0-2) % Lymph # (Auto) (1.2-4.9) X10*3/uL [place] # (Auto) (0.1-1.2) X10*3/uL Eos # (Auto) (0.0-0.4) X10*3/uL Baso # (Auto) (0.0-0.2) X10*3/uL Abs Immat Gran (auto) (0.00-0.03) X10*3/uL Absolute Neuts (auto) (2.0-8.3) x10*3/uL Absolute Nucleated RBC (0.0-0.012) X10*3/uL Nucleated RBC % (auto) (0.0-0.2) /100WBC Sodium (135-145) mmol/L Potassium (3.3-5.1) mmol/L Chloride (96-108) mmol/L Carbon Dioxide (22-29) mmol/L Anion Gap (12-20) BUN (9-16) mg/dL Creatinine (0.5-1.4) mg/dL Estim Creat Clear Calc Estimated GFR Random Glucose (60-115) mg/dL Lactic Acid (0.5-2.0) mmol/L Calcium (8.4-10.2) mg/dL Total Bilirubin (0.0-1.0) mg/dL AST (5-31) U/L ALT (0-31) U/L Alkaline Phosphatase (39-117) U/L C-Reactive Protein 2.51 H (< or = 0.50) mg/dL Total Protein (6.5-8.0) g/dL Albumin (3.5-5.0) g/dL Ethyl Alcohol mg/dL Independent Interpretation I performed an independent interpretation of an: Plain X-Ray (No signs of osteomyelitis) Radiology Impression Discussion of test interpretation with radiology: I have reviewed the radiologist's reading. Radiologist Impression: FINDINGS: No fracture or cortical disruption. No osseous erosions. Alignment maintained at the knee and ankle. The bones are osteopenic. Soft tissue swelling diffusely with surgical clips medially.? XR/XR tibia fibula RT 2V IMPRESSION: Osteopenia. No acute osseous abnormality. No osseous erosions. Soft tissue swelling Chronic Conditions Patient?s care impacted by: Other (Alcohol abuse) Social Determinants Patient?s care significantly limited by Social Determinants of Health including: Alcoholism and drug addiction in family Critical Care Time Critical Care Time Critical Care Time: Yes Total Critical Care Time: 60 Attestation: I have personally provided critical care time. Time includes review of lab data, radiology results, discussion with consultants, and monitoring for potential decompensation. Intervention performed as documented. Discharge Plan Discharge Clinical Impression: Acute kidney injury, Cellulitis Patient Disposition: Admitted As Inpatient Prescriptions: No Action multivitamin Tablet 1 tab PO DAILY sennosides-docusate sodium [Senna Plus] 8.6-50 mg Tablet 1 tab-cap PO BID psyllium Packet 2 packet PO DAILY Rx Instructions: mix into at least 8 oz of water or juice before administering ferrous sulfate 325 mg (65 mg iron) Tablet 325 mg PO DAILY montelukast 10 mg Tablet 10 mg PO BEDTIME albuterol sulfate 90 mcg/actuation Hfa Aerosol Inhaler 2 puff INHALATION BID PRN (Reason: Cough) mirabegron 25 mg Tablet Extended Release 24 Hr 25 mg PO DAILY calcium carbonate [Antacid (calcium carbonate)] 200 mg calcium (500 mg) tablet,chewable 400 mg PO BID carboxymethylcellulose sodium 0.5 % dropperette 1 drp ophthalmic (eye) QID PRN (Reason: Dry Eye(S)) clonidine HCl 0.1 mg Tablet 0.1 mg PO BID Qty: 60 0RF Protocol: Hold for SBP< HOLD for SBP < : 90 spironolactone 25 mg Tablet 25 mg PO DAILY Qty: 30 0RF Protocol: Hold for SBP< HOLD for SBP < : 90 carvedilol 3.125 mg Tablet 3.125 mg PO BID Qty: 60 0RF Protocol: Hold for SBP/HR < HOLD for SBP < : 90 HOLD for HR < : 60 furosemide 20 mg tablet 40 mg PO DAILY Qty: 60 0RF venlafaxine 75 mg capsule,extended release 24hr 75 mg PO DAILY Qty: 90 0RF pantoprazole 40 mg tablet,delayed release (DR/EC) 40 mg PO DAILY Qty: 90 0RF bupropion HCl 200 mg tablet sustained-release 12 hr 200 mg PO DAILY Qty: 90 0RF Eliquis 2.5 mg tablet 2.5 mg PO BID amiodarone 200 mg tablet 200 mg PO DAILY
[2023-03-07 01:02] LABS: MANUAL DIFF FLAG NO
[2023-03-07 01:09] LABS: Basophils Absolute Auto 0.1 X10*3/uL (0.0-0.2); Basophils Percent Auto 1.5 % (0-2); Eosinophils Absolute Auto 0.1 X10*3/uL (0.0-0.4); Eosinophils Percent Auto 0.9 % (0-4); Hematocrit 44.1 % (37.0-47.0); Hemoglobin 15.1 g/dl (12.0-16.0); Imm Gran Abs Auto 0.05 X10*3/uL (0.00-0.03); Imm Gran Pct Auto 0.9 % (0.0-0.4); Lymphocytes Percent Auto 18.8 % (20-40); Mean Corpuscular HGB Conc 34.2 g/dl (31.0-35.0); Mean Corpuscular Hemoglobin 36.1 pg (27.0-33.0); Mean Corpuscular Volume 105.5 fL (80.0-98.0); Mean Platelet Volume 9.2 fL (9.4-12.3); Monocytes Absolute Auto 0.7 X10*3/uL (0.1-1.2); Monocytes Percent Auto 13.8 % (2-11); Neutrophils Absolute Auto 3.4 x10*3/uL (2.0-8.3); Neutrophils Percent Auto 64.1 % (45-73); Platelet Count 251 X10*3/uL (160-400); Red Blood Count 4.18 X10*6/uL (4.20-5.50); Red Cell Distribution Width 14.5 % (11.0-16.0); White Blood Count 5.4 X10*3/uL (4.8-10.8)
[2023-03-07 01:15] LABS: Lactic Acid 1.3 mmol/L (0.5-2.0)
[2023-03-07 01:17] LABS: C Reactive Protein 2.51 mg/dL (< or = 0.50)
[2023-03-07 01:23] LABS: Alanine Aminotransferase 16 U/L (0-31); Albumin Level 4.6 g/dL (3.5-5.0); Alkaline Phosphatase 99 U/L (39-117); Anion Gap 19 (12-20); Aspartate Amino Transferase 23 U/L (5-31); Bilirubin Total 0.4 mg/dL (0.0-1.0); Blood Urea Nitrogen 28 mg/dL (9-16); Calcium 10.4 mg/dL (8.4-10.2); Carbon Dioxide 26 mmol/L (22-29); Chloride 100 mmol/L (96-108); Estimated Glomerular Filt Rate 30; Ethanol 299 mg/dL; Glucose Random 93 mg/dL (60-115); Potassium 3.6 mmol/L (3.3-5.1); Sodium 141 mmol/L (135-145); Total Protein 8.5 g/dL (6.5-8.0)
[2023-03-07 01:31] VITALS: BP 136/86; BP 145/62; PULSE 64; RESP 18; TEMP 36.4; O2SAT 95; O2SAT 96; BMI 22.3
--- NOTE | 2023-03-07 01:45 | P.HPHOSP_ITS ---
History of Present Illness Date of Service: 03/07/23 Chief Complaint: Cellulitis This is a 77-year-old female with pertinent history of paroxysmal atrial fibrillation on Eliquis, mood disorder, alcohol use disorder, gastroesophageal reflux disease, congestive heart failure with preserved ejection fraction who presents to the emergency department for evaluation of wound to the right lower extremity. Patient states that she accidentally hit her right lower extremity with the manager of network door. Patient noticed that her right lower extremity is red, warm and tender. Intermittently it is with purulent drainage. Patient denies fever or chills. No chest discomfort, palpitations, shortness of breath, abdominal pain, changes in urinary or bowel habits. In the emergency department, creatinine found to be elevated Review of Systems Constitutional: Constitutional: Reports fatigue and Reports lethargy Cardiovascular: Cardiovascular: Reports no additional cardiovascular complaints Respiratory: Respiratory: Reports no additional respiratory complaints Gastrointestinal: Gastrointestinal: Reports no additional gastrointestinal complaints Genitourinary: Genitourinary: Reports no additional female genitourinary complaints Musculoskeletal: Musculoskeletal: Reports arthralgias and Reports joint swelling Endocrine: Endocrine: Reports fatigue PMFSH Medical History Adjustment disorder Allergic rhinitis Anemia Asthma Atherosclerotic heart disease of [place] coronary artery with other forms of angina pectoris Cardiomyopathy CHF (congestive heart failure) Chronic kidney disease Heart failure History of cardioversion HTN (hypertension) Impaired fasting glucose Migraine Mixed hyperlipidemia New onset a-fib Osteoporosis Traumatic brain injury Vitamin D deficiency Surgical History H/O four vessel coronary artery bypass graft Social History Household Members: None Housing: House Do you presently have visiting nurse or other home services: Yes (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 Allergies Allergy/AdvReac Type Severity Reaction Status Date / Time iodine Allergy Unknown Unknown Verified 02/05/23 14:07 amlodipine [From [facility]] AdvReac Mild FATIGUE Verified 02/05/23 14:07 orestes inhibitors Allergy Unknown Unknown Uncoded 02/05/23 14:07 bees Allergy Unknown Unknown Uncoded 02/05/23 14:07 cardiac med not sure of the Allergy Unknown Unknown Uncoded 02/05/23 14:07 na telfa Allergy Unknown Unknown Uncoded 02/05/23 14:07 Active Medications: Current Medications Acetaminophen (Acetaminophen 325 Mg Tablet) 650 mg PO Q6H PRN PRN Reason: Pain, Mild (Pain Scale 1-3) Enoxaparin Sodium (Enoxaparin Sodium 40 Mg/0.4 Ml Syringe) 40 mg SUBCUT Q24H [facility] Sodium Chloride (Ns) 1,000 mls @ 999 mls/hr IVCONT .Q1H1M ONE Stop: 03/07/23 02:39 Vancomycin HCl 1,000 mg/ (Sodium Chloride) 270 mls @ 270 mls/hr IV ONCE ONE Stop: 03/07/23 02:41 Thiamine HCl 100 mg/ Sodium (Chloride) 101 mls @ 202 mls/hr IV ONCE ONE Stop: 03/07/23 02:11 Melatonin (Melatonin 3 Mg Tablet) 6 mg PO BEDTIME PRN PRN Reason: Insomnia Ondansetron HCl (Ondansetron Hcl 4 Mg/2 Ml Vial) 4 mg IVPUSH Q8H PRN PRN Reason: Nausea and Vomiting Pharmacy Consult (Consult Rx Vancomycin Dosing) 1 each MISCELLANE DAILY PRN PRN Reason: Consult order Sodium Chloride (0.9 % Sodium Chloride Flush 3 Ml Syringe) 3 ml IVFLUSH QSHIFT [facility] Home Medications Medication Instructions Recorded Confirmed Last Taken Type albuterol sulfate 90 mcg/actuation 2 puff inhalation BID PRN Cough 10/21/22 12/24/22 Unknown History aerosol inhaler calcium carbonate 200 mg calcium 400 mg PO BID 10/21/22 12/24/22 Unknown History (500 mg) chewable tablet (Antacid (calcium carbonate)) carboxymethylcellulose sodium 0.5 1 drp ophthalmic (eye) QID PRN Dry 10/21/22 12/24/22 Unknown History % eye drops in a dropperette Eye(S) ferrous sulfate 325 mg (65 mg 325 mg PO DAILY 10/21/22 12/24/22 Unknown History iron) tablet mirabegron 25 mg tablet,extended 25 mg PO DAILY 10/21/22 12/24/22 12/24/22 History release 24 hr montelukast 10 mg tablet 10 mg PO BEDTIME 10/21/22 12/24/22 Unknown History multivitamin 1 tab PO DAILY 10/21/22 12/24/22 12/24/22 History psyllium 2 packet PO DAILY 10/21/22 12/24/22 Unknown History sennosides 8.6 mg-docusate sodium 1 tab-cap PO BID 10/21/22 12/24/22 Unknown History 50 mg tablet (Senna Plus) apixaban 2.5 mg tablet (Eliquis) 2.5 mg PO BID 12/05/22 12/24/22 12/24/22 History amiodarone 200 mg tablet 200 mg PO DAILY 02/05/23 02/05/23 Unknown History Physical Exam Vital Signs and Narrative: Elderly female lying in bed in no distress Neck supple, no JVD Irregularly irregular, S1-S2 heard Regular breath sounds bilaterally, no wheezing or crackles appreciated Abdomen soft nontender, no guarding, no rigidity Patient is awake, alert and oriented to self, place, time and person ; no focal motor deficit Right lower extremity with erythema, warmth and tenderness Psych: Normal mood No pedal edema Results Labs 03/07/23 00:56 03/07/23 00:56 Labs: Laboratory Results - last 24 hr 03/07/23 03/07/23 03/07/23 00:56 00:56 00:56 MCV 105.5 H MCH 36.1 H MCHC 34.2 RDW 14.5 Plt Count 251 D MPV 9.2 L Immature Gran % (Auto) 0.9 H Neut % (Auto) 64.1 Lymph % (Auto) 18.8 L [place] % (Auto) 13.8 H Eos % (Auto) 0.9 Baso % (Auto) 1.5 Lymph # (Auto) 1.0 L [place] # (Auto) 0.7 Eos # (Auto) 0.1 Baso # (Auto) 0.1 Abs Immat Gran (auto) 0.05 H Absolute Neuts (auto) 3.4 Absolute Nucleated RBC 0.000 Nucleated RBC % (auto) 0.0 Anion Gap 19 Estim Creat Clear Calc TNP Estimated GFR 30 Random Glucose 93 Lactic Acid 1.3 Calcium 10.4 H D Total Bilirubin 0.4 AST 23 ALT 16 Alkaline Phosphatase 99 C-Reactive Protein Total Protein 8.5 H Albumin 4.6 Ethyl Alcohol 299 03/07/23 00:56 MCV MCH MCHC RDW Plt Count MPV Immature Gran % (Auto) Neut % (Auto) Lymph % (Auto) [place] % (Auto) Eos % (Auto) Baso % (Auto) Lymph # (Auto) [place] # (Auto) Eos # (Auto) Baso # (Auto) Abs Immat Gran (auto) Absolute Neuts (auto) Absolute Nucleated RBC Nucleated RBC % (auto) Anion Gap Estim Creat Clear Calc Estimated GFR Random Glucose Lactic Acid Calcium Total Bilirubin AST ALT Alkaline Phosphatase C-Reactive Protein 2.51 H Total Protein Albumin Ethyl Alcohol Imaging Radiologist's Impressions: Impressions Tibia/Fibula X-Ray 03/07/23 01:13 IMPRESSION: Osteopenia. No acute osseous abnormality. No osseous erosions. Soft tissue swelling. Assessment and Plan (1) Cellulitis: Status: Acute (2) Acute kidney injury: Status: Acute Plan This is a 77-year-old female with pertinent history of paroxysmal atrial fibr illation on Eliquis, mood disorder, alcohol use disorder, gastroesophageal reflux disease, congestive heart failure with preserved ejection fraction who presents to the emergency department for evaluation of wound to the right lower extremity. #. Purulent cellulitis of right lower extremity. Will admit patient and initiate IV antibiotics due to extensive cellulitis. Monitor for improvement. Wound care #. Acute kidney injury on CKD. Resuscitated with IV crystalloids in the ER. Monitor creatinine and urine output. Hold diuretics and avoid nephrotoxins. CPK pending #. Congestive heart failure with reduced ejection fraction. Holding diuretics as above. Continue beta-paardise. Not on Orestes/ARB #. Mood disorder. Continue home mood stabilizers #. Alcohol use disorder. Counseled regarding cessation. Initiating thiamine and folic acid. Monitor CIWA #. Gastroesophageal reflux disease: On PPI #. Paroxysmal atrial fibrillation on Eliquis Med rec pending DVT prophylaxis: Eliquis Full code Admit as inpatient and will require two night minimum hospital stay for IV anti biotics Time Spent With Patient Time: Total time managing care of this patient today ____ minutes. Quality Stroke Does the patient have a stroke diagnosis?: No VTE Prior VTE?: No VTE Risk Level:: Medical - moderate - high VTE Device Contraindication: Treatment Not Indicated VTE Drug Contraindication: N/A - Med Ordered
[2023-03-07 01:55] LABS: Erythrocyte Sedimentation Rate 36 MM/HR (0-20)
[2023-03-07 02:19] LABS: MANUAL DIFF FLAG NO
[2023-03-07 02:21] LABS: Basophils Absolute Auto 0.1 X10*3/uL (0.0-0.2); Basophils Percent Auto 1.3 % (0-2); Eosinophils Absolute Auto 0.1 X10*3/uL (0.0-0.4); Eosinophils Percent Auto 0.9 % (0-4); Hematocrit 42.2 % (37.0-47.0); Hemoglobin 14.2 g/dl (12.0-16.0); Imm Gran Abs Auto 0.03 X10*3/uL (0.00-0.03); Imm Gran Pct Auto 0.6 % (0.0-0.4); Lymphocytes Absolute Auto 0.8 X10*3/uL (1.2-4.9); Mean Corpuscular HGB Conc 33.6 g/dl (31.0-35.0); Mean Corpuscular Hemoglobin 35.8 pg (27.0-33.0); Mean Corpuscular Volume 106.3 fL (80.0-98.0); Monocytes Absolute Auto 0.6 X10*3/uL (0.1-1.2); Neutrophils Absolute Auto 3.8 x10*3/uL (2.0-8.3); Neutrophils Percent Auto 71.2 % (45-73); Platelet Count 211 X10*3/uL (160-400); Red Blood Count 3.97 X10*6/uL (4.20-5.50); Red Cell Distribution Width 14.4 % (11.0-16.0); White Blood Count 5.3 X10*3/uL (4.8-10.8)
[2023-03-07 02:37] LABS: Anion Gap 16 (12-20); Blood Urea Nitrogen 28 mg/dL (9-16); Carbon Dioxide 29 mmol/L (22-29); Chloride 102 mmol/L (96-108); Creatinine Clr Calc Pharmacy 23.6; Estimated Glomerular Filt Rate 31; Glucose Random 100 mg/dL (60-115); Potassium 3.9 mmol/L (3.3-5.1); Sodium 143 mmol/L (135-145)
[2023-03-07] MEDS: Piperacillin Sodium/Tazobactam 3.375 GM in 0.9 % Sodium Chloride 50 ML IV (02:50)
[2023-03-07] MEDS: Thiamine HCL 100 MG in 0.9 % Sodium Chloride 100 ML 202 MG IV (02:58)
[2023-03-07] MEDS: vancomycin HCL 1,500 MG in 0.9 % Sodium Chloride 500 ML 333.33 MG IV (03:15)
[2023-03-07] MEDS: 0.9 % Sodium Chloride 1,000 ML 999 ML IVCONT (03:16)
[2023-03-07 03:27] VITALS: BP 149/65; PULSE 52; RESP 12; TEMP 36.4; O2SAT 98
--- NOTE | 2023-03-07 04:18 | PC.NURSE ---
PT FLORIN from home. PT called ems via life alert as she wasn't able to get up from her chair. She reports drinking 3 Manhattans. EMS notes upon assessment they noted a 3-4inch wound on pt right bear. Lac is red and warm to touch. 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 20g access in left and right ac, labs drawn, medications administered as per sep.
[2023-03-07 06:12] VITALS: BP 116/53; PULSE 61; RESP 17; TEMP 36.6; O2SAT 97
[2023-03-07] MEDS: Folic Acid 1 MG TABLET PO (08:48)
[2023-03-07] MEDS: Thiamine HCL 100 MG TABLET PO (08:48)
--- NOTE | 2023-03-07 11:40 | MHC.CM.PN ---
IMM DELIVERED LIVES ALONE WITH DOG. PT IS ANGOON RIGHT EAR. USES A CANE FOR MOBILITY. HAS MODIFIED BR WITH GRAB BARS AND HAS A STAIR LIFT. LIFE ALERT IN HOME. 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 +HCP (COPY AT HOME) +COVID VAX +FLU VACCINE. PCP AIDEE ERICKSON AT [place]. DP: HOME WITH RESUMPTION OF DEPARTMENT COORDINATOR SERVICES. PT IS OPEN TO [facility] IF REC. AND FIRST CHOICE IS [facility]. REFERRAL SENT. IF REHAB IS REC, SHE PREFERS [facility] OR [facility] NEIGHBOR MAY BE ABLE TO TRANSPORT HOME. CM WILL CONTINUE TO FOLLOW FOR ANY CHANGE IN DC PLAN/NEEDS.
[2023-03-07] MEDS: Piperacillin Sodium/Tazobactam 2.25 GM in 0.9 % Sodium Chloride 50 ML IV ×3 (12:11→23:38)
--- NOTE | 2023-03-07 12:28 | MHC.EDTECH ---
patient used the commode twice. first time was a small BM and the second time was a large BM. Patient ate some of her lunch and received 2 phone calls.
--- NOTE | 2023-03-07 12:30 | PHA.PROG ---
Admission Date/Time: March 07, 2023 02:01 Indication: Cellulitis Weight in k.338 kg Adjusted body weight in K.1 kg [place] body weight in K.1 kg Obesity Dosing Indication % IBW: Serum Creatinine - Last 168 Hours 03/07/23 03/07/23 00:56 02:14 Creatinine 1.68 H 1.60 H Estimated CrCl and GFR - Last 168 Hours 03/07/23 03/07/23 00:56 02:14 Estim Creat Clear Calc TNP 23.6 Estimated GFR 30 31 Vancomycin Loading Dose: 1500 mg Current Vancomycin Dosing Regimen: 750 mg Q24H Date and Time for next Vancomycin Level to be drawn: 03/09 @ 0500 Pharmacist Comments on Vancomycin Plan: Patient received an adequate load dose in the ER on 03/07/23@ 0315 Maintenance dose vancomycin 750 mg Q24H is scheduled to start 03/08 @ 0700. Expected AUC 551 with a trough of 18 Random level will be drawn prior to 3rd dose to access for safety due to patient's renal function and age Pharmacy will monitor renal function daily. Sherlyn Roberts PharmD Vancomycin dosing will take advantage of Particle as a clinical decision support tool that uses Bayesian modeling to calculate individual patient's pharmacokinetic parameters and forecast the patient's drug concentration time course with the target goal AUC 24 range of 400 - 600 mg/L/hr.
[2023-03-07] MEDS: Amiodarone HCL 200 MG TABLET PO (12:35)
[2023-03-07 14:42] VITALS: BP 161/61; PULSE 69; RESP 18; O2SAT 96
--- NOTE | 2023-03-07 14:48 | PC.NURSE ---
report given to floor RN. transporter called Pt aware and agreeable to plan
--- NOTE | 2023-03-07 14:49 | MHC.EDTECH ---
signed belongings sheet with patient. patient requested to use the commode before she went upstairs.
[2023-03-07 15:39] VITALS: BP 156/73; PULSE 70; RESP 20; TEMP 36.9; O2SAT 97
[2023-03-07 19:23] VITALS: BP 148/67; PULSE 70; RESP 18; TEMP 36.5; O2SAT 97
[2023-03-07] MEDS: carvediloL 3.125 MG TABLET PO (20:43)
[2023-03-07] MEDS: Apixaban 2.5 MG TABLET PO (20:43)
[2023-03-07] MEDS: Montelukast Sodium 10 MG TABLET PO (20:43)
[2023-03-07] MEDS: 0.9 % Sodium Chloride Flush 3 ML SYRINGE IVFLUSH (23:38)
[2023-03-08 04:00] VITALS: BP 130/61; PULSE 59; RESP 18; TEMP 36.4; O2SAT 97
[2023-03-08 05:55] LABS: Anion Gap 11 (12-20); Blood Urea Nitrogen 21 mg/dL (9-16); Calcium 9.6 mg/dL (8.4-10.2); Carbon Dioxide 25 mmol/L (22-29); Chloride 107 mmol/L (96-108); Creatinine Clr Calc Pharmacy 25.9; Estimated Glomerular Filt Rate 35; Glucose Random 113 mg/dL (60-115); Potassium 3.7 mmol/L (3.3-5.1); Sodium 139 mmol/L (135-145)
[2023-03-08] MEDS: Piperacillin Sodium/Tazobactam 2.25 GM in 0.9 % Sodium Chloride 50 ML IV ×3 (06:04→17:34)
[2023-03-08] MEDS: vancomycin HCL 750 MG in 0.9 % Sodium Chloride 250 ML 265 MG IV (06:30)
[2023-03-08 07:12] VITALS: BP 158/64; PULSE 56; RESP 20; TEMP 36.3; O2SAT 99
[2023-03-08] MEDS: buPROPion HCl XL 150 MG TAB.ER.24H PO (09:21)
[2023-03-08] MEDS: Thiamine HCL 100 MG TABLET PO (09:21)
[2023-03-08] MEDS: Folic Acid 1 MG TABLET PO (09:21)
[2023-03-08] MEDS: Venlafaxine HCl ER 75 MG CAP.ER.24H PO (09:22)
[2023-03-08] MEDS: Mirabegron 25 MG TAB.ER.24H PO (09:22)
[2023-03-08] MEDS: Multivitamin TABLET 1 TAB PO (09:22)
[2023-03-08] MEDS: Amiodarone HCL 200 MG TABLET PO (09:23)
[2023-03-08] MEDS: carvediloL 3.125 MG TABLET PO ×2 (09:23→20:02)
[2023-03-08] MEDS: Apixaban 2.5 MG TABLET PO ×2 (09:23→20:02)
[2023-03-08 09:27] VITALS: BP 176/58; PULSE 70
--- NOTE | 2023-03-08 13:44 | HO.PM.IMPN ---
Subjective Subjective Date of Service: 03/08/23 Interval History: Denies shakiness, no tremors, no nausea , no vomiting, tolerating diet, feel right lower extremity swelling and redness is improving, denies fever, no chills, no other acute issues overnight. Review of Systems All other system reviewed and negative. Physical Exam Vital Signs: Vital Signs: Last Vital Signs Temp 97.3 F 03/08/23 07:12 Pulse 70 03/08/23 09:27 Resp 20 03/08/23 07:12 BP 176/58 H 03/08/23 09:27 Pulse Ox 99 03/08/23 07:12 O2 Del Method Room Air 03/08/23 07:12 BMI result Body Mass Index 22.3 Const: Other: General awake alert, in no distress Neck supple, no JVD CVS Irregularly irregular, S1-S2 heard Resp :Regular breath sounds bilaterally, no wheezing or crackles Abdomen soft non tender, no guarding, no rigidity Neuro nonfocal there is 6 Right lower extremity redness and swelling improving ,2 dry scabs with no fluctuation or tenderness. Psych: Normal mood Objective Data Active Medications Acetaminophen (Acetaminophen 325 Mg Tablet) 650 mg PO Q6H PRN PRN Reason: Pain, Mild (Pain Scale 1-3) Albuterol Sulfate (Albuterol Sulfate 90 Mcg 8 Gm Inhaler) 2 puff INHALE BID PRN PRN Reason: Cough Amiodarone HCl (Amiodarone Hcl 200 Mg Tablet) 200 mg PO DAILY [facility] Last Admin: 03/08/23 09:23 Dose: 200 mg Documented By: ALOK Apixaban (Apixaban 2.5 Mg Tablet) 2.5 mg PO BID [facility] Last Admin: 03/08/23 09:23 Dose: 2.5 mg Documented By: ALOK Bupropion HCl (Bupropion Hcl Xl 150 Mg Tab.Er.24h) 150 mg PO DAILY [facility] Last Admin: 03/08/23 09:21 Dose: 150 mg Documented By: ALOK Carvedilol (Carvedilol 3.125 Mg Tablet) 3.125 mg PO BID [facility]; Protocol Last Admin: 03/08/23 09:23 Dose: 3.125 mg Documented By: ALOK Folic Acid (Folic Acid 1 Mg Tablet) 1 mg PO DAILY [facility] Last Admin: 03/08/23 09:21 Dose: 1 mg Documented By: ALOK Piperacillin Sod/Tazobactam (Sod 2.25 gm/ Sodium Chloride) 50 mls @ 100 mls/hr IV Q6H [facility] Last Infusion: 03/08/23 12:59 Dose: 0 mls/hr Documented By: ALOK Vancomycin HCl 750 mg/ Sodium (Chloride) 265 mls @ 265 mls/hr IV Q24H [facility] Last Infusion: 03/08/23 08:04 Dose: 0 mls/hr Documented By: ALOK Melatonin (Melatonin 3 Mg Tablet) 6 mg PO BEDTIME PRN PRN Reason: Insomnia Mirabegron (Mirabegron 25 Mg Tab.Er.24h) 25 mg PO DAILY [facility] Last Admin: 03/08/23 09:22 Dose: 25 mg Documented By: ALOK Montelukast Sodium (Montelukast Sodium 10 Mg Tablet) 10 mg PO BEDTIME [facility] Last Admin: 03/07/23 20:43 Dose: 10 mg Documented By: JAMAR Multivitamins/Vitamin C (Multivitamin Tablet) 1 tab PO DAILY [facility] Last Admin: 03/08/23 09:22 Dose: 1 tab Documented By: ALOK Ondansetron HCl (Ondansetron Hcl 4 Mg/2 Ml Vial) 4 mg IVPUSH Q8H PRN PRN Reason: Nausea and Vomiting Pharmacy Consult (Consult Rx Vancomycin Dosing) 1 each MISCELLANE DAILY PRN PRN Reason: Consult order Pharmacy Consult (Consult Rx Perform Med Rec) 1 each MISCELLANE ONCE PRN PRN Reason: Consult order Sodium Chloride (0.9 % Sodium Chloride Flush 3 Ml Syringe) 3 ml IVFLUSH QSHIFT [facility] Last Admin: 03/08/23 09:24 Dose: Not Given Documented By: ALOK Non-Admin Reason: Previously Administered Thiamine HCl (Thiamine Hcl 100 Mg Tablet) 100 mg PO DAILY [facility] Last Admin: 03/08/23 09:21 Dose: 100 mg Documented By: ALOK Tramadol HCl (Tramadol Hcl 50 Mg Tablet) 25 mg PO Q6H PRN PRN Reason: Pain, Moderate(Pain Scale 4-6) Venlafaxine HCl (Venlafaxine Hcl Er 75 Mg Cap.Er.24h) 75 mg PO DAILY [facility] Last Admin: 03/08/23 09:22 Dose: 75 mg Documented By: ALOK Labs 03/07/23 02:14 03/08/23 05:21 Labs: Laboratory Results - last 24 hr 03/08/23 05:21 Anion Gap 11 L Estim Creat Clear Calc 25.9 Estimated GFR 35 Random Glucose 113 Calcium 9.6 Microbiology Microbiology Results: Microbiology 03/07/23 00:56 Blood Culture - Preliminary Blood - Venous No growth after 24 hours. 03/07/23 00:56 Blood Culture - Preliminary Blood - Venous No growth after 24 hours. Assessment and Plan (1) Acute kidney injury: Status: Acute (2) Cellulitis: Status: Acute (3) PAF (paroxysmal atrial fibrillation): Status: Acute Plan 77-year-old female with pertinent history of paroxysmal atrial fibrillation on Eliquis, mood disorder, alcohol use disorder, gastroesophageal reflux disease, congestive heart failure with preserved ejection fraction who presents to the emergency department for evaluation of wound to the right lower extremity. #.? right lower extremity cellulitis improving with less redness and swelling on IV vanco and Zosyn day 2 blood cultures x2 negative x4 hours, normal WBC. If blood cultures remain negative will transition to by mouth antibiotic For now will DC IV vancomycin , encourage ambulation?. #.? Acute kidney injury on CKD.? Creatinine trending down will DC IV vancomycin, continue to hold diuretics and avoid nephrotoxins.? CPK 29, #.? Congestive heart failure with reduced ejection fraction.? Holding diuretics as above.? Continue beta-paradise.? Not on Orestes/ARB #.? Mood disorder.? Continue home mood stabilizers #.? Alcohol use disorder.? Counseled regarding cessation.? No withdrawal symptoms. #.? Gastroesophageal reflux disease:? On PPI #.? Paroxysmal atrial fibrillation on Eliquis DVT prophylaxis:? Eliquis Full code Will need continued inpatient hospitalization for IV antibiotics. Time Spent With Patient Time: Total time managing care of this patient today ____ minutes. Quality Stroke Does the patient have a stroke diagnosis?: No VTE Prior VTE?: No VTE Risk Level:: Medical - moderate - high VTE Device Contraindication: Treatment Not Indicated VTE Drug Contraindication: N/A - Med Ordered
[2023-03-08 15:44] VITALS: BP 130/60; PULSE 64; RESP 20; TEMP 36.2; O2SAT 98
[2023-03-08 19:10] VITALS: BP 162/74; PULSE 62; RESP 20; TEMP 36.4; O2SAT 99
[2023-03-08] MEDS: Montelukast Sodium 10 MG TABLET PO (20:02)
[2023-03-09] MEDS: Piperacillin Sodium/Tazobactam 2.25 GM in 0.9 % Sodium Chloride 50 ML IV ×3 (00:14→11:14)
[2023-03-09] MEDS: 0.9 % Sodium Chloride Flush 3 ML SYRINGE IVFLUSH ×2 (00:15→08:18)
[2023-03-09 00:26] VITALS: BP 168/88; PULSE 60; RESP 18; TEMP 36.2; O2SAT 97
[2023-03-09 04:38] VITALS: BP 166/78; PULSE 68; RESP 18; TEMP 36.3; O2SAT 96
[2023-03-09 05:48] LABS: Anion Gap 13 (12-20); Blood Urea Nitrogen 16 mg/dL (9-16); Calcium 9.5 mg/dL (8.4-10.2); Carbon Dioxide 26 mmol/L (22-29); Chloride 106 mmol/L (96-108); Estimated Glomerular Filt Rate 38; Glucose Random 111 mg/dL (60-115); Potassium 3.7 mmol/L (3.3-5.1); Sodium 141 mmol/L (135-145)
[2023-03-09 07:29] VITALS: BP 176/80; PULSE 58; RESP 20; TEMP 36.4; O2SAT 98
[2023-03-09] MEDS: carvediloL 3.125 MG TABLET PO (08:17)
[2023-03-09] MEDS: Multivitamin TABLET 1 TAB PO (08:17)
[2023-03-09] MEDS: Mirabegron 25 MG TAB.ER.24H PO (08:17)
[2023-03-09] MEDS: buPROPion HCl XL 150 MG TAB.ER.24H PO (08:17)
[2023-03-09] MEDS: Folic Acid 1 MG TABLET PO (08:17)
[2023-03-09] MEDS: Apixaban 2.5 MG TABLET PO (08:17)
[2023-03-09] MEDS: Thiamine HCL 100 MG TABLET PO (08:17)
[2023-03-09] MEDS: Amiodarone HCL 200 MG TABLET PO (08:17)
[2023-03-09] MEDS: Venlafaxine HCl ER 75 MG CAP.ER.24H PO (08:17)
--- NOTE | 2023-03-09 09:30 | P.DS_ITS ---
DS: Providers Provider Date of Service: 03/09/23 Date of admission: 03/07/23 02:01 Primary care physician: Unknown Physician DS: Diagnosis Discharge Diagnosis (1) Acute kidney injury: Status: Acute (2) Cellulitis: Status: Acute (3) PAF (paroxysmal atrial fibrillation): Status: Acute DS: Summary Hospital Course Hospital Course: Date of Service: 03/07/23 Chief Complaint: Cellulitis This is a 77-year-old female with pertinent history of paroxysmal atrial fibrillation on Eliquis, mood disorder, alcohol use disorder, gastroesophageal reflux disease, congestive heart failure with preserved ejection fraction who presents to the emergency department for evaluation of wound to the right lower extremity.? 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 Patient noticed that her right lower extremity is red, warm and tender.? Intermittently it is with purulent drainage.? Patient denies fever or chills.? No chest discomfort, palpitations, shortness of breath, abdominal pain, changes in urinary or bowel habits. In the emergency department, creatinine found to be elevated. hospital course: 77-year-old female with pertinent history of paroxysmal atrial fibrillation on Eliquis, mood disorder, alcohol use disorder, gastroesophageal reflux disease, congestive heart failure with preserved ejection fraction who presents to the emergency department for evaluation of wound to the right lower extremity. #.? admitted with diagnosis of right lower extremity cellulitis treated with IV vancomycin and IV Zosyn right lower extremity redness and swelling improved blood cultures x2 are negative normal leukocytosis no fevers no chills therefore patient is being discharged home on doxycycline 1 tablet twice daily to finish the course of antibiotics,recommend to keep the leg elevated while sitting.i #.? Acute kidney injury on CKD Stage III.? Creatinine returned to baseline recommend to reduce dose of spironolactone to 12.5 mg by mouth daily., #.? Congestive heart failure with reduced ejection fraction.? diuretics were held due to Rafael I recommend to resume Lasix and low-dose spironolactone. #.? Mood disorder.? Continue home mood stabilizers #.? Alcohol use disorder.? Counseled regarding cessation.? No withdrawal symptoms noted. #.? Gastroesophageal reflux disease:? On PPI #.? Paroxysmal atrial fibrillation on Eliquis and coreg. Time Spent with Patient Time attestation: Total time managing care of this patient today ____ minutes. Discharge coordination time: Greater than 30 minutes Quality: Safe Use of Opioids Does Pt have an Active Cancer Diagnosis on the Problem List?: No Quality: Stroke Does the patient have a stroke diagnosis?: No Physical Exam Vital Signs: Vital Signs: Last Vital Signs Temp 97.5 F 03/09/23 07:29 Pulse 58 03/09/23 07:29 Resp 20 03/09/23 07:29 BP 176/80 H 03/09/23 07:29 Pulse Ox 98 03/09/23 07:29 O2 Del Method Room Air 03/09/23 07:29 BMI result Body Mass Index 22.3 Const: Other: General awake alert, in no distress Neck supple, no JVD CVS Irregularly irregular, S1-S2 heard Resp :Regular breath sounds bilaterally, no wheezing or crackles Abdomen soft, non tender, no guarding, no rigidity Neuro nonfocal Right lower extremity redness and swelling improving ,2 dry scabs with no fluctuation or tenderness. Psych: Normal mood DS: Data Data Completed and Pending Labs on day of discharge: Laboratory Results - last 24 hr 03/09/23 05:08 Sodium 141 Potassium 3.7 Chloride 106 Carbon Dioxide 26 Anion Gap 13 BUN 16 Creatinine 1.35 Estim Creat Clear Calc 28.0 Estimated GFR 38 Random Glucose 111 Calcium 9.5 Preliminary micro results at discharge 03/07/23 00:56 Blood Culture - Preliminary Blood - Venous No growth after 48 hours. 03/07/23 00:56 Blood Culture - Preliminary Blood - Venous No growth after 48 hours. Discharge Plan Discharge Anticipated Discharge Date/Time: 03/09/23 09:22 Patient Disposition: Home, Self-Care Discharge Diagnosis: Right lower extremity cellulitis acute kidney injury Referrals: Physician,Unknown J [Primary Care Provider] - 1 Week Discharge Medications: New doxycycline hyclate 100 mg capsule 100 mg PO BID Qty: 8 0RF Continued calcium citrate 200 mg (950 mg) Tablet 400 mg PO BID multivitamin Tablet 1 tab PO DAILY montelukast 10 mg Tablet 10 mg PO BEDTIME albuterol sulfate 90 mcg/actuation Hfa Aerosol Inhaler 2 puff INHALATION BID PRN (Reason: Cough) mirabegron 25 mg Tablet Extended Release 24 Hr 25 mg PO DAILY carboxymethylcellulose sodium 0.5 % dropperette 1 drp ophthalmic (eye) QID PRN (Reason: Dry Eye(S)) clonidine HCl 0.1 mg Tablet 0.1 mg PO BID Qty: 60 0RF Protocol: Hold for SBP< HOLD for SBP < : 90 carvedilol 3.125 mg Tablet 3.125 mg PO BID Qty: 60 0RF Protocol: Hold for SBP/HR < HOLD for SBP < : 90 HOLD for HR < : 60 furosemide 20 mg tablet 40 mg PO DAILY Qty: 60 0RF venlafaxine 75 mg capsule,extended release 24hr 75 mg PO DAILY Qty: 90 0RF pantoprazole 40 mg tablet,delayed release (DR/EC) 40 mg PO DAILY Qty: 90 0RF bupropion HCl 200 mg tablet sustained-release 12 hr 200 mg PO DAILY Qty: 90 0RF Eliquis 2.5 mg tablet 2.5 mg PO BID amiodarone 200 mg tablet 200 mg PO DAILY Changed spironolactone 25 mg Tablet 12.5 mg PO DAILY Qty: 30 0RF Protocol: Hold for SBP< HOLD for SBP < : 90 Discharge Orders: Discharge Order (Routine); Ordered 03/09/23 Ordered By: Jessica Fernandez Diet: Low salt diet Activity on Discharge: As tolerated Stand Alone Forms: Patient Portal Discharge page Care Plan Goals: take doxycycline 1 tablet twice daily for 4 more days decrease dose of spironolactone to 12.5 mg daily ( half tablet spironolactone 25 mg) continue all other medications as before keep right leg elevated while sitting Health Concerns: abstinence from alcohol recommended atrial fibrillation Plan of Treatment: outpatient follow-up with primary care physician call for appointment Assessment: as above
--- NOTE | 2023-03-09 09:59 | MHC.CM.PN ---
Patient is discharged to home self care. She has arranged for transport home.
== END 2023-03-09 14:13 | disposition home or self-care (01) | DRG 603 ==
LOC: HO.ED 01:53 → HO.EDOVER 02:03 → HO.S3 13:08
PROVIDERS: Admitting Provider Student in an Organized Health Care Education/Training Program; Emergency Provider Emergency Medicine; PCP Family Medicine; Visit Provider Hospitalist
DX: L03.115 Cellulitis of right lower limb (principal); N17.9 Acute kidney failure, unspecified; I50.32 Chronic diastolic (congestive) heart failure; K21.9 Gastro-esophageal reflux disease without esophagitis; N18.30 Chronic kidney disease, stage 3 unspecified; F10.129 Alcohol abuse with intoxication, unspecified; E86.0 Dehydration; I25.10 Atherosclerotic heart disease of native coronary artery without angina pectoris; Z95.1 Presence of aortocoronary bypass graft; I48.0 Paroxysmal atrial fibrillation; Y90.8 Blood alcohol level of 240 mg/100 ml or more; Z87.891 Personal history of nicotine dependence; Z79.01 Long term (current) use of anticoagulants; Z79.899 Other long term (current) drug therapy
CPT/HCPCS: 36415; 73590; 80048; 80053; 80307; 82550; 83605; 85025; 85652; 86140; 87040; 99285; J2543; J3370; J3371; J3411

== ENCOUNTER → 2023-03-07 02:01 | Outpatient (BNV) | payer OTHER, SELFPAY | PROVIDERS: Admitting Provider Student in an Organized Health Care Education/Training Program; Emergency Provider Emergency Medicine; Visit Provider Student in an Organized Health Care Education/Training Program | DX: N17.9 Acute kidney failure, unspecified (principal); I48.0 Paroxysmal atrial fibrillation; L03.115 Cellulitis of right lower limb | CPT/HCPCS: 99222; 99233; 99239 ==

== ENCOUNTER → 2023-04-03 14:05 | Outpatient (REF) | payer OTHER, SELFPAY ==
--- NOTE | 2023-04-03 14:10 | CA_ITS ---
Transthoracic Echocardiogram Patient (Last, First, Middle): Louisa Gonzales, Gender: Female Date of : 1945 Age: 77 Procedure Date: 04/03/2023 Procedure Type: Transthoracic Echocardiogram Location: OP Height: 154.94 cm Weight: 58.97 kg BSA: 1.57 m2 Heart Rate: 54 bpm BP: 145 / 80 mmHg Hog Ribber: GEOVANY Referring MD: Adam Lowery MD Symptoms: I42.9 - Cardiomyopathy, unspecified Study Quality: Adequate/Limited ECG Rhythm: Bradycardia Conclusions: - Estimated LVEF about 40%. - There is moderate global hypokinesis. - The apex and apical septum segments are akinetic. Findings Left Ventricle Normal left ventricular cavity size. There is mildly increased left ventricular wall thickness. The left ventricular systolic function is moderately decreased. There is moderate global hypokinesis. Estimated LVEF about 40%. Wall Motion Rest Echo Findings The apex and apical septum segments are akinetic. Mitral Valve The mitral valve appears normal. There is no mitral valve stenosis. Pericardium/Pleural There is no evidence of pericardial effusion. Prior Study Comparison Changes noted compared to prior study dated: 10/22/2022. Improved LVEF. See comment on wall motion. Measurements 2D Linear Measurements IVSd: 1.17 0.6-0.9/0.6-1.0 cm LVIDd: 4.66 3.9-5.3/4.2-5.9 cm LVIDd Index: 2.97 2.4-3.2/2.2-3.1 cm/m2 LVIDs: 3.33 2.0-3.6 cm LVPWd: 1.07 0.7-1.1 cm LV Mass: 236.41 67-162/88-224 g LV Mass Index: 150.58 43-95/49-115 g/m2 LVOT Diam: 2.00 3.0+(-)1.3 cm 2D Systolic Function EF 4C: 42.50 >55% EF 2C: 43.80 >55% EF BiP: 41.50 >55% LVOT LVOT Pk Mika: 0.72 LVOT Mn Mika: 0.49 LVOT VTI: 0.16 LVOT Pk Grad: 2.00 LVOT Mn Grad: 1.00 LVOT Diam: 2.00 LVOT Area: 3.14 Updated in Other Vendor System with Status of Final Eugene Hodge MD electronically signed on 04/04/2023 12:58:04 PM with status of Final
== END ==
LOC: HO.CARD 14:05
PROVIDERS: Visit Provider Internal Medicine Cardiovascular Disease
DX: I42.9 Cardiomyopathy, unspecified (principal)
CPT/HCPCS: 93308

== ENCOUNTER → 2023-04-03 14:10 | Outpatient (BNV) | payer OTHER, SELFPAY | PROVIDERS: Visit Provider Internal Medicine | DX: I42.9 Cardiomyopathy, unspecified (principal) | CPT/HCPCS: 93308 ==

== ENCOUNTER 2023-04-29 13:23 | Outpatient (AMB) | payer OTHER, SELFPAY ==
[2023-04-29 13:31] VITALS: BP 134/62; PULSE 64; BMI 23.0
--- NOTE | 2023-04-29 13:31 | MHC.OFFVIS ---
Intake Vital Signs 04/29/23 13:31 Height 5 ft 2 in Weight 126 lb BMI 23.0 BP 134/62 Blood Pressure Location Lt brachial Position Sitting Pulse 64 Pulse Source Pulse Oximeter Intake Visit Reasons: 3 month follow up after testing Allergies iodine Allergy (Unknown, Verified 04/29/23 13:44) Unknown amlodipine [From [facility]] Adverse Reaction (Mild, Verified 04/29/23 13:44) FATIGUE ojvi inhibitors Allergy (Unknown, Uncoded 02/05/23 14:07) Unknown bees Allergy (Unknown, Uncoded 02/05/23 14:07) Unknown cardiac med not sure of the na Allergy (Unknown, Uncoded 02/05/23 14:07) Unknown telfa Allergy (Unknown, Uncoded 02/05/23 14:07) Unknown Medication List - Last Reconciled 04/29/23 by ARNOLDO SkeltonC albuterol sulfate 90 mcg/actuation 2 puffs inhalation BID PRN amiodarone 200 mg PO DAILY apixaban (Eliquis) 2.5 mg PO BID bupropion HCl 200 mg PO DAILY calcium citrate 400 mg PO BID carboxymethylcellulose sodium 0.5% 1 drp ophthalmic (eye) QID PRN carvedilol 6.25 mg See Protocol PO BID clonidine HCl 0.1 mg See Protocol PO BID furosemide 40 mg (2 x 20 mg) PO DAILY mirabegron ER 25 mg PO DAILY montelukast 10 mg PO BEDTIME multivitamin 1 tab PO DAILY pantoprazole 40 mg PO DAILY spironolactone 12.5 mg See Protocol PO DAILY venlafaxine ER 75 mg PO DAILY HPI 3 month follow up after testing HPI Details Wyatt is a 77-year-old female with past medical history of hypertension, hyperlipidemia, impaired fasting glucose, CKD, who was admitted to [facility] in October 2022 for shortness of breath. Treated for acute systolic heart failure, AFib RVR, cardiomyopathy. She was started on appropriate medical management. As an outpatient she underwent a cardioversion on 12/24/2022 and was started on amiodarone for rhythm control. She was admitted [facility] 03/07/2023 with cellulitis and found to have JACQUELINE. Her diuretics were initially held then restarted with a decreased dose of Aldactone. An outpatient echocardiogram was recently done and she now presents for follow-up. Today she reports that she has been feeling generally well. She denies having chest discomfort at rest or with activity. She has no concerning shortness of breath, PND, orthopnea or edema. No lightheadedness, presyncope, syncope, falls. She has been taking her medications as directed. She has a dog scratch on her hand with a dressing that was self applied. She tolerates normal ADLs without concerning symptoms. 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 Chronic kidney disease Anemia Allergic rhinitis Osteoporosis Adjustment disorder Surgical History H/O four vessel coronary artery bypass graft Social History Household Members: None Housing: House Do you presently have visiting nurse or other home services: Yes Alcohol intake: current Alcohol intake frequency: a few times a week Alcohol type: hard liquor 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 Review of Systems Const All systems reviewed & are unremarkable except as noted in HPI and below ENT Denies dizziness Card Denies chest pain, Denies chest pain at rest, Denies chest pain with activity, Denies rapid heart rate, Denies pedal edema, Denies edema, Denies leg edema, Denies lightheadedness, Denies palpitations, Denies dyspnea, Denies dyspnea on exertion and Denies orthopnea Resp Denies cough, Denies dyspnea and Denies dyspnea on exertion GI Denies hematochezia and Denies change in stool character Musc Denies abnormal gait, Denies limited range of motion, Denies muscle cramps, Denies muscle weakness, Denies numbness, Denies radiating pain into limb, Denies stiffness and Denies tingling Neuro Denies abnormal gait, Denies dizziness, Denies numbness and Denies tingling Endo Denies palpitations Physical Exam Vital Signs: Last Vital Signs Pulse 64 04/29/23 13:31 BP 134/62 04/29/23 13:31 BMI result Body Mass Index 23.0 Const General: cooperative, healthy appearing, comfortable and no acute distress Orientation/consciousness: patient oriented x3 Neck Neck: Yes normal visual inspection Resp Effort & Inspection: normal respiratory effort Auscultation: clear to auscultation bilaterally, no crackles, no rales, no rhonchi and no wheezes Cardio Jugular venous distension: no JVD Rate: regular rate Rhythm: regular rhythm Heart sounds: S1 normal heart sound present, S2 normal heart sound present, no murmurs and no rubs Neuro General: patient oriented x3 Extrem General: Yes normal to inspection and No no pedal edema Psych Appearance: grossly normal Mental Status: mental status grossly normal Speech and movement: Normal speech and movement present Office Procedures EKG Details: Today, read by me, sinus bradycardia, ST and T-wave abnormality, anterior lateral leads, unchanged from prior, QTC 504 milliseconds, reviewed with Dr. Lowery, rate 59 [id number], Complete Assessment & Plan Assessment & Plan (1) Persistent atrial fibrillation: Code(s): I48.19 - Other persistent atrial fibrillation Plan: Newer finding of atrial fibrillation, 10/2022 when she presented for shortness of breath and treated for AFib, Congestive heart failure and cardiomyopathy. She initially treated with heart rate control. She was started on Eliquis for anticoagulation. She then underwent cardioversion as an outpatient on 12/24/2022 with successful conversion to sinus rhythm. She was put on amiodarone for rhythm control. EKG done 02/07/2023 showed sinus bradycardia, heart rate 56. She was admitted to [facility] on 03/07/2023 with JACQUELINE and her Eliquis dose was reduced to 2.5 mg b.i.d. EKG done today shows sinus bradycardia, ST and T-wave abnormality, unchanged from prior, rate 59, QTC [address] Dr. Lowery and she may continue on amiodarone and carvedilol. At this time will have her update labs including CMP, TSH as part of amiodarone monitoring. If her creatinine is less than 1.5 then will plan to increase her Eliquis dose up to 5 mg b.i.d. which is appropriate for her age and normal creatinine. Instructed to let us know if she has any recurrent heart palpitations. Cardiology follow-up in 3 months, sooner if needed (2) Cardiomyopathy: Code(s): I42.9 - Cardiomyopathy, unspecified Qualifiers: Cardiomyopathy type: unspecified Qualified Code(s): I42.9 - Cardiomyopathy, unspecified Plan: Most likely related to AFib with uncontrolled rates. Echocardiogram done 10/22/2022 had shown EF 25-30%, moderate to severe decrease in the RV systolic function, left atrium severely dilated, right atrium moderately dilated, [id number] tricuspid regurgitation, significantly elevated right atrial pressures, no pulmonary hypertension. She was put on carvedilol, Lasix and Aldactone. Her Aldactone dose was reduced to 12.5 mg in February for JACQUELINE. Repeat echocardiogram done 04/03/2023 showed EF 40%, global hypokinesis, apex, apical septum akinetic. Reviewed with Dr. Lowery. EF is improving. No need for stress test at present as she has no anginal symptoms. Continue with medical management. Signs and symptoms of heart failure reviewed with her. (3) Coronary artery disease: Code(s): I25.10 - Atherosclerotic heart disease of koi coronary artery without angina pectoris Qualifiers: Coronary Disease-Associated Artery/Lesion type: koi artery [place] vs. transplanted heart: koi heart Associated angina: without angina Qualified Code(s): I25.10 - Atherosclerotic heart disease of koi coronary artery without angina pectoris Plan: History of CAD with prior Coronary artery bypass grafting. No reports of anginal sounding symptoms. Continue med management for stable CAD. She is not on aspirin as she is on Eliquis. She is on carvedilol. She is not on statin for unclear reason. Will check fasting lipids and plan to start if no contraindications. (4) HTN (hypertension): Code(s): I10 - Essential (primary) hypertension Qualifiers: Hypertension type: primary hypertension Qualified Code(s): I10 - Essential (primary) hypertension Plan: Well controlled at present. No med changes made. Orders: Orders Comprehensive Met. Panel Today I25.10 - Atherosclerotic heart disease of koi coronary artery without angina pectoris, I42.9 - Cardiomyopathy, unspecified Lipid Panel Today I42.9 - Cardiomyopathy, unspecified TSH reflex Free T4 Today I42.9 - Cardiomyopathy, unspecified Medications: Changed From carvedilol 3.125 mg See Protocol PO BID 60 tabs 0RF To carvedilol 6.25 mg See Protocol PO BID Coding Level of Care Code Est Pt Level 4 (35508) Diagnoses Persistent atrial fibrillation I48.19 Cardiomyopathy, unspecified type I42.9 Cardiomyopathy type: unspecified Coronary artery disease involving koi coronary artery of koi heart without angina pectoris I25.10 Coronary Disease-Associated Artery/Lesion type: koi artery [place] vs. transplanted heart: koi heart Associated angina: without angina Primary hypertension I10 Hypertension type: primary hypertension CPT Codes EKG - CPT: [id number], Complete ([id number]) Time Spent (min) 28
== END 2023-04-29 14:18 | disposition home or self-care (01) ==
PROVIDERS: Visit Provider Nurse Practitioner Family
DX: I48.19 Other persistent atrial fibrillation (principal); I42.9 Cardiomyopathy, unspecified; I25.10 Atherosclerotic heart disease of native coronary artery without angina pectoris; I10 Essential (primary) hypertension
CPT/HCPCS: 93010; 99214

== ENCOUNTER → 2023-04-29 13:23 | Outpatient (BNVA) | payer OTHER, SELFPAY | PROVIDERS: Visit Provider Nurse Practitioner Family | DX: I48.19 Other persistent atrial fibrillation (principal); I42.9 Cardiomyopathy, unspecified; I25.10 Atherosclerotic heart disease of native coronary artery without angina pectoris; I10 Essential (primary) hypertension; Z79.01 Long term (current) use of anticoagulants; Z79.899 Other long term (current) drug therapy | CPT/HCPCS: 93005; 99212 ==

== ENCOUNTER 2023-05-06 11:47 | Outpatient (REF) | payer OTHER, SELFPAY ==
[2023-05-06 13:24] LABS: Alanine Aminotransferase 13 U/L (0-31); Alkaline Phosphatase 90 U/L (39-117); Anion Gap 17 (12-20); Aspartate Amino Transferase 27 U/L (5-31); Bilirubin Total 1.2 mg/dL (0.0-1.0); Blood Urea Nitrogen 25 mg/dL (9-16); Calcium 9.5 mg/dL (8.4-10.2); Carbon Dioxide 28 mmol/L (22-29); Chloride 97 mmol/L (96-108); Cholesterol 277 mg/dL (<200); Estimated Glomerular Filt Rate 36; Glucose Random 104 mg/dL (60-115); HDL Cholesterol 67 mg/dL (>40); LDL Cholesterol Calculated 174 mg/dL (<100); Potassium 3.4 mmol/L (3.3-5.1); Sodium 139 mmol/L (135-145); Triglycerides 182 mg/dL (<150)
[2023-05-06 13:39] LABS: TSH reflex Free T4 2.39 uIU/mL (0.32-4.0)
== END 2023-05-06 11:48 | disposition home or self-care (01) ==
LOC: HO.LAB 11:47
PROVIDERS: Visit Provider Nurse Practitioner Family
DX: I25.10 Atherosclerotic heart disease of native coronary artery without angina pectoris (principal); I42.9 Cardiomyopathy, unspecified; Z79.899 Other long term (current) drug therapy
CPT/HCPCS: 36415; 80053; 80061; 84443

== ENCOUNTER 2023-08-12 13:15 | Outpatient (AMB) | payer OTHER, SELFPAY ==
--- NOTE | 2023-08-12 13:18 | MHC.OFFVIS ---
Intake Vital Signs 08/12/23 13:19 Height 5 ft 2 in Weight 128 lb BMI 23.4 BP 124/82 Blood Pressure Location Lt brachial Position Sitting Pulse 52 Pulse Source Monitor Intake Visit Reasons: fu recent rehab admission/meds () Cotton Baler Required: No Allergies iodine Allergy (Unknown, Verified 08/12/23 13:23) Unknown amlodipine [From [facility]] Adverse Reaction (Mild, Verified 08/12/23 13:23) FATIGUE jovi inhibitors Allergy (Unknown, Uncoded 02/05/23 14:07) Unknown bees Allergy (Unknown, Uncoded 02/05/23 14:07) Unknown cardiac med not sure of the na Allergy (Unknown, Uncoded 02/05/23 14:07) Unknown telfa Allergy (Unknown, Uncoded 02/05/23 14:07) Unknown Medication List - Last Reconciled 08/12/23 by ARNOLDO SkeltonC albuterol sulfate 90 mcg/actuation 2 puffs inhalation BID PRN amiodarone 200 mg PO DAILY apixaban (Eliquis) 5 mg PO BID atorvastatin 40 mg PO BEDTIME bupropion HCl 200 mg PO DAILY calcium citrate 400 mg PO BID carboxymethylcellulose sodium 0.5% 1 drp ophthalmic (eye) QID PRN carvedilol 6.25 mg See Protocol PO BID clonidine HCl 0.1 mg See Protocol PO BID furosemide 40 mg (2 x 20 mg) PO DAILY montelukast 10 mg PO BEDTIME multivitamin 1 tab PO DAILY pantoprazole 40 mg PO DAILY spironolactone 12.5 mg See Protocol PO DAILY venlafaxine ER 75 mg PO DAILY HPI fu recent rehab admission/meds () HPI Details Louisa is a 77-year-old female with past medical history of hypertension, hyperlipidemia, impaired fasting glucose, CKD, who was admitted to [facility] in October 2022 for shortness of breath. Treated for acute systolic heart failure, AFib RVR, cardiomyopathy. She was started on appropriate medical management. As an outpatient she underwent a cardioversion on 12/24/2022 and was started on amiodarone for rhythm control. [place] [facility] with cellul[place] and found to have JACQUELINE. Her diuretics were initially held then restarted with a decreased dose of Aldactone. Her Eliquis dose was reduced. In June she had a mechanical fall at home with multi fractures and was admitted to [facility]. She is now in a rehab facility and presents for follow-up. Today she reports that she still resides at the rehab facility. She is not progressing as well as she would like. She has chronic pain from her rib fractures as well as pelvic fractures. She has pain in her left knee from arthritis that was exacerbated. She also has discomfort in her right scapular area from a fracture in that region. She has some mild shortness of breath with activity which could be from deconditioning. She tells me she has lost 10 lb. She is ambulating only short distances with the use of a walker. She is hoping to go back to assisted living once she recovers fully. She has not had any recent cardiac symptoms. No chest discomfort at rest or during activity. No heart palpitations, lightheadedness, presyncope, syncope. No recurrent falls. No shortness of breath at rest, PND, orthopnea or edema. She is taking all meds as given to her. She continues on Eliquis and has no signs of bleeding. [facility] Medical History (Updated 08/12/23 @ 16:29 by Greta Arana NP-C) PAF (paroxysmal atrial fibrillation) History of cardioversion Cardiomyopathy New onset a-fib CHF (congestive heart failure) Vitamin D deficiency Traumatic brain injury Asthma Mixed hyperlipidemia Migraine Impaired fasting glucose HTN (hypertension) Heart failure Atherosclerotic heart disease of [place] coronary artery with other forms of angina pectoris Chronic kidney disease Anemia Allergic rhinitis Osteoporosis Adjustment disorder Surgical History H/O four vessel coronary artery bypass graft Social History Household Members: None Housing: House Do you presently have visiting nurse or other home services: Yes Alcohol intake: current Alcohol intake frequency: a few times a week Alcohol type: hard liquor Comment: Patient alert and oriented. Utilizes call rinaldi effectively. 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 Review of Systems Const All systems reviewed & are unremarkable except as noted in HPI and below Reports fatigue and Reports weakness ENT Denies dizziness Card Denies chest pain, Denies chest pain at rest, Denies chest pain with activity, Denies rapid heart rate, Denies pedal edema, Denies edema, Denies leg edema, Denies lightheadedness, Denies palpitations, Denies dyspnea, Reports dyspnea on exertion and Denies orthopnea Resp Denies cough, Denies dyspnea and Reports dyspnea on exertion GI Denies hematochezia and Denies change in stool character Musc Details: pain in ribs, pelvis and right shoulder blade Reports abnormal gait, Reports limited range of motion, Reports muscle cramps, Reports muscle weakness, Denies numbness, Denies radiating pain into limb, Denies stiffness and Denies tingling Neuro Reports abnormal gait, Denies dizziness, Denies numbness, Denies tingling and Reports weakness Endo Reports fatigue and Denies palpitations Physical Exam Vital Signs: Last Vital Signs Pulse 52 08/12/23 13:19 BP 124/82 08/12/23 13:19 BMI result Body Mass Index 23.4 Const Other: sitting in wheelchair General: cooperative, comfortable and no acute distress Orientation/consciousness: patient oriented x3 Neck Neck: Yes normal visual inspection and Yes no JVD Resp Effort & Inspection: normal respiratory effort Auscultation: clear to auscultation bilaterally, no crackles, no rales, no rhonchi and no wheezes Cardio Jugular venous distension: no JVD Rate: regular rate Rhythm: regular rhythm Heart sounds: S1 normal heart sound present, S2 normal heart sound present, no murmurs and no rubs Neuro General: patient oriented x3 Extrem General: Yes normal to inspection and No no pedal edema Psych Appearance: grossly normal Mental Status: mental status grossly normal Speech and movement: Normal speech and movement present Office Procedures EKG Details: Today, read by me, sinus bradycardia, nonspecific ST and T-wave abnormality, artifact present on tracing as well, QTC 483 milliseconds, rate 52 [id number], Complete Assessment & Plan Assessment & Plan (1) PAF (paroxysmal atrial fibrillation): Code(s): I48.0 - Paroxysmal atrial fibrillation Plan: Newer finding of atrial fibrillation, 10/2022 when she presented for shortness of breath and treated for AFib, Congestive heart failure and cardiomyopathy. She initially treated with heart rate control. She was started on Eliquis for anticoagulation. She then underwent cardioversion as an outpatient on 12/24/2022 with successful conversion to sinus rhythm. She was put on amiodarone for rhythm control. EKG done 02/07/2023 showed sinus bradycardia, heart rate 56. She was [place] [facility] [place] with JACQUELINE and her Eliquis dose was reduced to 2.5 mg b.i.d. EKG done today shows sinus bradycardia, nonspecific ST and T-wave abnormality, unchanged from prior, rate 52 QTC 483 milliseconds. Labs done 05/06/2023 shows normal LFT, normal TSH. Will reduce carvedilol to 3.125 mg bid, continue on amiodarone. Recommend stopping clonidine which he is receiving at her rehab facility. Labs done at [facility] on 07/03/2023 shows creatinine 1.5. Will continue on Eliquis 2.5 mg b.i.d. which is appropriate for weight and creatinine. Instructed to let us know if she has any recurrent heart palpitations. Cardiology follow-up in 3-4 months, sooner if needed (2) Cardiomyopathy: Code(s): I42.9 - Cardiomyopathy, unspecified Qualifiers: Cardiomyopathy type: unspecified Qualified Code(s): I42.9 - Cardiomyopathy, unspecified Plan: Most likely related to AFib with uncontrolled rates. Echocardiogram done 10/22/2022 had shown EF 25-30%, moderate to severe decrease in the RV systolic function, left atrium severely dilated, right atrium moderately dilated, [id number] tricuspid regurgitation, significantly elevated right atrial pressures, no pulmonary hypertension. She was put on carvedilol, Lasix and Aldactone. Her Aldactone dose was reduced to 12.5 mg in February for JACQUELINE. Repeat echocardiogram done 04/03/2023 showed EF 40%, global hypokinesis, apex, apical septum akinetic. Reviewed with Dr. Lowery. EF is improving. No need for stress test at present as she has no anginal symptoms. Continue with medical management. Signs and symptoms of heart failure reviewed with her. Recheck echocardiogram prior to next visit. (3) Coronary artery disease: Code(s): I25.10 - Atherosclerotic heart disease of [place] coronary artery without angina pectoris Qualifiers: Associated angina: without angina Coronary Disease-Associated Artery/Lesion type: [place] artery [place] vs. transplanted heart: [place] heart Qualified Code(s): I25.10 - Atherosclerotic heart disease of [place] coronary artery without angina pectoris Plan: History of CAD with prior Coronary artery bypass grafting. No reports of anginal sounding symptoms. Continue med management for stable CAD. She is not on aspirin as she is on Eliquis. She is on carvedilol. She is on atorvastatin with ideal LDL goal less than 70. Will plan for a recheck of fasting lipids at next visit. (4) HTN (hypertension): Code(s): I10 - Essential (primary) hypertension Qualifiers: Hypertension type: primary hypertension Qualified Code(s): I10 - Essential (primary) hypertension Plan: Well controlled at present. Carvedilol being reduced due to slow heart rate Plan Time spent on chart review, documentation, interview and assessment Coding Level of Care Code Est Pt Level 4 (67168) Diagnoses PAF (paroxysmal atrial fibrillation) I48.0 Cardiomyopathy, unspecified type I42.9 Cardiomyopathy type: unspecified Coronary artery disease involving [place] coronary artery of [place] heart without angina pectoris I25.10 Associated angina: without angina Coronary Disease-Associated Artery/Lesion type: [place] artery [place] vs. transplanted heart: [place] heart Primary hypertension I10 Hypertension type: primary hypertension CPT Codes EKG - CPT: [id number], Complete ([id number]) Time Spent (min) 30
[2023-08-12 13:19] VITALS: BP 124/82; PULSE 52; BMI 23.4
== END 2023-08-12 14:10 | disposition home or self-care (01) ==
PROVIDERS: Visit Provider Nurse Practitioner Family
DX: I48.0 Paroxysmal atrial fibrillation (principal); I42.9 Cardiomyopathy, unspecified; I25.10 Atherosclerotic heart disease of native coronary artery without angina pectoris; I10 Essential (primary) hypertension
CPT/HCPCS: 93010; 99214

== ENCOUNTER → 2023-08-12 13:15 | Outpatient (BNVA) | payer OTHER, SELFPAY | PROVIDERS: Visit Provider Nurse Practitioner Family | DX: I48.0 Paroxysmal atrial fibrillation (principal); I42.9 Cardiomyopathy, unspecified; I25.10 Atherosclerotic heart disease of native coronary artery without angina pectoris; I10 Essential (primary) hypertension; Z79.01 Long term (current) use of anticoagulants; Z79.899 Other long term (current) drug therapy | CPT/HCPCS: 93005; 99212 ==